=== PATIENT | female | born 1950 | race Caucasian/White ===

== ENCOUNTER 2020-03-20 12:03 | Outpatient (REF) | payer MEDICARE, SELFPAY | END 2020-03-20 12:04 | disposition home or self-care (01) | LOC: HO.10HDL 12:03 | PROVIDERS: Absent Provider Pediatrics; Visit Provider Internal Medicine | DX: E03.9 Hypothyroidism, unspecified (principal) | CPT/HCPCS: 36415; 84443 ==

== ENCOUNTER 2021-01-24 20:42 | Emergency (ER) | payer MEDICARE, SELFPAY ==
--- NOTE | ~2021-01-24 | CT_ITS ---
EXAMINATION: CT ABDOMEN AND PELVIS WITH AND WITHOUT CONTRAST: CT GI BLEEDING STUDY CLINICAL INFORMATION: Reason for Exam History of lymphocytic colitis, GI bleed, lower abd pain . COMPARISON: No pertinent prior studies are available for comparison. TECHNIQUE: Multidetector volumetric imaging was performed from the lung bases to the pubic symphysis before and after the administration of: Intravenous contrast: 80 mL Omnipaque 350 No contrast reaction reported MIP coronal, sagittal and coronal reformatted images were obtained on the technologist workstation. This CT examination was performed using dose optimization techniques as appropriate, variously including the following: *Automated exposure control *Adjustment of mA and/or kV according to patient size (this includes techniques or standardized protocols for targeted exams where dose is matched to indication/reason for exam; i.e. extremities or head) *Use of iterative reconstruction technique Total exam dose-length product 522 mGy-cm FINDINGS: STOMACH: No abnormal wall thickening or mass. No intraluminal contrast accumulation to suggest hemorrhage. Hyperdense tablets are identified dependently in the stomach fundus. SMALL BOWEL: There is pooling of contrast in the distal small bowel, concerning for active bleeding (image 138 of series 16). The small bowel is nondilated. COLON: No intraluminal contrast accumulation to suggest hemorrhage. There is submucosal fatty infiltration throughout the colon suggesting a chronic inflammatory or infectious process. No active inflammatory bowel changes. No bowel obstruction. Normal appendix. LUNG BASES: Dependent atelectasis. No focal consolidation. PLEURA: No pleural effusion. LIVER, GALLBLADDER, AND BILIARY TREE: The liver is normal in size, shape and attenuation. The common bile duct is dilated up to 1.4 cm. There is also mild intrahepatic biliary duct dilatation. No choledocholithiasis is identified. The patient is status post cholecystectomy. PANCREAS: The pancreatic duct at the level of the head is mildly dilated up to 6 mm. There are no discrete parenchymal lesions. SPLEEN: Normal size. No focal lesion. ADRENAL GLANDS: Normal; no mass. KIDNEYS AND URETERS: The kidneys are normal in size, shape, and attenuation. Right extrarenal pelvis. Tiny hypodensities bilaterally are too small to characterize although likely statistically represent simple cysts and do not require follow-up. No hydronephrosis, hydroureter, or calculi. ABDOMINAL WALL: No hernia seen. LYMPHOVASCULAR STRUCTURES: Mesenteric stranding and prominent mesenteric lymph nodes in the upper abdomen (image 38 of series 9) of uncertain etiology. No lymphadenopathy by size criteria. BLADDER: Linear accumulation of contrast in the dependent portion of the urinary bladder. No focal abnormalities. No perivesical fat stranding. PELVIC VISCERA: Hysterectomy. Trace amount of free fluid measuring simple fluid in attenuation. Ovaries are not identified, possibly bilateral oophorectomy. Correlate with surgical history. OSSEOUS STRUCTURES: Posterior fusion hardware in the lower lumbar spine/upper sacrum. Advanced thoracolumbar spondylosis. No acute or aggressive osseous abnormalities. CT/CT gi bleed abd pel wo/w con IMPRESSION: Hyperdensity within the lumen of the small bowel on postcontrast images that becomes more apparent in later phases of contrast, concerning for small bowel bleed. No definite colonic bleed. Dilatation of the common bile duct and proximal pancreatic duct worrisome for an occult lesion. Recommend further evaluation with an MR of the abdomen with MRCP and intravenous contrast. Mesenteric haziness and prominent mesenteric lymph nodes in the upper abdomen of uncertain etiology. This could be seen acutely in cases of mesenteric adenitis. This critical result was discussed with Dr. Gunter at 01/24/2021 11:08 PM and it was ascertained that the content and urgency of the report was understood at the time of direct communication.
[2021-01-24 20:46] VITALS: BP 105/48; PULSE 100; RESP 18; TEMP 36.7; O2SAT 98; BMI 26.2
--- NOTE | 2021-01-24 21:04 | PC.NURSE ---
while in the waiting room, this patient attempted to get up from her seat, per family with patient she felt dizzy sat back down and went unresponsive, this nurse was called to the patient and noted the patient to be having seizure like activity and was not responsive to verbal stimulus, this lasted approximately 1 minute, patients O2 sat was 95% HR 83 during this time. patient woke and was disoriented and noted to be incontinent of what looked to be blood. charge nurse was notified, stretcher was brought to the waiting room and patient was transferred to stretcher.
--- NOTE | 2021-01-24 21:05 | ECG_ITS ---
Test Reason : BLEED Blood Pressure : / mmHG Vent. Rate : 084 BPM Atrial Rate : 084 BPM P-R Int : 120 ms QRS Dur : 070 ms QT Int : 398 ms P-R-T Axes : 045 048 046 degrees QTc Int : 470 ms Normal sinus rhythm Normal ECG No previous ECGs available Referred By: Hieu Villeda Electronically Signed By:ATA MATOS MD
--- NOTE | 2021-01-24 21:11 | ED_ITS ---
HPI - GI Bleed General Chief complaint: GI Bleed Stated complaint: rectum bleeding Time Seen by Provider: 01/24/21 21:03 Source: patient Mode of arrival: ambulatory Limitations: no limitations History of Present Illness HPI Narrative: Patient with no history of any GI problems since 18:00 noticed maroon colored blood per rectum with clots small amount of stool associated with diffuse lower abdominal cramping and nausea. No fever no chills not on any anticoagulants patient never had similar complaint in the past had colonoscopy 3 years ago which was normal patient feels weak and dizzy Related Data Allergies Allergy/AdvReac Type Severity Reaction Status Date / Time vancomycin [VANCOMYCIN] Allergy Severe ANAPHYLAXIS Verified 01/24/21 20:45 amoxicillin [From AUGMENTIN] Allergy Intermediate DIARRHEA Verified 01/24/21 20:45 clavulanic acid Allergy Intermediate DIARRHEA Verified 01/24/21 20:45 [From AUGMENTIN] egg [EGG] Allergy Intermediate ABD PAIN Verified 01/24/21 20:45 morphine [MORPHINE] Allergy Intermediate VOMITING Verified 01/24/21 20:45 ofloxacin [From FLOXIN] Allergy Mild WORSENING Verified 01/24/21 20:45 EAR SX Sulfa (Sulfonamide Allergy Mild Unknown Verified 01/24/21 20:45 Antibiotics) sulfamethoxazole Allergy Mild JITTERY Verified 01/24/21 20:45 [From BACTRIM] trimethoprim [From BACTRIM] Allergy Mild JITTERY Verified 01/24/21 20:45 EGGS Allergy Unknown Unknown Uncoded 01/24/21 20:45 POLLEN MOLD Allergy Unknown Unknown Uncoded 01/24/21 20:45 Review of Systems Review of Systems: Yes all other systems are reviewed and are negative PMFSH Past Medical History Medical History FH: cholecystectomy Vipul's thyroiditis Lupus profundus Lymphocytic colitis Cook's neuroma Osteoarthritis Osteopenia Polychondritis Raynauds disease Surgical History H/O shoulder surgery H/O: hysterectomy History of back surgery Social History Social History Patient Tobacco Use Status: Never used Tobacco Advance Directives: No Advance Directives Information Provided: No Physical Exam Vital Signs: Vital Signs: Last Vital Signs Temp 97.5 F 01/24/21 23:26 Pulse 74 01/25/21 00:43 Resp 16 01/25/21 00:43 BP 115/52 L 01/25/21 00:43 Pulse Ox 100 01/25/21 00:43 Body Mass Index 26.2 Appearance: Alert. Oriented X3. Looks pale and weak Eyes: Pallor+ no icterus ENT: Pharynx normal. Oral Mucosa moist no gum bleeding Neck: Normal inspection. Neck supple. CVS: Normal heart rate and rhythm. Pulses normal. Respiratory: No respiratory distress. Equal air entry bilateral, no wheezing/r ales/rhonchi Abdomen: Soft , diffuse lower abdominal tenderness Bowel sounds are present, no mass palpable, no CVA tenderness Skin: Skin warm and dry. Normal skin color. Normal skin turgor. Extremities: No lower extremity edema. No calf tenderness Neuro: Oriented X 3. No motor deficit. Course Reevaluation(s) Reevaluation #1: Patient with lower GI bleed had heavy amount of bleeding on arrival then again had moderate amount of bleeding with blood clots at this time blood pressure is 124/62 pulse rate 80 hemoglobin 9.1 will be giving her 2 units of blood transfusion. Bleeding CT scan of abdomen showed small amount of active bleeding in distal ileum area. Will consult Dr. Rodriguez lead technologist in cytogenetics Time: 23:15 Reevaluation #2: Case discussed with Dr. Rodriguez GI specialist advised patient transferred to tertiary center for transcatheter embolization. Call [facility] not accepting patient transfer at this time, will try to call [facility] for transfer Time: 23:27 Reevaluation #3: Patient at this time not actively bleeding for last 2 hours vitals are stable case discussed with lead technologist in cytogenetics again advised transfer patient to tertiary center as patient may need embolization any time if bleeding recurs. Case discussed with at [facility], will take the patient to ER accepting doctor will be Dr. Joshua at [facility] Time: 00:51 MDM - GI Bleed MDM Narrative Medical decision making narrative: 21:00 Patient with major hematochezia with blood clots at this time blood pressure is stable 105/48 pulse rate 100 saturating 98% on room air will give her 1 unit of blood for now, tranexamic acid [address] scan of the abdomen Lab Data Result diagrams: 01/24/21 21:17 01/24/21 21:17 Labs: Lab Results 01/24/21 01/24/21 01/24/21 Range/Units 21:17 21:17 21:17 WBC 14.6 H (4.8-10.8) X10*3/uL RBC 3.18 L (4.20-5.50) X10*6/uL Hgb 9.1 L (12.0-16.0) g/dl Hct 27.6 L (37.0-47.0) % MCV 86.8 (80.0-98.0) fL MCH 28.6 (27.0-33.0) pg MCHC 33.0 (31.0-35.0) g/dl RDW 13.0 (11.0-16.0) % Plt Count 313 (160-400) X10*3/uL MPV 10.4 (9.4-12.3) fL Immature Gran % (Auto) 0.3 (0.0-0.4) % Neut % (Auto) 77.5 H (45-73) % Lymph % (Auto) 15.1 L (20-40) % Kent % (Auto) 5.8 (2-11) % Eos % (Auto) 0.3 (0-4) % Baso % (Auto) 1.0 (0-2) % Lymph # (Auto) 2.2 (1.2-4.9) X10*3/uL Kent # (Auto) 0.8 (0.1-1.2) X10*3/uL Eos # (Auto) 0.1 (0.0-0.4) X10*3/uL Baso # (Auto) 0.1 (0.0-0.2) X10*3/uL Abs Immat Gran (auto) 0.05 H (0.00-0.03) X10*3/uL Absolute Neuts (auto) 11.3 H (2.0-8.3) x10*3/uL Absolute Nucleated RBC 0.000 (0.0-0.012) X10*3/uL Nucleated RBC % (auto) 0.0 (0.0-0.2) /100WBC PT 13.1 H (9.9-13.0) SEC INR 1.2 H (0.9-1.1) APTT 28.9 (24.1-38.0) SEC Sodium 134 L (135-145) mmol/L Potassium 4.4 (3.3-5.1) mmol/L Chloride 110 H (96-108) mmol/L Carbon Dioxide 13 L (22-29) mmol/L Anion Gap 15 (12-20) BUN 17 H (9-16) mg/dL Creatinine 0.85 (0.5-1.4) mg/dL Estim Creat Clear Calc 57.5 Estimated GFR > 60 Random Glucose 173 H (60-115) mg/dL Lactic Acid (0.5-2.0) mmol/L Calcium 8.3 L (8.4-10.2) mg/dL Total Bilirubin 0.3 (0.0-1.0) mg/dL AST 30 (5-31) U/L ALT 16 (0-31) U/L Alkaline Phosphatase 116 (39-117) U/L Troponin I High Sens (<3.5-17.0) ng/L Total Protein 6.2 L (6.5-8.0) g/dL Albumin 3.5 (3.5-5.0) g/dL Lipase 18 (8-78) U/L COVID-19 (TEE) (Negative) COVID-19 Clin Com Blood Type Antibody Screen Crossmatch 01/24/21 01/24/21 01/24/21 Range/Units 21:17 21:17 21:20 WBC (4.8-10.8) X10*3/uL RBC (4.20-5.50) X10*6/uL Hgb (12.0-16.0) g/dl Hct (37.0-47.0) % MCV (80.0-98.0) fL MCH (27.0-33.0) pg MCHC (31.0-35.0) g/dl RDW (11.0-16.0) % Plt Count (160-400) X10*3/uL MPV (9.4-12.3) fL Immature Gran % (Auto) (0.0-0.4) % Neut % (Auto) (45-73) % Lymph % (Auto) (20-40) % Kent % (Auto) (2-11) % Eos % (Auto) (0-4) % Baso % (Auto) (0-2) % Lymph # (Auto) (1.2-4.9) X10*3/uL Kent # (Auto) (0.1-1.2) X10*3/uL Eos # (Auto) (0.0-0.4) X10*3/uL Baso # (Auto) (0.0-0.2) X10*3/uL Abs Immat Gran (auto) (0.00-0.03) X10*3/uL Absolute Neuts (auto) (2.0-8.3) x10*3/uL Absolute Nucleated RBC (0.0-0.012) X10*3/uL Nucleated RBC % (auto) (0.0-0.2) /100WBC PT (9.9-13.0) SEC INR (0.9-1.1) APTT (24.1-38.0) SEC Sodium (135-145) mmol/L Potassium (3.3-5.1) mmol/L Chloride (96-108) mmol/L Carbon Dioxide (22-29) mmol/L Anion Gap (12-20) BUN (9-16) mg/dL Creatinine (0.5-1.4) mg/dL Estim Creat Clear Calc Estimated GFR Random Glucose (60-115) mg/dL Lactic Acid 1.7 (0.5-2.0) mmol/L Calcium (8.4-10.2) mg/dL Total Bilirubin (0.0-1.0) mg/dL AST (5-31) U/L ALT (0-31) U/L Alkaline Phosphatase (39-117) U/L Troponin I High Sens < 3.5 (<3.5-17.0) ng/L Total Protein (6.5-8.0) g/dL Albumin (3.5-5.0) g/dL Lipase (8-78) U/L COVID-19 (TEE) (Negative) COVID-19 Clin Com Blood Type AB Positive Antibody Screen NEGATIVE Crossmatch See Detail 01/24/21 Range/Units 21:21 WBC (4.8-10.8) X10*3/uL RBC (4.20-5.50) X10*6/uL Hgb (12.0-16.0) g/dl Hct (37.0-47.0) % MCV (80.0-98.0) fL MCH (27.0-33.0) pg MCHC (31.0-35.0) g/dl RDW (11.0-16.0) % Plt Count (160-400) X10*3/uL MPV (9.4-12.3) fL Immature Gran % (Auto) (0.0-0.4) % Neut % (Auto) (45-73) % Lymph % (Auto) (20-40) % Kent % (Auto) (2-11) % Eos % (Auto) (0-4) % Baso % (Auto) (0-2) % Lymph # (Auto) (1.2-4.9) X10*3/uL Kent # (Auto) (0.1-1.2) X10*3/uL Eos # (Auto) (0.0-0.4) X10*3/uL Baso # (Auto) (0.0-0.2) X10*3/uL Abs Immat Gran (auto) (0.00-0.03) X10*3/uL Absolute Neuts (auto) (2.0-8.3) x10*3/uL Absolute Nucleated RBC (0.0-0.012) X10*3/uL Nucleated RBC % (auto) (0.0-0.2) /100WBC PT (9.9-13.0) SEC INR (0.9-1.1) APTT (24.1-38.0) SEC Sodium (135-145) mmol/L Potassium (3.3-5.1) mmol/L Chloride (96-108) mmol/L Carbon Dioxide (22-29) mmol/L Anion Gap (12-20) BUN (9-16) mg/dL Creatinine (0.5-1.4) mg/dL Estim Creat Clear Calc Estimated GFR Random Glucose (60-115) mg/dL Lactic Acid (0.5-2.0) mmol/L Calcium (8.4-10.2) mg/dL Total Bilirubin (0.0-1.0) mg/dL AST (5-31) U/L ALT (0-31) U/L Alkaline Phosphatase (39-117) U/L Troponin I High Sens (<3.5-17.0) ng/L Total Protein (6.5-8.0) g/dL Albumin (3.5-5.0) g/dL Lipase (8-78) U/L COVID-19 (TEE) Negative (Negative) COVID-19 Clin Com See Note Blood Type Antibody Screen Crossmatch Critical Care Time Critical Care Time Critical Care Time: Yes Total Critical Care Time: 50 Attestation: I spent 540 minutes of critical care, with interventions, assessments, speaking to patient, consultants, and family. Discharge Plan Discharge Clinical Impression: Lower gastrointestinal hemorrhage Patient Disposition: [facility] Acute [facility] Hospital Transfer Details: [facility] ER
[2021-01-24] MEDS: Tranexamic Acid 1,000 MG in 0.9 % Sodium Chloride 50 ML 360 MG IV (21:23)
[2021-01-24] MEDS: 0.9 % Sodium Chloride 1,000 ML 999 ML IV ×2 (21:23)
[2021-01-24] MEDS: Pantoprazole Sodium 40 MG/10 ML VIAL 80 MG IVPUSH (21:23)
[2021-01-24 21:26] LABS: MANUAL DIFF FLAG NO
[2021-01-24] MEDS: ondansetron HCL 4 MG/2 ML VIAL IVPUSH ×2 (21:27→21:59)
[2021-01-24 21:29] LABS: Basophils Absolute Auto 0.1 X10*3/uL (0.0-0.2); Eosinophils Absolute Auto 0.1 X10*3/uL (0.0-0.4); Eosinophils Percent Auto 0.3 % (0-4); Hematocrit 27.6 % (37.0-47.0); Hemoglobin 9.1 g/dl (12.0-16.0); Imm Gran Abs Auto 0.05 X10*3/uL (0.00-0.03); Imm Gran Pct Auto 0.3 % (0.0-0.4); Lymphocytes Absolute Auto 2.2 X10*3/uL (1.2-4.9); Lymphocytes Percent Auto 15.1 % (20-40); Mean Corpuscular Hemoglobin 28.6 pg (27.0-33.0); Mean Corpuscular Volume 86.8 fL (80.0-98.0); Mean Platelet Volume 10.4 fL (9.4-12.3); Monocytes Absolute Auto 0.8 X10*3/uL (0.1-1.2); Monocytes Percent Auto 5.8 % (2-11); Neutrophils Absolute Auto 11.3 x10*3/uL (2.0-8.3); Neutrophils Percent Auto 77.5 % (45-73); Platelet Count 313 X10*3/uL (160-400); Red Blood Count 3.18 X10*6/uL (4.20-5.50); White Blood Count 14.6 X10*3/uL (4.8-10.8)
[2021-01-24 21:34] LABS: INTERNATIONAL NORM RATIO 1.2 (0.9-1.1); Prothrombin Time 13.1 SEC (9.9-13.0)
[2021-01-24 21:36] LABS: Partial Thromboplastin Time 28.9 SEC (24.1-38.0)
[2021-01-24 21:39] VITALS: BP 138/67; PULSE 81; RESP 20; TEMP 36.5; O2SAT 100
[2021-01-24 21:40] LABS: Lactic Acid 1.7 mmol/L (0.5-2.0)
[2021-01-24 21:43] LABS: COVID-19 Test Negative (Negative)
[2021-01-24 21:46] LABS: Alanine Aminotransferase 16 U/L (0-31); Albumin Level 3.5 g/dL (3.5-5.0); Alkaline Phosphatase 116 U/L (39-117); Anion Gap 15 (12-20); Aspartate Amino Transferase 30 U/L (5-31); Bilirubin Total 0.3 mg/dL (0.0-1.0); Blood Urea Nitrogen 17 mg/dL (9-16); Calcium 8.3 mg/dL (8.4-10.2); Carbon Dioxide 13 mmol/L (22-29); Chloride 110 mmol/L (96-108); Creatinine Clr Calc Pharmacy 57.5; Estimated Glomerular Filt Rate > 60; Glucose Random 173 mg/dL (60-115); Lipase 18 U/L (8-78); Potassium 4.4 mmol/L (3.3-5.1); Sodium 134 mmol/L (135-145); Total Protein 6.2 g/dL (6.5-8.0)
--- NOTE | 2021-01-24 21:48 | PC.NURSE ---
pt a&o, no sob or chest pain. pt admitted with a large amount of rectal bleeding with clots. Two Iv lines placed, medicated per Mar. Ekg, labs, type and screen collected and sent. provider in to assess. Hospitalist into assess pt.
[2021-01-24 21:49] LABS: Troponin-I High Sensitivity < 3.5 ng/L (<3.5-17.0)
[2021-01-24] MEDS: iohexoL 350 MG/ML 100 ML INFUS..BTL IV (22:32)
[2021-01-24 22:41] VITALS: BP 144/40; PULSE 78; RESP 18; TEMP 36.4; O2SAT 100
[2021-01-24 23:10] VITALS: BP 124/62; PULSE 80; RESP 16; TEMP 36.6
[2021-01-24 23:26] VITALS: BP 114/70; PULSE 77; RESP 16; TEMP 36.4
--- NOTE | 2021-01-24 23:30 | PC.NURSE ---
first unit of blood transfusing. provider in to discuss transfer to another facility.
[2021-01-24] MEDS: Prochlorperazine Edisylate 10 MG/2 ML VIAL IVPUSH (23:35)
--- NOTE | 2021-01-25 00:40 | PC.NURSE ---
pt assisted to the bed levin. no bloody stool at this time.
[2021-01-25 00:43] VITALS: BP 115/52; PULSE 74; RESP 16; O2SAT 100
--- NOTE | 2021-01-25 00:45 | PC.NURSE ---
pt reports feeling better at this time.
[2021-01-25 01:02] VITALS: BP 124/48; PULSE 72; RESP 16; TEMP 36.7
[2021-01-25 01:26] VITALS: BP 124/48; PULSE 76; RESP 18; TEMP 36.7
[2021-01-25 01:43] VITALS: BP 149/58; PULSE 77; RESP 16; TEMP 36.7
--- NOTE | 2021-01-25 01:51 | PC.NURSE ---
Started second unit and second set of vitals taken. Ended second unit due to pt being transferred. Consulted with charge nurse in regards to process. Pt has not had no bloody stools for the last couple of hours. Report given to [employer]. Pt on route.
== END 2021-01-25 01:51 | disposition short-term general hospital (02) ==
PROVIDERS: Emergency Medicine Emergency Medical Services; Emergency Provider Internal Medicine; PCP Pediatrics
DX: K92.2 Gastrointestinal hemorrhage, unspecified (principal); Z20.822 Contact with and (suspected) exposure to COVID-19
CPT/HCPCS: 36415; 36430; 74178; 80053; 83605; 83690; 84484; 85025; 85610; 85730; 86850; 86900; 86901; 86923; 87635; 93005; 96361; 96374; 96375; 99285; 99291; J2405; P9016; Q9967

== ENCOUNTER 2022-01-08 14:54 | Outpatient (REF) | payer MEDICARE, SELFPAY ==
[2022-01-08 16:32] LABS: TSH reflex Free T4 5.12 uIU/mL (0.32-4.0)
== END 2022-01-08 14:55 | disposition home or self-care (01) ==
LOC: HO.LAB 14:54
PROVIDERS: PCP Internal Medicine; Visit Provider Internal Medicine
DX: E03.9 Hypothyroidism, unspecified (principal)
CPT/HCPCS: 36415; 84439; 84443

== ENCOUNTER 2022-04-10 14:30 | Outpatient (REF) | payer MEDICARE, SELFPAY ==
[2022-04-10 15:50] LABS: TSH reflex Free T4 2.32 uIU/mL (0.32-4.0)
== END 2022-04-10 14:31 | disposition home or self-care (01) ==
LOC: HO.LAB 14:30
PROVIDERS: PCP Internal Medicine; Visit Provider Internal Medicine
DX: E03.9 Hypothyroidism, unspecified (principal)
CPT/HCPCS: 36415; 84443

== ENCOUNTER 2023-10-08 12:58 | Outpatient (AMB) | payer MEDICARE, SELFPAY ==
--- NOTE | 2023-10-08 13:00 | A.OFFVIS_ITS ---
Vital Signs 10/08/23 13:01 Height 5 ft 3 in Weight 151 lb 14.376 oz BMI 26.9 BP 130/74 Blood Pressure Location Lt brachial Position Sitting Pulse 75 Pulse Source Pulse Oximeter Intake Visit Reasons: Hypothyroidism-confirmed Intake Note: New patient present today for Hypothyroidism. 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 Accompanied by: Self / Same As Patient Allergies vancomycin [VANCOMYCIN] Allergy (Severe, Verified 10/08/23 13:14) ANAPHYLAXIS amoxicillin [From AUGMENTIN] Allergy (Intermediate, Verified 10/08/23 13:14) DIARRHEA clavulanic acid [From AUGMENTIN] Allergy (Intermediate, Verified 10/08/23 13:14) DIARRHEA egg [EGG] Allergy (Intermediate, Verified 10/08/23 13:14) ABD PAIN morphine [MORPHINE] Allergy (Intermediate, Verified 10/08/23 13:14) VOMITING ofloxacin [From FLOXIN] Allergy (Mild, Verified 10/08/23 13:14) WORSENING EAR SX Sulfa (Sulfonamide Antibiotics) Allergy (Mild, Verified 10/08/23 13:14) Unknown sulfamethoxazole [From BACTRIM] Allergy (Mild, Verified 10/08/23 13:14) JITTERY trimethoprim [From BACTRIM] Allergy (Mild, Verified 10/08/23 13:14) JITTERY EGGS Allergy (Unknown, Uncoded 10/08/23 13:14) Unknown POLLEN MOLD Allergy (Unknown, Uncoded 10/08/23 13:14) Unknown Medication List - Last Reconciled 10/08/23 by Buddy Ortiz MD albuterol sulfate 90 mcg/actuation inhalation alendronate 70 mg PO QWEEK budesonide-formoterol 160-4.5 mcg/actuation (Symbicort) 1 inh inhalation BID diclofenac sodium 1% topical doxycycline monohydrate 100 mg PO BID estradiol 0.01%(0.1mg/gram) vaginal levothyroxine (Synthroid) 75 mcg PO DAILY lorazepam 0.5 mg PO DAILY meclizine 12.5 mg PO TID trazodone 150 mg PO BEDTIME HPI Comments Details: 73 YO F with who is seen in consultation at the request of his PCP for Hyothyroidism.Saw Alba Fiore First diagnosed with Hypothyroidism 30 yrs ago with labs revealing elevated TSH . Currently using levothyroxine 75 ug . Took 1 1/2 tabs up til 2 mos ago Denies + fatigue, muscle aches +weight gain, -cold intolerance, +dry skin, -hair loss, +constipation. There is no hx of hyperlipidemia . Denies obstructive sx of goiter . Denies consuming any kelp or seaweed. Denies taking amiodarone. Family history of hypothyroidism: sister, son Biotin: No Labs: [facility] Medical History (Updated 10/08/23 @ 13:06 by Buddy Ortiz MD) Hypothyroidism FH: cholecystectomy Cook's neuroma Osteoarthritis Raynauds disease Osteopenia Lymphocytic colitis Polychondritis Vipul's thyroiditis Lupus profundus Surgical History H/O shoulder surgery H/O: hysterectomy History of back surgery Family History (Updated 10/08/23 @ 13:13 by PADILLA John) Mother Lung cancer Father Heart problem Social History Alcohol intake: former Patient Tobacco Use Status: Never used Tobacco Physical Exam HEENT reveals absence of lid lag , stare or proptosis or eyebrow loss. Thyroid gland measure gms . No nodules or tenderness palpated. There is no cervical adenopathy palpated. Lungs CTA. Heart S1, S2 Reg R/R -M/R/G. Abdominal exam benign. Skin exam reveals absence of dryness or thyroid dermopathy or vitiligo. Nail exam reveals absence of thyroid acropachy or oncholysis. Neurologic exam reveals 2+ reflexes . Muscle Strength is 5/5 proximally. There are no tremors in upper extremities. Assessment & Plan Assessment & Plan (1) Hypothyroidism: Code(s): E03.9 - Hypothyroidism, unspecified Category: Medical Plan: This 73-year-old white female with a history of hypothyroidism due to Vipul's thyroiditis. She is currently being treated with 75 mcg levothyroxine branded Synthroid with recently elevated TSH level. She appears to be clinically euthyroid as several nonspecific symptoms Plan is to increase the Synthroid to 88 mcg. Recheck TSH and free T4 in 6 weeks time adjust Synthroid accordingly Orders: Orders Free T4 (Free Thyroxine) 6 Weeks E03.9 - Hypothyroidism, unspecified Thyroid Stimulating Hormone 6 Weeks E03.9 - Hypothyroidism, unspecified Medications: New Synthroid (levothyroxine) 88 mcg PO DAILY 30 tabs 4RF NS Coding Level of Care Code New Pt Level 4 (13197) Diagnoses Hypothyroidism E03.9
[2023-10-08 13:01] VITALS: BP 130/74; PULSE 75; BMI 26.9
== END 2023-10-08 13:42 | disposition home or self-care (01) ==
PROVIDERS: PCP Internal Medicine; Visit Provider Internal Medicine Endocrinology, Diabetes & Metabolism
DX: E03.9 Hypothyroidism, unspecified (principal)
CPT/HCPCS: 99204

== ENCOUNTER → 2023-10-08 12:58 | Outpatient (BNVA) | payer MEDICARE, SELFPAY | PROVIDERS: PCP Internal Medicine; Visit Provider Internal Medicine Endocrinology, Diabetes & Metabolism | DX: E03.9 Hypothyroidism, unspecified (principal) | CPT/HCPCS: 99202 ==

== ENCOUNTER 2023-11-19 12:43 | Outpatient (REF) | payer MEDICARE, SELFPAY ==
[2023-11-19 14:12] LABS: Free T4 (Free Thyroxine) 1.31 ng/dL (0.71-1.85); Thyroid Stimulating Hormone 0.78 uIU/mL (0.32-4.0)
== END 2023-11-19 12:44 | disposition home or self-care (01) ==
LOC: HO.10HDL 12:43
PROVIDERS: Visit Provider Internal Medicine Endocrinology, Diabetes & Metabolism
DX: E03.9 Hypothyroidism, unspecified (principal)
CPT/HCPCS: 36415; 84439; 84443

== ENCOUNTER 2024-01-06 12:11 | Outpatient (REF) | payer MEDICARE, SELFPAY ==
[2024-01-06 13:47] LABS: Free T4 (Free Thyroxine) 1.28 ng/dL (0.71-1.85); Thyroid Stimulating Hormone 0.99 uIU/mL (0.32-4.0)
== END 2024-01-06 12:12 | disposition home or self-care (01) ==
LOC: HO.LAB 12:11
PROVIDERS: PCP Internal Medicine; Visit Provider Internal Medicine Endocrinology, Diabetes & Metabolism
DX: E03.9 Hypothyroidism, unspecified (principal)
CPT/HCPCS: 36415; 84439; 84443

== ENCOUNTER 2024-02-04 13:39 | Outpatient (REF) | payer MEDICARE, SELFPAY ==
[2024-02-04 15:22] LABS: Thyroid Stimulating Hormone 1.15 uIU/mL (0.32-4.0)
== END 2024-02-04 13:40 | disposition home or self-care (01) ==
LOC: HO.LAB 13:39
PROVIDERS: PCP Internal Medicine; Visit Provider Internal Medicine Endocrinology, Diabetes & Metabolism
DX: E03.9 Hypothyroidism, unspecified (principal)
CPT/HCPCS: 36415; 84439; 84443

== ENCOUNTER 2024-02-15 12:53 | Outpatient (AMB) | payer MEDICARE, SELFPAY ==
--- NOTE | 2024-02-15 12:57 | MHC.OFFVIS ---
Vital Signs 02/15/24 13:00 Height 5 ft 3 in Weight 152 lb 8.958 oz BMI 27.0 BP 134/72 Blood Pressure Location Lt brachial Position Sitting Pulse 70 Pulse Source Pulse Oximeter Intake Visit Reasons: Hypothyroidism Intake Note: Patient present today for Hypothyroidism follow up. 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 Accompanied by: Self / Same As Patient Allergies vancomycin [VANCOMYCIN] Allergy (Severe, Verified 02/15/24 13:01) ANAPHYLAXIS amoxicillin [From AUGMENTIN] Allergy (Intermediate, Verified 02/15/24 13:01) DIARRHEA clavulanic acid [From AUGMENTIN] Allergy (Intermediate, Verified 02/15/24 13:01) DIARRHEA egg [EGG] Allergy (Intermediate, Verified 02/15/24 13:01) ABD PAIN morphine [MORPHINE] Allergy (Intermediate, Verified 02/15/24 13:01) VOMITING ofloxacin [From FLOXIN] Allergy (Mild, Verified 02/15/24 13:01) WORSENING EAR SX Sulfa (Sulfonamide Antibiotics) Allergy (Mild, Verified 02/15/24 13:01) Unknown sulfamethoxazole [From BACTRIM] Allergy (Mild, Verified 02/15/24 13:01) JITTERY trimethoprim [From BACTRIM] Allergy (Mild, Verified 02/15/24 13:01) JITTERY EGGS Allergy (Unknown, Uncoded 02/15/24 13:01) Unknown POLLEN MOLD Allergy (Unknown, Uncoded 02/15/24 13:01) Unknown Medication List - Last Reconciled 02/15/24 by Buddy Ortiz MD albuterol sulfate 90 mcg/actuation inhalation alendronate 70 mg PO QWEEK budesonide-formoterol 160-4.5 mcg/actuation (Symbicort) 1 inh inhalation BID diclofenac sodium 1% topical estradiol 0.01%(0.1mg/gram) vaginal lorazepam 0.5 mg PO DAILY meclizine 12.5 mg PO TID Synthroid (levothyroxine) 75 mcg PO DAILY NS trazodone 150 mg PO BEDTIME HPI Comments Details: 73 YO F with who is seen in consultation at the request of his PCP for Hyothyroidism.Saw Alba Cleaning Macarena First diagnosed with Hypothyroidism 30 yrs ago with labs revealing elevated TSH . Currently using levothyroxine 75 ug . Took 1 1/2 tabs up til 2 mos ago Denies + fatigue, muscle aches +weight gain, -cold intolerance, +dry skin, -hair loss, +constipation. There is no hx of hyperlipidemia . Denies obstructive sx of goiter . Denies consuming any kelp or seaweed. Denies taking amiodarone. Family history of hypothyroidism: sister, son Biotin: No Labs: [facility] Medical History (Updated 10/08/23 @ 13:06 by Buddy Ortiz MD) Hypothyroidism FH: cholecystectomy Cook's neuroma Osteoarthritis Raynauds disease Osteopenia Lymphocytic colitis Polychondritis Vipul's thyroiditis Lupus profundus Surgical History H/O shoulder surgery H/O: hysterectomy History of back surgery Family History (Updated 10/08/23 @ 13:13 by PADILLA John) Mother Lung cancer Father Heart problem Social History (Updated 10/08/23 @ 13:13 by PADILLA John) Alcohol intake: former Patient Tobacco Use Status: Never used Tobacco Physical Exam Const Other: Thyroid gland is normal size weighs about 15 g . 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 She is currently being treated with 75 mcg levothyroxine branded Synthroid . She appears to be clinically and biochemically euthyroid Plan is to continue the current therapy. At this point, patient can follow up with the primary care provider returned back to endocrinology as needed Coding Level of Care Code Est Pt Level 3 (35283) Diagnoses Hypothyroidism E03.9
[2024-02-15 13:00] VITALS: BP 134/72; PULSE 70; BMI 27.0
== END 2024-02-15 13:12 | disposition home or self-care (01) ==
PROVIDERS: PCP Internal Medicine; Visit Provider Internal Medicine Endocrinology, Diabetes & Metabolism
DX: E03.9 Hypothyroidism, unspecified (principal)
CPT/HCPCS: 99213

== ENCOUNTER → 2024-02-15 12:53 | Outpatient (BNVA) | payer MEDICARE, SELFPAY | PROVIDERS: PCP Internal Medicine; Visit Provider Internal Medicine Endocrinology, Diabetes & Metabolism | DX: E06.3 Autoimmune thyroiditis (principal); E03.9 Hypothyroidism, unspecified; Z79.899 Other long term (current) drug therapy | CPT/HCPCS: 99212 ==

== ENCOUNTER 2024-03-02 10:45 | Outpatient (AMB) | payer MEDICARE, SELFPAY ==
--- OUTSIDE RECORDS SUMMARY | 2024-03-02 10:48 | XMS_ITS ---
Author Organization [facility] Address [address] [place] [address] Care Team Providers Care Manager Trade Marketing Name Role Phone Bakari Medina Primary Care Provider UnavailLon Pool [facility] [phone] Encounters Encounter Location Date Provider Diagnosis [facility] [address] [place] [address] 10/19/2023 Lon Ware Plan Of Treatment No Information Progress Notes * ЕЛЕНА TatianaDOB:1950 (74 yo F)Acc No.[id number]:10/19/2023 Progress Note Patient:Tatiana NICOLAS Provider:?Lon Ware DPM :1950???Age:73 Y???Sex:Female D ate:10/19/2023 [facility] [place], [place] [id number] Pcp:Bakari Medina Subjective: * Chief Complaints: * ??? * Medical History:? Objective: * Vitals:? Assessment: Plan: * Treatment: * Images: * The named appointment provid er may or may not be the originator of this progress note, and it is not deemed complete until electronically signed by the appointment provider. Sign off status: Pending * Provider:Jef Ware DPM Date:? 024 Generated for Printi ng/Fakourtneyg/eTransmitting on:?03/02/2024 10:48 AM EST
--- OUTSIDE RECORDS SUMMARY | 2024-03-02 10:48 | XMS_ITS ---
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 Generated for Printi shelby/Ashkan/eTransmitting on:?03/02/2024 10:48 AM EST
--- NOTE | 2024-03-02 10:49 | A.OFFVIS_ITS ---
Vital Signs 03/02/24 10:51 Height 5 ft 3 in Weight 153 lb 0.013 oz BMI 27.1 BP 134/64 Blood Pressure Location Lt brachial Position Sitting Pulse 69 Pulse Source Pulse Oximeter Pulse Oximetry (%) 98 Oxygen Delivery Method Room Air Intake Visit Reasons: Arthritis Intake Note: Patient presents for follow up on arthritis and bursitis. She states she needs cortisone shot in right hip. Allergies vancomycin [VANCOMYCIN] Allergy (Severe, Verified 03/02/24 10:54) ANAPHYLAXIS amoxicillin [From AUGMENTIN] Allergy (Intermediate, Verified 03/02/24 10:54) DIARRHEA clavulanic acid [From AUGMENTIN] Allergy (Intermediate, Verified 03/02/24 10:54) DIARRHEA egg [EGG] Allergy (Intermediate, Verified 03/02/24 10:54) ABD PAIN morphine [MORPHINE] Allergy (Intermediate, Verified 03/02/24 10:54) VOMITING ofloxacin [From FLOXIN] Allergy (Mild, Verified 03/02/24 10:54) WORSENING EAR SX Sulfa (Sulfonamide Antibiotics) Allergy (Mild, Verified 03/02/24 10:54) Unknown sulfamethoxazole [From BACTRIM] Allergy (Mild, Verified 03/02/24 10:54) JITTERY trimethoprim [From BACTRIM] Allergy (Mild, Verified 03/02/24 10:54) JITTERY EGGS Allergy (Unknown, Uncoded 03/02/24 10:54) Unknown POLLEN MOLD Allergy (Unknown, Uncoded 03/02/24 10:54) Unknown HPI HPI Arthritis: Details: She is having difficulty with grabbing things with her hands in holding them. No items have dropped out of her hands. She is not having a lot of pain in her hands. She is taking turmeric to help reduce pain in her feet. She was told she had arthritis in her feet. In the last week she has been having pain right lateral hip. She received cortisone injection for trochanteric [facility]ursitis [facility]. She is having difficulty sleeping on her side. [facility] Medical History (Updated 03/02/24 @ 12:39 by Amilcar Kan MD) Hypothyroidism FH: cholecystectomy Cook's neuroma Osteoarthritis Raynauds disease Osteopenia Lymphocytic colitis Polychondritis Vipul's thyroiditis Lupus profundus Surgical History H/O shoulder surgery H/O: hysterectomy History of back surgery Family History Mother Lung cancer Father Heart problem Social History Alcohol intake: former Patient Tobacco Use Status: Never used Tobacco Review of Systems Const All systems reviewed & are unremarkable except as noted in HPI and below Physical Exam Vital Signs: Last Vital Signs Pulse 69 03/02/24 10:51 BP 134/64 03/02/24 10:51 Pulse Ox 98 03/02/24 10:51 Oxygen Delivery Method Room Air 03/02/24 10:51 BMI result Body Mass Index 27.1 Const Other: General: Comfortable CVS: RRR Respiratory: clear to auscultation bilaterally. Good respiratory effort Skin: No lesions seen MSK: No tenderness of any joints. Heberden's nodes present. Subluxation of DIPJ knees. 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 Right trochanteric bursa tenderness found. Good range of motion of hip. Office Procedures AMB Joint Injection/Aspiration Joint Injection/Aspiration Details: Right trochanteric bursa Prep: site was prepped using aseptic technique Injected: 40 mg of, Kenalog, with 1 mL of and 1% plain lidocaine Procedure: The patient tolerated the procedure well Coding 15177 - Large joint Procedure code (CPT) selection complete Office Meds Kenalog 40 mg/mL suspension for injection Performing Provider: Amilcar Kan MD Performing Location: [facility] Administered by: Amilcar Kan MD on 03/02/24 12:36 Dose Route Admin Location Dispensed Lot Number Expiration Date [facility] Demand Planning Manager 40 mg intrabursal 1 mL AP [id number] [employer] lidocaine (PF) 10 mg/mL (1 %) injection solution Performing Provider: Amilcar Kan MD Performing Location: [facility] Administered by: Amilcar Kan MD on 03/02/24 12:36 Dose Route Admin Location Dispensed Lot Number Expiration Date [facility] Demand Planning Manager 10 mg Infiltration 2 mL [id number] [facility] Assessment & Plan Assessment & Plan (1) Trochanteric bursitis: Comment: Right recurrent. Code(s): M70.60 - Trochanteric bursitis, unspecified hip Category: Medical Plan: Right trochanteric bursa cortisone injection given this visit [facility] hip strengthening exercise program printed for patient to do when cortisone injection wears off. She has a high co-pay for physical therapy. [facility] Return to clinic in 3 months. (2) Osteoarthritis, hand: Comment: Clinical diagnosis. We discussed conservative management to improve strength in her hands. Code(s): M19.049 - Primary osteoarthritis, unspecified hand Category: Medical Qualifiers: Osteoarthritis type: primary Laterality: bilateral Qualified Code(s): M19.041 - Primary osteoarthritis, right hand; M19.042 - Primary osteoarthritis, left hand Plan: She agreed to Occupational therapy We discussed the benefit with turmeric helping to reduce pain related to hand osteoarthritis but since she is not experiencing pain, I recommend discontinuing turmeric. Return to clinic in 3 months Orders: Orders AMB Joint Injection/Aspiration Today M70.60 - Trochanteric bursitis, unspecified hip OT Evaluation and Treatment Today M19.049 - Primary osteoarthritis, unspecified hand Coding Level of Care Code Est Pt Level 4 (59251) Complex EM visit Add On G2211 Diagnoses Trochanteric bursitis M70.60 Primary osteoarthritis of both hands M19.041; M19.042 Osteoarthritis type: primary Laterality: bilateral CPT Codes Coding - 17766 Large joint: 86254 - Large joint ([id number])
--- OUTSIDE RECORDS SUMMARY | 2024-03-02 10:49 | XMS_ITS ---
Author Organization [facility] Address [address] [place] [address] Care Team Providers Care Channel Process Supervisor Name Role Phone Bakari Medina Primary Care Provider UnavailLon Pool [phone] REASON FOR VISIT Refill Request Medications Medication SIG (Take, Route, Frequency, Duration) Notes Start Date End Date Status Voltaren 1 % as directed External ly apply bid to toe for 30 days Active Encounters Encounter Location Date Provider Diagnosis [facility] [address] [place] [address] 08/27/2023 Lon Ware Hallux rigidus, left foot M20.22 Assessments Encounter Date Diagnosis (ICD Code) Assessment Notes Treatment Notes Treatment Clinical Notes Section Notes 08/27/2023 Hallux rigidus, left foot (ICD-10 - M20.22) Plan Of Treatment Medication Medication Name Sig Start Date Stop Date Notes Voltaren 1 % as directed External ly apply bid to toe for 30 days Progress Notes * Tatiana BARILLASDOB:1950 (73 yo F)Acc No.[id number]:08/27/2023 Patient:?Eran Tatiana :1950???Age:73 Y???Sex:Female Address:[address] [place] [address], [address] * Refills? Refill Voltaren Gel, 1 %, Externally, 90, as directed, apply bid to toe, 30 days, Refills=6 * true * Date:? Generated for Noy ryan/Ashkan/Waltitting on:?03/02/2024 10:48 AM EST
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
[2024-03-02 10:51] VITALS: BP 134/64; PULSE 69; O2SAT 98; BMI 27.1
== END 2024-03-02 11:25 | disposition home or self-care (01) ==
PROVIDERS: PCP Internal Medicine; Visit Provider Internal Medicine Rheumatology
DX: M70.61 Trochanteric bursitis, right hip (principal); M19.041 Primary osteoarthritis, right hand; M19.042 Primary osteoarthritis, left hand
CPT/HCPCS: 20610; 99213

== ENCOUNTER → 2024-03-02 10:45 | Outpatient (BNVA) | payer MEDICARE, SELFPAY | PROVIDERS: PCP Internal Medicine; Visit Provider Internal Medicine Rheumatology | DX: M70.61 Trochanteric bursitis, right hip (principal); M19.041 Primary osteoarthritis, right hand; M19.042 Primary osteoarthritis, left hand | CPT/HCPCS: 20610; 99212; J2003; J3300 ==

== ENCOUNTER 2024-06-01 10:41 | Outpatient (AMB) | payer MEDICARE, SELFPAY ==
--- NOTE | 2024-06-01 10:42 | MHC.OFFVIS ---
Vital Signs 06/01/24 10:47 Height 5 ft 3 in Weight 147 lb 4 oz BMI 26.1 BP 160/70 H Blood Pressure Location Lt brachial Position Sitting Pulse 83 Pulse Oximetry (%) 95 Oxygen Delivery Method Room Air Intake Visit Reasons: 3 mo follow up Intake Note: Patient presents for follow up on arthritis and bursitis. She states she needs cortisone shot in right hip. Accompanied by: Self / Same As Patient Allergies vancomycin [VANCOMYCIN] Allergy (Severe, Verified 06/01/24 10:56) ANAPHYLAXIS amoxicillin [From AUGMENTIN] Allergy (Intermediate, Verified 06/01/24 10:56) DIARRHEA clavulanic acid [From AUGMENTIN] Allergy (Intermediate, Verified 06/01/24 10:56) DIARRHEA egg [EGG] Allergy (Intermediate, Verified 06/01/24 10:56) ABD PAIN morphine [MORPHINE] Allergy (Intermediate, Verified 06/01/24 10:56) VOMITING ofloxacin [From FLOXIN] Allergy (Mild, Verified 06/01/24 10:56) WORSENING EAR SX Sulfa (Sulfonamide Antibiotics) Allergy (Mild, Verified 06/01/24 10:56) Unknown sulfamethoxazole [From BACTRIM] Allergy (Mild, Verified 06/01/24 10:56) JITTERY trimethoprim [From BACTRIM] Allergy (Mild, Verified 06/01/24 10:56) JITTERY EGGS Allergy (Unknown, Uncoded 03/02/24 10:54) Unknown POLLEN MOLD Allergy (Unknown, Uncoded 03/02/24 10:54) Unknown HPI HPI 3 mo follow up: Details: Hip pain reoccured a few days ago. Hard to sleep. She is having intermittent foot pain of bilateral feet. PFSH Medical History Hypothyroidism FH: cholecystectomy Cook's neuroma Osteoarthritis Raynauds disease Osteopenia Lymphocytic colitis Polychondritis Vipul's thyroiditis Lupus profundus Surgical History H/O shoulder surgery H/O: hysterectomy History of back surgery Family History Mother Lung cancer Father Heart problem Social History Alcohol intake: former Patient Tobacco Use Status: Never used Tobacco Review of Systems Const All systems reviewed & are unremarkable except as noted in HPI and below Physical Exam Vital Signs: Last Vital Signs Pulse 83 06/01/24 10:47 BP 160/70 H 06/01/24 10:47 Pulse Ox 95 06/01/24 10:47 Oxygen Delivery Method Room Air 06/01/24 10:47 BMI result Body Mass Index 26.1 Const Other: General: Comfortable CVS: RRR Respiratory: clear to auscultation bilaterally. Good respiratory effort Skin: No lesions seen MSK: No tenderness of any joints. Heberden's nodes present. Subluxation of DIPJ. Right trochanteric bursa tenderness found. Good range of motion of hip. No tenderness of MTPs. No synovitis. Subluxation of right 3rd toe on 2nd toe. Office Procedures AMB Joint Injection/Aspiration Joint Injection/Aspiration Details: Right trochanteric bursa Prep: site was prepped using aseptic technique Injected: 40 mg of, Kenalog, with 1 mL of and 1% plain lidocaine Procedure: The patient tolerated the procedure well. Postprocedure protocol was discussed with patient. Coding 50365 - Large joint Procedure code (CPT) selection complete Office Meds lidocaine (PF) 10 mg/mL (1 %) injection solution Performing Provider: Amilcar Kan MD Performing Location: [facility] Administered by: Amilcar Kan MD on 06/01/24 12:41 Dose Route Admin Location Dispensed Lot Number Expiration Date [facility] Technology Consultant 10 mg Infiltration 2 mL [id number] [facility] Kenalog 40 mg/mL suspension for injection Performing Provider: Amilcar Kan MD Performing Location: [facility] Administered by: Amilcar Kan MD on 06/01/24 12:41 Dose Route Admin Location Dispensed Lot Number Expiration Date [facility] Technology Consultant 40 mg intra-articular 1 mL AP [id number] [employer] Assessment & Plan Assessment & Plan (1) Trochanteric bursitis: Comment: Right recurrent. Code(s): M70.60 - Trochanteric bursitis, unspecified hip Category: Medical Qualifiers: Laterality: right Qualified Code(s): M70.61 - Trochanteric bursitis, right hip Plan: Right trochanteric bursa cortisone injection given this visit [facility] hip strengthening exercise program printed for patient last visit. I recommend that she start exercise program a few weeks after this visit. She has a high co-pay for physical therapy. Return to clinic in 3 months. (2) Foot pain, bilateral: Comment: Intermittent. Unremarkable exam for localizing pain. Code(s): M79.671 - Pain in right foot; M79.672 - Pain in left foot Category: Medical Plan: We discussed importance of wearing supportive footwear at home and when she is out. If she has persistent foot pain, I will order x-rays at her follow-up appointment Return to clinic in 3 months (3) Osteoarthritis, hand: Comment: Clinical diagnosis. Asymptomatic. Code(s): M19.049 - Primary osteoarthritis, unspecified hand Category: Medical Qualifiers: Osteoarthritis type: primary Laterality: bilateral Qualified Code(s): M19.041 - Primary osteoarthritis, right hand; M19.042 - Primary osteoarthritis, left hand Plan: Monitor clinically Orders: Orders AMB Joint Injection/Aspiration Today M70.60 - Trochanteric bursitis, unspecified hip Coding Level of Care Code Est Pt Level 4 (03015) Complex EM visit Add On G2211 Diagnoses Trochanteric bursitis of right hip M70.61 Laterality: right Foot pain, bilateral M79.671; M79.672 Primary osteoarthritis of both hands M19.041; M19.042 Osteoarthritis type: primary Laterality: bilateral CPT Codes Coding - 90345 Large joint: 02049 - Large joint ([id number])
[2024-06-01 10:47] VITALS: BP 160/70; PULSE 83; O2SAT 95; BMI 26.1
== END 2024-06-01 11:23 | disposition home or self-care (01) ==
LOC: HO.RHES 10:41
PROVIDERS: PCP Internal Medicine; Visit Provider Internal Medicine Rheumatology
DX: M70.61 Trochanteric bursitis, right hip (principal); M79.671 Pain in right foot; M79.672 Pain in left foot; M19.041 Primary osteoarthritis, right hand; M19.042 Primary osteoarthritis, left hand
CPT/HCPCS: 20610; 99214

== ENCOUNTER → 2024-06-01 10:41 | Outpatient (BNVA) | payer MEDICARE, SELFPAY | PROVIDERS: PCP Internal Medicine; Visit Provider Internal Medicine Rheumatology | DX: M70.61 Trochanteric bursitis, right hip (principal); M19.041 Primary osteoarthritis, right hand; M19.042 Primary osteoarthritis, left hand; M79.671 Pain in right foot; M79.672 Pain in left foot | CPT/HCPCS: 20610; 99212; J2003; J3300 ==

== ENCOUNTER 2024-09-23 10:34 | Outpatient (AMB) | payer MEDICARE, SELFPAY ==
[2024-09-23 10:46] VITALS: BP 132/76; PULSE 65; O2SAT 98; BMI 26.9
--- NOTE | 2024-09-23 10:46 | MHC.OFFVIS ---
Vital Signs 09/23/24 10:46 Height 5 ft 3 in Weight 152 lb 1.903 oz BMI 26.9 BP 132/76 Blood Pressure Location Lt brachial Position Sitting Pulse 65 Pulse Source Pulse Oximeter Pulse Oximetry (%) 98 Oxygen Delivery Method Room Air Intake Visit Reasons: 3 Months Intake Note: Patient presents for follow up on arthritis and bursitis. Allergies vancomycin (VANCOMYCIN) Allergy (Severe, Verified 09/23/24 10:53) ANAPHYLAXIS amoxicillin (From AUGMENTIN) Allergy (Intermediate, Verified 09/23/24 10:53) DIARRHEA clavulanic acid (From AUGMENTIN) Allergy (Intermediate, Verified 09/23/24 10:53) DIARRHEA egg (EGG) Allergy (Intermediate, Verified 09/23/24 10:53) ABD PAIN morphine (MORPHINE) Allergy (Intermediate, Verified 09/23/24 10:53) VOMITING ofloxacin (From FLOXIN) Allergy (Mild, Verified 09/23/24 10:53) WORSENING EAR SX Sulfa (Sulfonamide Antibiotics) Allergy (Mild, Verified 09/23/24 10:53) Unknown sulfamethoxazole (From BACTRIM) Allergy (Mild, Verified 09/23/24 10:53) JITTERY trimethoprim (From BACTRIM) Allergy (Mild, Verified 09/23/24 10:53) JITTERY EGGS Allergy (Unknown, Uncoded 09/23/24 10:53) Unknown POLLEN MOLD Allergy (Unknown, Uncoded 09/23/24 10:53) Unknown HPI HPI 3 Months: Details: She had benefit with right trochanteric bursa injection. She continues to have pain at this time. She saw a pasteurizer helper who gave her an insert that change the positioning of her toes 2 weeks ago. She has found benefit with that. Last night she had right foot pain and had to use diclofenac gel with benefit. PFS Medical History Hypothyroidism FH: cholecystectomy Cook's neuroma Osteoarthritis Raynauds disease Osteopenia Lymphocytic colitis Polychondritis Vipul's thyroiditis Lupus profundus Surgical History H/O shoulder surgery H/O: hysterectomy History of back surgery Family History Mother Lung cancer Father Heart problem Social History Alcohol intake: former Patient Tobacco Use Status: Never used Tobacco Physical Exam Vital Signs: Last Vital Signs Pulse 65 09/23/24 10:46 BP 132/76 09/23/24 10:46 Pulse Ox 98 09/23/24 10:46 Oxygen Delivery Method Room Air 09/23/24 10:46 BMI result Body Mass Index 26.9 Const Other: General: Comfortable CVS: RRR Respiratory: clear to auscultation bilaterally. Good respiratory effort Skin: No lesions seen MSK: She has a nodule proximal to radial carpal joint along the 3rd extensor tendon. No pain on palpation of nodule. No tenderness of any joints. Heberden's nodes present. Subluxation of DIPJ. Bilateral trochanteric bursa tenderness found. Normal range of motion of hip. Office Procedures AMB Joint Injection/Aspiration Joint Injection/Aspiration Details: Right trochanteric bursa Prep: site was prepped using aseptic technique Injected: 40 mg of, Kenalog, with 1 mL of and 1% plain lidocaine Procedure: Informed verbal consent was obtained. The patient tolerated the procedure well. Postprocedure protocol was discussed with patient. Coding 45909 - Large joint Procedure code (CPT) selection complete Office Meds lidocaine (PF) 10 mg/mL (1 %) injection solution Performing Provider: Amilcar Kan MD Performing Location[place] [facility] Administered by: Amilcar Kan MD on 09/23/24 11:08 Dose Route Admin Location Dispensed Lot Number Expiration Date [facility] [employer] 10 mg Infiltration 2 mL [id number] 08/13/26 82547-584-13 [employer] Total Dispensed Waste 2 mL 50 % Kenalog 40 mg/mL suspension for injection Performing Provider: Amilcar Kan MD Performing Location: [facility] Administered by: Amilcar Kan MD on 09/23/24 11:08 Dose Route Admin Location Dispensed Lot Number Expiration Date [facility] [employer] 40 mg intrabursal 1 mL [id number] 10/13/25 [address]-5 [employer] Total Dispensed Waste 1 mL 0 % Assessment & Plan Assessment & Plan (1) Trochanteric bursitis: Comment: Right recurrent. Code(s): M70.60 - Trochanteric bursitis, unspecified hip Category: Medical Qualifiers: Laterality: right Qualified Code(s): M70.61 - Trochanteric bursitis, right hip Plan: Patient received right trochanteric bursa cortisone injection this visit Continue home exercise program. High co-pay for PT. Return to clinic in 3 months (2) Nodule of skin of right hand: Comment: Unclear etiology. Nonpainful. Code(s): R22.31 - Localized swelling, mass and lump, right upper limb Category: Medical Plan: X-ray right hand ordered Return to clinic in 3 months (3) Foot pain, bilateral: Comment: Intermittent. She recently received insert from pasteurizer helper to help support subluxation of her toes. Code(s): M79.671 - Pain in right foot; M79.672 - Pain in left foot Category: Medical Plan: Continue to wear supportive footwear and insert provided by pasteurizer helper Follow up with pasteurizer helper as needed Continue diclofenac gel 1% applied to affected area PRN pain Return to clinic in 3 months (4) Osteoarthritis, hand: Comment: Clinical diagnosis. Asymptomatic. Code(s): M19.049 - Primary osteoarthritis, unspecified hand Category: Medical Qualifiers: Osteoarthritis type: primary Laterality: bilateral Qualified Code(s): M19.041 - Primary osteoarthritis, right hand; M19.042 - Primary osteoarthritis, left hand Plan: Monitor clinically Orders: Orders AMB Joint Injection/Aspiration Today M70.61 - Trochanteric bursitis, right hip XR hand RT min 3V Today R22.31 - Localized swelling, mass and lump, right upper limb Medications: Changed From diclofenac sodium 1% topical To diclofenac sodium 1% 2 grams topical QID PRN 100 grams 5RF Joint pain Coding Level of Care Code Est Pt Level 4 (04627) Complex EM visit Add On G2211 Diagnoses Trochanteric bursitis of right hip M70.61 Laterality: right Nodule of skin of right hand R22.31 Foot pain, bilateral M79.671; M79.672 Primary osteoarthritis of both hands M19.041; M19.042 Osteoarthritis type: primary Laterality: bilateral CPT Codes Coding - Large joint: 20241 - Large joint ([id number])
--- OUTSIDE RECORDS SUMMARY | 2024-09-23 11:08 | XMS_ITS | Clinical Summary ---
Author Organization [facility] Address [address] [place] [address] Care Team Providers Care X Ray Nurse Name Role Phone Viki Hobbs MD Primary Care Provider Allergies Active Allergy Reactions Criticality Noted Date Comments Amoxicillin-Pot Clavulanate Diarrhea Low 01/25/2021 Egg-Derived Products GI Intolerance/Nausea/Vomitin g Low 01/25/2021 Morphine GI Intolerance/Nausea/Vomitin g Low 01/25/2021 Ofloxacin Unknown/Patient and Family Unable to Define Medium 01/25/2021 Sulfa Antibiotics Other (See Comments) 01/26/20 21 Jittery Vancomycin Anaphylaxis High 01/25/2021 Medications albuterol (PROVENTIL HFA; VENTOLIN HFA) 108 (90 Base) MCG/ACT inhaler Inhale 2 puffs every 4 (four) hours as needed for wheezing. Active alendronate (FOSAMAX) 70 MG tablet Take 70 mg by mouth every 7 days. On Thursday. Active diclofenac (VOLTAREN) 1 % gel Apply topically 2 (two) times a day. Use dosing card to measure dose. Apply to entire affect area. Active dicyclomine (BENTYL) 10 MG capsule Take 10 mg by mouth 3 (three) times a day as needed for cramping. Active estradiol (ESTRACE) 0.01 % vaginal cream Insert 2 g into the vagina 2 (two) times a week. Active levothyroxine (Synthroid) 150 MCG tablet Take 75 mcg by mouth daily on an empty stomach. Active mesalamine (ASACOL HD) [address] tablet Take 1,600 mg by mouth 2 (two) times a day. Active OMEprazole (PriLOSEC) 40 MG capsule Take 40 mg by mouth every morning before breakfast. Active traZODone (DESYREL) 100 MG tablet Take 100 mg by mouth nightly. With 25 mg to make 125 mg daily dosage. Active traZODone (DESYREL) 50 MG tablet Take 25 mg by mouth nightly. With 100 mg to make 125 mg daily dosage. Active LORazepam (ATIVAN) 0.5 MG tablet Take 0.5 mg by mouth 2 (two) times a day as needed for anxiety. Active meclizine (ANTIVERT) 12.5 MG tablet Take 12.5 mg by mouth as needed for dizziness. Active traMADol (ULTRAM) 50 MG tablet Take 50 mg by mouth 3 times daily (every 8 hours) as needed (for pain.). Active multivitamin (multivitamin) Tab tablet Take 1 tablet by mouth daily. Active Biotin w/ Vitamins C & E (HAIR/SKIN/NAIL S PO) Take 1 tablet by mouth daily. Active Polyvinyl Alcohol-Povidon e (REFRESH OP) Administer 1 drop to both eyes as needed (for dry eyes.). Active loratadine (CLARITIN) 10 MG tablet Take 10 mg by mouth daily as needed for allergies. Active Oxymetazoline HCl (VICKS SINEX NA) 1 spray into each nostril as needed (for allergy.). Active fluticasone (FloNASE) 50 mcg/spray nasal spray 1-2 sprays into each nostril daily as needed for rhinitis or allergies. Active calcium carbonate-vitam in D 600 mg-400 unit tablet Take 1 tablet by mouth daily. Active Active Problems Problem Noted Date Diagnosed Date GI bleed 01/25/2021 Acute blood loss anemia 01/25/2021 Syncope and collapse 01/25/2021 Acquired hypothyroidism 01/25/2021 Gastroesophageal reflux disease without esophagi tis 01/25/2021 Leukocytosis 01/25/2021 Hyponatremia 01/25/2021 Metabolic acidosis 01/25/2021 Common bile duct dilatation 01/25/2021 Family History Medical History Relation Name Comments Emphysema Father Heart disease Father Lung cancer Mother Relation Name Status Comments Father Mother Social History Tobacco Use Types Packs/Day Years Used Date Smoking Tobacco: Never Smokeless Tobacco: Never Alcohol Use Standard Drinks/Week Comments Never 0 (1 standard drink = 0.6 oz pur e alcohol) Comments No Sex and Gender Information Value Date Recorded Sex Assigned at Not on file Legal Sex Female 11:44 PM EST Gender Identity Female 01/29/2021 2:41 PM EST Sexual Orientation Heterosexual (straight) 01/29 2:41 PM EST Last Filed Vital Signs Vital Sign Reading Time Taken Comments Blood Pressure 96/63 01/28/2021 8:00 AM EST Pulse 82 01/28/2021 8:00 AM EST Temperature 36.9 C (98.4 F) 01/28/2021 8:00 AM EST Respiratory Rate 18 01/28/2021 8:00 AM EST Oxygen Saturation 95% 01/28/2021 12:12 PM EST Inhaled Oxygen Concentration - - Weight - - Height - - Body Mass Index - - Plan of Treatment Health Maintenance Due Date Last Done Comments Hepatitis C Virus Screening 1950 DTaP/Tdap/Td Vaccines (1 - Tdap) 1970 Mammogram 1991 Colonoscopy 02/12/1996 Pneumococcal Vaccines 50+ (1 of 1 - PCV) 2001 Zoster (Shingles) Vaccine (1 of 2) 2001 DXA Bone Density (Females,Ages 65 and older) 02/12/2016 COVID-19 Vaccine (4 - 2023-2 5 season) 2023 01/14/2021, 06/07/2020, 05/10/2020 Influenza Vaccine 10/14/2024 RSV Vaccine 60 years and older and Patients (1 - 1-dose 75+ series) 2026 Hepatitis B Vaccines Aged Out No long er eligible based on patient's age to complete this topic Insurance , [place] [id number] [place] [address] MEDICARE [place] MEDICARE Advance Directives * Full Code (Latest Code Status on File) Date Activated Date Inactivated Comments 01/25/2021 7:04 AM Care Teams X Ray Nurse Relationship Specialty Start Date End Date Viki Hobbs MD [address] [place] [id number] PCP - General 01/25/21
--- OUTSIDE RECORDS SUMMARY | 2024-09-23 11:08 | XMS_ITS | Clinical Summary ---
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 Floxin Otic : EARS SWELLED Penicillins 03/04/2023 Sulfa (Sulfonamide Antibiotics) Other 01/25/2021 Jittery Vancomycin Anaphylaxis,Itching High 06/19/2016 Medications acetaminophen (TYLENOL 8 HOUR) 650 mg 8 hr tablet Take 1 tablet (650 mg total) by mouth every 8 (eight) hours if needed. For pain 10/24/19 23 Active albuterol HFA (PROAIR HFA ; PROVENTIL HFA ; VENTOLIN HFA) 90 mcg/actuation inhaler Inhale 2 puffs by mouth. into the lungs every 4 hours as needed for Cough, Wheezing or Shortness of Breath 02/17/20 23 Active alendronate (FOSAMAX) 70 mg tablet Take 1 tablet (70 mg total) by mouth. ONCE A WEEK 04/21/19 24 Active budesonide-formote roL (SYMBICORT) 160-4.5 mcg/actuation inhaler Inhale 2 puffs by mouth. into the lungs 2 times daily. 02/17/20 23 Active calcium carbonate-vitamin D3 600 mg-5 mcg (200 unit) capsule Take by mouth. 1 tab po tid Active loratadine (CLARITIN) 10 mg tablet Take 1 tablet (10 mg total) by mouth 1 (one) time each day. Active meclizine (ANTIVERT) 12.5 mg tablet Take 1 tablet (12.5 mg total) by mouth. 3 TIMES DAILY NEEDED FOR VERTIGO 04/09/19 Active MULTIVITAMIN ORAL Take by mouth. ONE QD Active inhalat.spacing dev,large mask spacer Use with inhaler as needed 09/23/19 Active tiZANidine (ZANAFLEX) 4 mg capsule Take 1 Capsule by mouth at bedtime as needed for Muscle spasms. 09/15/19 24 Active magnesium oxide 500 mg magnesium tablet Take 1 tablet by mouth 1 (one) time each day. 02/05/20 24 Active estradioL (ESTRACE) 0.01 % (0.1 mg/gram) vaginal cream PLACE 1 GRAM VAGINALLY TWICE A WEEK 42.5 g 1 02/21/20 24 Active traZODone (DESYREL) 50 mg tablet TAKE 1/2 TABLET (25 MG) BY MOUTH AT BEDTIME (WITH 100MG TOTAL 125MG) 45 tablet 1 05/02/19 25 Active omeprazole (PriLOSEC) [address] capsule TAKE 1 CAPSULE BY MOUTH TWICE A DAY 180 capsule 1 05/04/19 25 Active fluticasone propionate (FLONASE) 50 mcg/actuation nasal spray SPRAY 2 SPRAYS BY NASAL ROUTE DAILY 16 mL 1 06/01/19 25 Active traMADoL (ULTRAM) 50 mg tablet Take 1 tablet (50 mg total) by mouth 1 (one) time each day if needed for severe pain. Max Daily Amount: 50 mg 21 tablet 06/18/19 25 Active traZODone (DESYREL) 100 mg tablet TAKE 1 TABLET BY MOUTH AT BEDTIME. (TAKE WITH 25MG FOR TOTAL NIGHTLY DOSE OF 125MG.) 90 tablet 1 08/02/19 25 Active LORazepam (ATIVAN) 0.5 mg tablet Take 1 tablet (0.5 mg total) by mouth 1 (one) time each day if needed for anxiety. Max Daily Amount: 0.5 mg 28 tablet 09/14/19 25 Active levothyroxine (SYNTHROID, LEVOTHROID) 75 mcg tabletIndications: Acquired hypothyroidism Take 1 tablet Thursday through Thursday and 2 tablets on Sundays. 90 tablet 09/14/19 25 Active levothyroxine (SYNTHROID, LEVOTHROID) 75 mcg tablet Take 1 tablet (75 mcg total) by mouth 1 (one) time each day before breakfast. 90 tablet 06/29/19 25 025 Discontin ued(Reord er) LORazepam (ATIVAN) 0.5 mg tablet Take 1 tablet (0.5 mg total) by mouth 1 (one) time each day if needed for anxiety. Max Daily Amount: 0.5 mg 28 tablet 08/17/19 25 025 Discontin ued(Reord er) Active Problems Problem Noted Date Diagnosed Date SLE (systemic lupus erythema tosus) ([facility] V24, [facility] V28) 05/07/2023 Overview (05/07/2023): Dr. Beltrán, Subacromial bursitis 05/07/2023 Overview (05/07/2023): R, injected by Dr Beltrán, 02/22 Lung nodule 06/20/2022 Mild persistent asthma without complication 04/0 09/2022 Chronic midline low back pain without sciatica 0 09/02/2021 Right hip pain 09/02/2021 Moderate persistent asthma without complication 09/02/2021 Raynaud's disease 02/21/2021 GI bleed 02/21/2021 Overview (05/07/2023): 01/25/2021 Transferred from [facility] to [facility]. Received multiple blood transfusions. Leukocytosis 02/21/2021 Overview (05/07/2023): During GI Bleed hospitalization 01/25/2021. 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 Allergic rhinitis 02/21/2021 Syncope and collapse 01/25/2021 Osteoporosis 12/15/2017 Lymphocytic colitis 06/07/2008 Assessment & Plan (03/30/2024 9:49 AM EST): Assessment & Plan (02/18/2024 4:00 PM EST): Add a second imodium daily Cataract 06/07/2008 Overview (05/07/2023): Bilat eyes Insomnia, unspecified 08/28/2006 IBS (irritable bowel syndrome) 01/26/2006 GERD (gastroesophageal reflux disease) 6 Anxiety state 09/09/2005 Overview (12/15/2023): ANXIETY Hypothyroidism 09/08/2005 Lupus panniculitis 09/08/2005 Tubular adenoma 03/16/2004 Shingles 09/14/2003 Overview (12/15/2023): History of shingles Encounters Date Type Department Care Team Description 09/07/2024 Telephone Adult Medicine [address] [phone] Bakari Medina MD Request For Order(s) 09/06/2024 Telephone Adult Medicine [address] [phone] Chichi Mccollum MA Referral 08/29/2024 Telephone Adult Medicine [address] [phone] Bakari Medina MD Referral from Last 3 Months Immunizations Name Administration Dates Next Due Moderna SARS-CoV-2 COVID-19, mRNA, LNP-S, preservative free 01/14/2021 Td Tetanus diptheria (Tdvax) 7yo and older 04/22 Tdap Tetanus diptheria acell ular pertussis (Boostrix; Adacel) 7yo and older 09/02/2021,06/25/2011 Surgical History Surgery Date Site/Laterality Comments BACK SURGERY PROCEDURE: HISTORICAL BACK SURGERY; COMMENT: x's 3 L3-L4 OTHER SURGICAL HISTORY 04/28/02 PROCEDURE: HISTORICAL TOTAL HYSTERECTOMY W/O BSO CHOLECYSTECTOMY 05/18 PROCEDURE: NC CHOLECYSTECTOMY UPPER GASTROINTESTINAL ENDOSCOPY 10/20/02 PROCEDURE: NC UPPER GI ENDOSCOPY PERFORMED TUBAL LIGATION PROCEDURE: HISTORICAL TUBAL LIGATION OTHER SURGICAL HISTORY 10/12/14 PROCEDURE: MYELOGRAM OF LOWER SPINE; COMMENT: L1-L5 [facility] COLONOSCOPY 12/14/2017 - 01/13/2018 Dr. Vo, unremarkable (5yr -hx polyp) COLONOSCOPY 03/16/2013 - 03/15/2014 Dr. Vo COLONOSCOPY 04/16/2008 - 05/13/2008 Dr. Vo, nl with bx consistent with lymphocytic colitis ESOPHAGOGASTRODUODENOSCOPY 12/14/2017 - 01/13/2018 Dr. Vo - unremarkable ESOPHAGOGASTRODUODENOSCOPY 01/14/2021 - 02/12/2021 [place] as inpt for bleed - unremarkble per notes Medical History Medical History Date Comments Systemic lupus erythematosus ([facility] V24, [facility] V28) 09/08/2005 DX:Systemic lupus erythemato martin ([facility]) Systemic lupus erythematosus ([facility] V24, [facility] V28) 09/08/2005 DX:Systemic lupus erythemato martin (HCC) Unspecified hypothyroidism 09/08/2005 DX:Un specified hypothyroidism Anxiety state, unspecified 09/09/2005 DX:An xiety state, unspecified Heartburn 09/09/2005 DX:Heartburn Lumbago 09/09/2005 DX:Lumbago Irritable bowel syndrome 01/26/2006 DX:Irri table bowel syndrome Lymphocytic colitis 05/17/2008 DX:Lymphocyt ic colitis Cataract DX:Cataract; COM MENT: bilat eyes Allergic rhinitis DX:Allergic rh initis Tubular adenoma 2004 DX:Tubular adeno ma Shingles 09/2003 DX:Shingles SLE (systemic lupus erythema tosus) ([facility] V24, [facility] V28) DX:SLE (systemic lupus eryt hematosus) ([facility]); COMMENT: Dr. Beltrán, Subacromial bursitis DX:Subacrom ial bursitis; COMMENT: R, injected by Dr Beltrán, 02/22 Lupus panniculitis 09/08/2005 DX:Lupus pann iculitis GI bleed 02/21/2021 DX:GI bleed; COM MENT: 01/25/2021 Transferred from [facility] to [facility]. Received multiple blood transfusions. 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 Highly suspected myoclonic jerking 2nd to orthostatic syncope event in setting of GI bleed. GERD (gastroesophageal reflu x disease) 02/21/2021 DX:GERD (gastroesophageal re flux disease) Leukocytosis 02/21/2021 DX:Leukocytosis; COMMENT: During GI Bleed hospitalization 01/25/2021. Osteoporosis 12/15/2017 DX:Osteoporosis Insomnia 08/28/2006 DX:Insomnia IBS (irritable bowel syndrome) 01/26/2006 D X:IBS (irritable bowel syndrome) Family History Medical History Relation Name Comments No Known Problems Brother 1 Hypertension Brother 2 Hyperlipidemia Brother 3 high No Known Problems Daughter Other: Emphysema Father 50 Other: heart Father No Known Problems Maternal Grandfather No Known Problems Maternal Grandmother Other cancer Mother Throat; 50 's Lung cancer No Known Problems Other No Known Problems Paternal Grandfather No Known Problems Paternal Grandmother No Known Problems Sister 1 No Known Problems Sister 2 No Known Problems Sister 3 Thyroid disease Sister 4 corinne Other: anemia Sister 5 love No Known Problems Son 1 No Known Problems Son 2 Breast cancer Neg Hx Relation Name Status Comments Brother 1 Alive Brother 2 Brother 3 Daughter Alive Father Maternal Grandfather Maternal Grandmother Mother Other Paternal Grandfather Paternal Grandmother Sister 1 Alive Sister 2 Alive Sister 3 Alive Sister 4 Sister 5 Son 1 Alive Son 2 Alive Social History Tobacco Use Types Packs/Day Years Used Date Smoking Tobacco: Former Smokeless Tobacco: Never Tobacco Cessation:Counseling Given: Not Answered Alcohol Use Standard Drinks/Week Comments Yes 0 (1 standard drink = 0.6 oz pur e alcohol) Comments No Sex and Gender Information Value Date Recorded Sex Assigned at Female 02/03/2024 5:24 PM EST Legal Sex Female 7:04 AM EST Gender Identity Female 02/03/2024 5:24 PM EST Sexual Orientation Straight 02/03/2024 5: 24 PM EST Obstetrics History Last Filed Vital Signs Vital Sign Reading Time Taken Comments Blood Pressure 105/56 05/25/2024 1:27 PM EDT Pulse 69 05/25/2024 1:27 PM EDT Temperature 36.1 C (97 F) 05/25/2024 1:27 PM EDT Respiratory Rate 16 05/25/2024 1:27 PM EDT Oxygen Saturation 97% 05/25/2024 1:27 PM EDT Inhaled Oxygen Concentration - - Weight 68 kg (150 lb) 05/25/2024 1:27 PM EDT Height 160 cm (5' 3 ) 05/25/2024 1:27 PM EDT Body Mass Index 26.57 05/25/2024 1:27 PM EDT Plan of Treatment Upcoming Encounters Date Type Department Care Team (Late st Contact Info) Description 09/30/2024 2:00 PM EDT Office Visit Adult [facility] - [address] [phone] Bakari Medina MD [address] [place] [id number] 10/18/2024 4:00 PM EDT Appointment Radiology Department - [address] [phone] Health Maintenance Due Date Last Done Comments Pneumococcal Vaccine: 50+ Years (1 of 2 - PCV) 1970 Zoster Vaccines (1 of 2) 2001 RSV Immunization Adult Patients (1 - Risk 60-74 years 1-dose series) 2011 Medicare Annual Wellness Visit 02/22/2022 Social Influencers of Health Screening 02/22/2022 Falls Risk Assessment 09/16/2023 09/15/2022 COVID-19 Vaccine ( - season) 2023 01/14/2021, 06/07/2020, 05/10/2020 Depression Screening 09/14/2024 09/15/2023, 09/16/19 23 Influenza Vaccine (#1) 2024 Breast Cancer Screening 09/29/2025 09/30/19 24, 09/30/2023, 09/17/2022, Additional history exists Osteoporosis Screening (Bone Density Screening) 12/10/2027 12/09/2017 Cholesterol Screening (Lipid Panel) 02/17/2028 02/16/2023 Colorectal Cancer Screening: Colonoscopy 04/12/2029 04/12/2024, 03/31/2024, 01/05/2018 DTaP,Tdap,and Td Vaccines (4 - Td or Tdap) 09/03/2031 09/02/2021, 06/25/2011, 04/22/2001 Hepatitis C Screening Completed 07/18/2013 HIB Vaccines Aged Out No longer eligi ble based on patient's age to complete this topic HPV Vaccines Aged Out No longer eligi ble based on patient's age to complete this topic Hepatitis A Vaccines Aged Out No long er eligible based on patient's age to complete this topic Hepatitis B Vaccines Aged Out No long er eligible based on patient's age to complete this topic IPV Vaccines Aged Out No longer eligi ble based on patient's age to complete this topic MMR Vaccines Aged Out No longer eligi ble based on patient's age to complete this topic Meningococcal ACWY Vaccine Aged Out N o longer eligible based on patient's age to complete this topic Meningococcal B Vaccine Aged Out No l onger eligible based on patient's age to complete this topic RSV Immunization Patients Under 20 months Aged Out No longer eligible based on patient's age to complete this topic Varicella Vaccines Aged Out No longer eligible based on patient's age to complete this topic Procedures Procedure Name Priority Date/Time Associated Diagnosis Comments TRIIODOTHYRONINE FREE Routine 09/08/2024 11:39 AM EDT Hypothyroidism, unspecified type FREE THYROXINE WITH REFLEX TO FREE TRIIODOTHYRONINE Routine 09/08/2024 11:39 AM EDT Hypothyroidism, unspecified type CBC WITH AUTO DIFFERENTIAL Routine 09/08/2024 11:39 AM EDT Screening for deficiency anemia BASIC METABOLIC PANEL Routine 09/08/2024 11:39 AM EDT Acquired hypothyroidism Moderate persistent asthma without complication Lung nodule Gastroesophageal reflux disease without esophagitis Chronic midline low back pain without sciatica Lymphocytic colitis Insomnia, unspecified type Encounter for osteoporosis screening in asymptomatic postmenopausal patient Anemia, unspecified type MAGNESIUM Routine 09/08/2024 11:39 AM EDT Acquired hypothyroidism Moderate persistent asthma without complication Lung nodule Gastroesophageal reflux disease without esophagitis Chronic midline low back pain without sciatica Lymphocytic colitis Insomnia, unspecified type Encounter for osteoporosis screening in asymptomatic postmenopausal patient Anemia, unspecified type CBC AND DIFFERENTIAL Routine 09/08/2024 11:39 AM EDT Screening for deficiency anemia THYROID STIMULATING HORMONE WITH REFLEX TO FREE T4 AND FREE T3 Routine 09/08/2024 11:39 AM EDT Hypothyroidism, unspecified type EXTERNAL COLONOSCOPY REPORT Routine 04/12/2024 5:08 PM EST SCREENING MAMMOGRAPHY BI 2-VIEW BREAST INC CAD Routine 09/30/2023 10:13 AM EDT Encounter for screening mammogram for malignant neoplasm of breast DEPRESSION SCREENING Routine 09/15/2023 LIPID PANEL Routine 02/16/2023 DXA BONE DENSITY STUDY 1+ SITS AXIAL SKEL Routine 12/09/2017 12:14 PM EDT Encounter for screening for osteoporosis HEPATITIS C SCREENING Routine 07/18/2013 from Last 3 Months or Most Recently Relevant to Health Maintenance Results * (ABNORMAL) Thyroid stimulating hormone with reflex to free t4 and free t3 (09/08/2024 11:39 AM EDT) TSH 5.88(H) 0.40 - 4.00 mcIU/mL LAB CHEMISTRY METHOD 09/08/2024 4:59 PM EDT [facility] ([facility]) [facility] Blood Venous blood specimen / Unknown Venipuncture / Unknown 09/08/2024 11:39 AM EDT 09/08/2024 11:39 AM EDT us Bakari Medina MD LAB BLOOD ORDERABLES Final Result Performing Organization Address City/[facility]/ZIP Co de Phone Number [facility] [address] [place] [address], [place] [phone] * Free thyroxine with reflex to free triiodothyronine (09/08/2024 11:39 AM EDT) [facility] Free T4 1.10 0.70 - 1.80 ng/dL LAB CHEMISTRY METHOD 09/08/2024 6:23 PM EDT [facility] Blood Venous blood specimen / Unknown Venipuncture / Unknown 09/08/2024 11:39 AM EDT 09/08/2024 11:39 AM EDT Bakari Medina MD LAB BLOOD ORDERABLES Final Result Performing Organization Address [facility]/ZIP Co de Phone Number [facility] [address] [place] [address], [place] [phone] * (ABNORMAL) CBC auto differential (09/08/2024 11:39 AM EDT) [facility] WBC 4.9 4.8 - 10.8 K/mcL LAB HEMETOLOGY METHOD 09/08/2024 2:17 PM EDT [facility] RBC 4.30 3.80 - 4.80 [facility] LAB HEMETOLOGY METHOD 09/08/2024 2:17 PM EDT [facility] Hemoglobin 12.4 11.5 - 16.0 g/dL LAB HEMETOLOGY METHOD 09/08/2024 2:17 PM EDT [facility] Hematocrit 39.6 35.0 - 47.0 % LAB HEMETOLOGY METHOD 09/08/2024 2:17 PM EDT [facility] MCV 93.0 79.0 - 98.0 FL LAB HEMETOLOGY METHOD 09/08/2024 2:17 PM EDT [facility] MCH 29.1 27.0 - 32.0 pcg LAB HEMETOLOGY METHOD 09/08/2024 2:17 PM EDT [facility] MCHC 31.3(L) 32.0 - 37.0 g/dL LAB HEMETOLOGY METHOD 09/08/2024 2:17 PM [facility] RDW 12.7 11.0 - 15.0 % LAB HEMETOLOGY METHOD 09/08/2024 2:17 PM T [facility] Platelets 205 130 - 400 K/mcL LAB HEMETOLOGY METHOD 09/08/2024 2:17 PM [facility] MPV 10.9 7.0 - 11.0 FL LAB HEMETOLOGY METHOD 09/08/2024 2:17 PM [facility] NRBC 0.0 <1.0 % LAB HEMETOLOGY METHOD 09/08/2024 2:17 PM [facility] NRBC Absolute 0.00 <0.10 K/mcL LAB HEMETOLOGY METHOD 09/08/2024 2:17 PM [facility] Neutrophils Relative 62.0 % LAB HEMETOLOGY METHOD 09/08/2024 2:17 PM [facility] Lymphocytes Relative 28.8 % LAB HEMETOLOGY METHOD 09/08/2024 2:17 PM [facility] Monocytes Relative 5.1 % LAB HEMETOLOGY METHOD 09/08/2024 2:17 PM [facility] Eosinophils Relative 3.1 % LAB HEMETOLOGY METHOD 09/08/2024 2:17 PM [facility] Basophils Relative 0.8 % LAB HEMETOLOGY METHOD 09/08/2024 2:17 PM [facility] Immature Granulocytes Relative 0.2 % LAB HEMETOLOGY METHOD 09/08/2024 2:17 PM [facility] Neutrophils Absolute 3.04 1.50 - 7.00 K/mcL LAB HEMETOLOGY METHOD 09/08/2024 2:17 PM EDT [facility] Lymphocytes Absolute 1.41 1.00 - 5.00 K/mcL LAB HEMETOLOGY METHOD 09/08/2024 2:17 PM EDT [facility] Monocytes Absolute 0.25 0.20 - 1.00 K/mcL LAB HEMETOLOGY METHOD 09/08/2024 2:17 PM EDT [facility] Eosinophils Absolute 0.15 0.00 - 0.50 K/mcL LAB HEMETOLOGY METHOD 09/08/2024 2:17 PM EDT [facility] Basophils Absolute 0.04 0.00 - 0.20 K/mcL LAB HEMETOLOGY METHOD 09/08/2024 2:17 PM EDT [facility] Immature Granulocytes Absolute 0.01 0.00 - 0.03 K/mcL LAB HEMETOLOGY METHOD 09/08/2024 2:17 PM EDT [facility] Blood Venous blood specimen / Unknown Venipuncture / Unknown 09/08/2024 11:39 AM EDT 09/08/2024 11:39 AM EDT Bakari Medina MD LAB BLOOD ORDERABLES Final Result [facility] [address] [place] [address], * Triiodothyronine free (09/08/2024 11:39 AM EDT) T3, Free 262 230 - 420 pcg/dL LAB CHEMISTRY METHOD 09/08/2024 6:54 PM EDT [facility] Blood Venous blood specimen / Unknown Venipuncture / Unknown 09/08/2024 11:39 AM EDT 09/08/2024 11:39 AM EDT Bakari Medina MD LAB BLOOD ORDERABLES Final Result [facility] [address] [place] [address], [place] [phone] * Magnesium (09/08/2024 11:39 AM EDT) [facility] Magnesium 2.0 1.9 - 2.6 mg/dL LAB CHEMISTRY METHOD 09/08/2024 4:14 PM EDT [facility] Blood Venous blood specimen / Unknown Venipuncture / Unknown 09/08/2024 11:39 AM EDT 09/08/2024 11:39 AM EDT Bakari Medina MD LAB BLOOD ORDERABLES Final Result Performing Organization Address [facility]/ZIP Co de Phone Number [facility] [address] [place] [address], [place] [phone] * (ABNORMAL) Basic metabolic panel (09/08/2024 11:39 AM EDT) [facility] Sodium 141 133 - 145 mmol/L LAB CHEMISTRY METHOD 09/08/2024 4:14 PM EDT [facility] Potassium 3.7 3.5 - 5.5 mmol/L LAB CHEMISTRY METHOD 09/08/2024 4:14 PM EDT [facility] Chloride 107 96 - 110 mmol/L LAB CHEMISTRY METHOD 09/08/2024 4:14 PM EDT [facility] CO2 25 21 - 32 mmol/L LAB CHEMISTRY METHOD 09/08/2024 4:14 PM EDT [facility] Anion Gap 9 3 - 11 LAB CHEMISTRY METHOD 09/08/2024 4:14 PM [facility] Glucose 156(H) 70 - 100 mg/dL LAB CHEMISTRY METHOD 09/08/2024 4:14 PM EDT [facility] BUN 15 5 - 25 mg/dL LAB CHEMISTRY METHOD 09/08/2024 4:14 PM EDT [facility] Creatinine 1.12(H) 0.50 - 1.10 mg/dL LAB CHEMISTRY METHOD 09/08/2024 4:14 PM EDT [facility] eGFR 52(L) >=60 mL/min/1. 73m2 LAB CHEMISTRY METHOD 09/08/2024 4:14 PM EDT [facility] Comment:Calculation based on the Chronic Kidney Disease Epidemiology Collaboration (CKD-EPI) equation refit without adjustment for race. BUN/Creatinine Ratio 13.4 LAB CHEMISTRY METHOD 09/08/2024 4:14 PM EDT [facility] Calcium 8.8 8.5 - 10.5 mg/dL LAB CHEMISTRY METHOD 09/08/2024 4:14 PM EDT [facility] Blood Venous blood specimen / Unknown Venipuncture / Unknown 09/08/2024 11:39 AM EDT 09/08/2024 11:39 AM EDT Bakari Medina MD LAB BLOOD ORDERABLES Final Result [facility] [address] [place] [address], * External Colonoscopy Report (04/12/2024 5:08 PM EST) Anatomical Region Laterality Modality Endoscopy Historical Provider GI~PROCEDURE ORDERABLES F inal Result * SCREENING MAMMOGRAPHY BI 2-VIEW BREAST INC CAD (09/30/2023 10:13 AM EDT) Anatomical Region Laterality Modality Radiographic Nancy ging 09/17/2022 10:2 1 AM EDT Narrative 09/30/2023 1:50 PM EDT This is a summary report. The complete report is available in the patient's medical record. If you cannot access the medical record, please contact the sending organization for a detailed fax or copy. Full field digital screening tomosynthesis mammography, reviewed with CAD and compared to previous. The breasts are composed of fatty and fibroglandular tissue. No suspicious mass, architectural distortion or suspicious calcifications are identified. IMPRESSION: : No mammographic evidence of malignancy. BIRADS 1-Negative; N. 5 year breast cancer risk assessment 1.6 % Lifetime breast cancer risk assessment 4.1 % Breast cancer risk category Low (<15%) Procedure Note Matias Martinez MD - 12/30/2023 This is a summary report. The complete report is available in thepatient's medical record. If you cannot access the medical record, pleasecontact the sending organization for a detailed fax or copy. Full field digital screening tomosynthesis mammography, reviewed with CADand compared to previous. The breasts are composed of fatty andfibroglandular tissue. No suspicious mass, architectural distortion orsuspicious calcifications are identified. IMPRESSION: : No mammographic evidence of malignancy. BIRADS 1-Negative; N. 5 year breast cancer risk assessment 1.6 % Lifetime breast cancer risk assessment 4.1 % Breast cancer risk category Low (<15%) Bakari Medina MD IMG XR PROCEDURES Final Res ult * Depression Screening (09/15/2023) Pathologist [facility] Depression Screening Abstracted Historical Provider HEALTH MAINTENANCE Final Result * (ABNORMAL) Lipid panel (02/16/2023) LDL/HDL Ratio 3 0 - 4 Triglycerides 126 0 - 150 mg/dL Cholesterol 210(A) 0 - 200 mg/dL HDL 64 >=40 mg/dL LDL Cholesterol 121(A) 0 - 100 mg/dL Blood Venous blood specimen / Unknown Historical Provider LAB BLOOD ORDERABLES Edit ed Result - Final * DXA BONE DENSITY STUDY 1+ SITS AXIAL SKEL (12/09/2017 12:14 PM EDT) Anatomical Region Laterality Modality Bone Densitometr y 10/05/2017 11:4 3 AM EDT Narrative 12/09/2017 5:02 PM EDT BONE DENSITY Lumbar Spine T-score is +1.0 (SD relative to 20-29 y/o adult) Z-score is +2.9 (SD relative to age matched peers) This is normal by criteria defined by the WHO. Left Hip T-score is -2.5 Z-score is -0.9 This is consistent with osteoporosis by criteria defined by the WHO. Comparison exam(s): significant decrease in bone density of hip when compared to most recent bone density examination Confidence level is +/-95%. Impression: Based on the World Health Organization criteria, Tatiana Barillas should be classified as having osteoporosis. [facility] Department of Internal Medicine recommends using National Osteoporosis Foundation (NOF) guidelines in treatment decisions related to osteoporosis. NOF guidelines suggest considering treatment for postmenopausal women and men aged 50 or older presenting with the following: History of hip or vertebral fracture. T-score less than or equal to -2.5 (DXA) at the femoral neck, total hip, or spine, after appropriate evaluation to exclude secondary causes. Low bone mass (T-score between -1.0 and -2.5 at the femoral neck or spine) AND a 10-year probability of a hip fracture greater than or equal to 3% OR a 10-year probability of a major osteoporosis-related fracture greater than or equal to 20% based on the [place]-adapted WHO algorithm Please note that all treatment decisions require clinical judgment and consideration of individual patient factors, including patient preferences, co-morbidities, previous drug use, risk factors not captured in the FRAX model (e.g., frailty, falls, vitamin D deficiency, increased bone turnover, interval significant decline in bone density) and possible under- or over-estimation of fracture risk by FRAX. Procedure Note Crystal Husain MD - 03/04/2022 BONE DENSITY Lumbar Spine T-score is +1.0 (SD relative to 20-29 y/o adult) Z-score is +2.9 (SD relative to age matched peers) This is normal by criteria defined by the WHO. Left Hip T-score is -2.5 Z-score is -0.9 This is consistent with osteoporosis by criteria defined by the WHO. Comparison exam(s): significant decrease in bone density of hip whencompared to most recent bone density examination Confidence level is +/-95%. Impression: Based on the World Health Organization criteria, Tatiana Barillas should beclassified as having osteoporosis. [facility] Department of Internal Medicine recommendsusing National Osteoporosis Foundation (NOF) guidelines in treatmentdecisions related to osteoporosis. NOF guidelines suggest consideringtreatment for postmenopausal women and men aged 50 or older presentingwith the following: History of hip or vertebral fracture. T-score less than or equal to -2.5 (DXA) at the femoral neck, total hip,or spine, after appropriate evaluation to exclude secondary causes. Low bone mass (T-score between -1.0 and -2.5 at the femoral neck or spine)AND a 10-year probability of a hip fracture greater than or equal to 3% ORa 10-year probability of a major osteoporosis-related fracture greaterthan or equal to 20% based on the [place]-adapted WHO algorithm Please note that all treatment decisions require clinical judgment andconsideration of individual patient factors, including patientpreferences, co-morbidities, previous drug use, risk factors not capturedin the FRAX model (e.g., frailty, falls, vitamin D deficiency, increasedbone turnover, interval significant decline in bone density) and possibleunder- or over-estimation of fracture risk by FRAX. 

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
== END 2024-09-23 11:18 | disposition home or self-care (01) ==
LOC: HO.RHES 10:35
PROVIDERS: PCP Internal Medicine; Visit Provider Internal Medicine Rheumatology
DX: M70.61 Trochanteric bursitis, right hip (principal); R22.31 Localized swelling, mass and lump, right upper limb; M79.671 Pain in right foot; M79.672 Pain in left foot; M19.041 Primary osteoarthritis, right hand; M19.042 Primary osteoarthritis, left hand
CPT/HCPCS: 20610; 99214

== ENCOUNTER → 2024-09-23 10:34 | Outpatient (BNVA) | payer MEDICARE, SELFPAY | PROVIDERS: PCP Internal Medicine; Visit Provider Internal Medicine Rheumatology | DX: M70.61 Trochanteric bursitis, right hip (principal); R22.31 Localized swelling, mass and lump, right upper limb; M79.671 Pain in right foot; M79.672 Pain in left foot; M19.041 Primary osteoarthritis, right hand; M19.042 Primary osteoarthritis, left hand | CPT/HCPCS: 20610; 99212; J2003; J3300 ==

== ENCOUNTER 2024-09-26 13:05 | Outpatient (REF) | payer MEDICARE, SELFPAY ==
--- NOTE | ~2024-09-26 | XR_ITS ---
EXAMINATION: XR HAND, RIGHT CLINICAL INFORMATION: R22.31 - Localized swelling, mass and lump, right upper limb COMPARISON: None available. TECHNIQUE: PA, lateral, and oblique views of the right hand. FINDINGS: There is moderate to severe asymmetric joint space narrowing involving the DIP joint of the second, third, and fifth digits. There is moderate deviation of the second joint. PIP joints demonstrate moderate asymmetric narrowing of the second, third, and fifth digits with ulnar deviation at the second, third, and fifth joints. Otherwise, joint spaces are preserved. There are no erosions. There are nonspecific soft tissue calcifications There is soft tissue swelling involving the second and third digits. XR/XR hand RT min 3V IMPRESSION: Moderate osteoarthritis involving the fingers. Electronically signed by: Teddy Ibarra MD 09/26/2024 01:33 PM EDT
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
--- OUTSIDE RECORDS SUMMARY | 2024-09-26 14:07 | XMS_ITS | Clinical Summary ---
Author Organization [facility] Address [address] [place] [address] Phone Care Team Providers Care Coil Winder Name Role Phone Bakari Medina MD Primary [...] Diagnosed Date SLE (systemic lupus erythema tosus) ([facility]24, [facility] V28) 05/07/2023 Overview (05/07/2023): Dr. Beltrán, Subacromial bursitis 05/07/2023 Overview (05/07/2023): R, injected by Dr Beltrán, 02/22 Lung nodule 06/20/2022 Mild persistent asthma without complication 04/0 09/2022 Chronic midline low back pain without sciatica 0 09/02/2021 Right hip pain 09/02/2021 Moderate persistent asthma without complication 09/02/2021 Raynaud's disease 02/21/2021 GI bleed 02/21/2021 Overview (05/07/2023): 01/25/2021 Transferred from [facility] to [facility]. Received multiple blood transfusions. Leukocytosis 02/21/2021 Overview [...] Care Team Description 09/07/2024 Telephone Adult Medicine [address] [phone] Bakari Medina MD Request For Order(s) 09/06/2024 Telephone Adult Medicine [address] [phone] Chichi Mccollum [place] Referral 08/29/2024 Telephone Adult Medicine [address] [phone] Bakari Medina MD Referral from Last 3 [...] TOTAL HYSTERECTOMY W/O BSO CHOLECYSTECTOMY 05/18 PROCEDURE: [facility] CHOLECYSTECTOMY UPPER GASTROINTESTINAL ENDOSCOPY 10/20/02 PROCEDURE: [facility] UPPER GI ENDOSCOPY PERFORMED TUBAL LIGATION PROCEDURE: HISTORICAL TUBAL LIGATION OTHER SURGICAL HISTORY 10/12/14 PROCEDURE: MYELOGRAM OF LOWER SPINE; COMMENT: L1-L5 [facility] COLONOSCOPY 12/14/2017 - 01/13/2018 Dr. Vo, unremarkable (5yr -hx polyp) COLONOSCOPY 03/16/2013 - 03/15/2014 Dr. Vo COLONOSCOPY 04/16/2008 - 05/13/2008 Dr. Vo, nl with bx consistent with lymphocytic colitis ESOPHAGOGASTRODUODENOSCOPY 12/14/2017 - 01/13/2018 Dr. Vo - unremarkable ESOPHAGOGASTRODUODENOSCOPY 01/14/2021 - 02/12/2021 [place] as inpt for bleed - unremarkble per notes Medical History Medical History Date Comments Systemic lupus erythematosus ([facility] V24, [facility] V28) 09/08/2005 DX:Systemic lupus erythemato martin ([facility]) Systemic lupus erythematosus ([facility] V24, [facility] V28) 09/08/2005 DX:Systemic lupus erythemato martin (H[facility]) [...] 09/2003 DX:Shingles SLE (systemic lupus erythema tosus) ([facility] V24, [facility] V28) DX:SLE (systemic lupus eryt hematosus) ([facility]); COMMENT: Dr. Beltrán, Subacromial bursitis DX:Subacrom ial bursitis; COMMENT: R, injected by Dr Beltrán, 02/22 Lupus panniculitis 09/08/2005 DX:Lupus pann iculitis GI bleed 02/21/2021 DX:GI bleed; COM MENT: 01/25/2021 Transferred from [facility] to [facility]. Received multiple blood transfusions. 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 DX:Polychondriti [...] EDT Office Visit [facility] - [address] [phone] Bakari Medina MD [address] [place] [address] 10/18/2024 4:00 PM EDT Appointment Radiology Department - [address] [phone] Health Maintenance Due Date Last Done Comments [...] LAB CHEMISTRY METHOD 09/08/2024 4:59 PM EDT [facility] ([facility] Blood Venous blood specimen / Unknown Venipuncture / Unknown 09/08/2024 11:39 AM EDT 09/08/2024 11:39 AM EDT us Bakari Medina MD LAB BLOOD ORDERABLES Final Result Performing Organization Address City/[facility]/ZIP Co de Phone Number [facility] [address] [place] [address], [place] [phone] * Free thyroxine with reflex to free triiodothyronine (09/08/2024 11:39 AM EDT) [facility] Free T4 1.10 0.70 - 1.80 ng/dL LAB CHEMISTRY METHOD 09/08/2024 6:23 PM EDT [facility] Blood Venous blood specimen / Unknown Venipuncture / Unknown 09/08/2024 11:39 AM EDT 09/08/2024 11:39 AM EDT Bakari Medina MD LAB BLOOD ORDERABLES Final Result Performing Organization Address [facility]/ZIP Co de Phone Number [facility] [address] [place] [address], [place] [phone] * (ABNORMAL) CBC auto differential (09/08/2024 11:39 AM EDT) [facility] WBC 4.9 4.8 - 10.8 K/mcL LAB HEMETOLOGY METHOD 09/08/2024 2:17 PM EDT [facility] RBC 4.30 3.80 - 4.80 M/[facility] LAB HEMETOLOGY METHOD 09/08/2024 2:17 PM EDT [facility] Hemoglobin 12.4 11.5 - 16.0 g/dL LAB HEMETOLOGY METHOD 09/08/2024 2:17 PM EDT [facility] Hematocrit 39.6 35.0 - 47.0 % LAB HEMETOLOGY METHOD 09/08/2024 2:17 PM EDT [facility] MCV 93.0 79.0 - 98.0 FL LAB HEMETOLOGY METHOD 09/08/2024 2:17 PM EDT [facility] MCH 29.1 27.0 - 32.0 pcg LAB HEMETOLOGY METHOD 09/08/2024 2:17 PM EDT [facility] MCHC 31.3(L) 32.0 - 37.0 g/dL LAB HEMETOLOGY METHOD 09/08/2024 2:17 PM [facility] RDW 12.7 11.0 - 15.0 % LAB HEMETOLOGY METHOD 09/08/2024 2:17 PM T [facility] Platelets 205 130 - 400 K/mcL LAB HEMETOLOGY METHOD 09/08/2024 2:17 PM [facility] MPV 10.9 7.0 - 11.0 FL LAB HEMETOLOGY METHOD 09/08/2024 2:17 PM [facility] NRBC 0.0 <1.0 % LAB HEMETOLOGY METHOD 09/08/2024 2:17 PM [facility] NRBC Absolute 0.00 <0.10 K/mcL LAB HEMETOLOGY METHOD 09/08/2024 2:17 PM [facility] Neutrophils Relative 62.0 % LAB HEMETOLOGY METHOD 09/08/2024 2:17 PM [facility] Lymphocytes Relative 28.8 % LAB HEMETOLOGY METHOD 09/08/2024 2:17 PM [facility] Monocytes Relative 5.1 % LAB HEMETOLOGY METHOD 09/08/2024 2:17 PM [facility] Eosinophils Relative 3.1 % LAB HEMETOLOGY METHOD 09/08/2024 2:17 PM [facility] Basophils Relative 0.8 % LAB HEMETOLOGY METHOD 09/08/2024 2:17 PM [facility] Immature Granulocytes Relative 0.2 % LAB HEMETOLOGY METHOD 09/08/2024 2:17 PM [facility] Neutrophils Absolute 3.04 1.50 - 7.00 K/mcL LAB HEMETOLOGY METHOD 09/08/2024 2:17 PM EDT [facility] Lymphocytes Absolute 1.41 1.00 - 5.00 K/mcL LAB HEMETOLOGY METHOD 09/08/2024 2:17 PM EDT [facility] Monocytes Absolute 0.25 0.20 - 1.00 K/mcL LAB HEMETOLOGY METHOD 09/08/2024 2:17 PM EDT [facility] Eosinophils Absolute 0.15 0.00 - 0.50 K/mcL LAB HEMETOLOGY METHOD 09/08/2024 2:17 PM EDT [facility] Basophils Absolute 0.04 0.00 - 0.20 K/mcL LAB HEMETOLOGY METHOD 09/08/2024 2:17 PM EDT [facility] Immature Granulocytes Absolute 0.01 0.00 - 0.03 K/mcL LAB HEMETOLOGY METHOD 09/08/2024 2:17 PM EDT [facility] Blood Venous blood specimen / Unknown Venipuncture / Unknown 09/08/2024 11:39 AM EDT 09/08/2024 11:39 AM EDT Bakari Medina MD LAB BLOOD ORDERABLES Final Result [facility] [address] [place] [address], * Triiodothyronine free (09/08/2024 11:39 AM EDT) T3, Free 262 230 - 420 pcg/dL LAB CHEMISTRY METHOD 09/08/2024 6:54 PM EDT [facility] Blood Venous blood specimen / Unknown Venipuncture / Unknown 09/08/2024 11:39 AM EDT 09/08/2024 11:39 AM EDT Bakari Medina MD LAB BLOOD ORDERABLES Final Result [facility] [address] [place] [address], [place] [phone] * Magnesium (09/08/2024 11:39 AM EDT) [facility] Magnesium 2.0 1.9 - 2.6 mg/dL LAB CHEMISTRY METHOD 09/08/2024 4:14 PM EDT [facility] Blood Venous blood specimen / Unknown Venipuncture / Unknown 09/08/2024 11:39 AM EDT 09/08/2024 11:39 AM EDT Bakari Medina MD LAB BLOOD ORDERABLES Final Result Performing Organization Address [facility]/ZIP Co de Phone Number [facility] [address] [place] [address], [place] [phone] * (ABNORMAL) Basic metabolic panel (09/08/2024 11:39 AM EDT) [facility] Sodium 141 133 - 145 mmol/L LAB CHEMISTRY METHOD 09/08/2024 4:14 PM EDT [facility] Potassium 3.7 3.5 - 5.5 mmol/L LAB CHEMISTRY METHOD 09/08/2024 4:14 PM EDT [facility] Chloride 107 96 - 110 mmol/L LAB CHEMISTRY METHOD 09/08/2024 4:14 PM EDT [facility] CO2 25 21 - 32 mmol/L LAB CHEMISTRY METHOD 09/08/2024 4:14 PM EDT [facility] Anion Gap 9 3 - 11 LAB CHEMISTRY METHOD 09/08/2024 4:14 PM [facility] Glucose 156(H) 70 - 100 mg/dL LAB CHEMISTRY METHOD 09/08/2024 4:14 PM EDT [facility] BUN 15 5 - 25 mg/dL LAB CHEMISTRY METHOD 09/08/2024 4:14 PM EDT [facility] Creatinine 1.12(H) 0.50 - 1.10 mg/dL LAB CHEMISTRY METHOD 09/08/2024 4:14 PM EDT [facility] eGFR 52(L) >=60 mL/min/1. 73m2 LAB CHEMISTRY METHOD 09/08/2024 4:14 PM EDT [facility] Comment:Calculation based on the Chronic Kidney Disease Epidemiology Collaboration (CKD-EPI) equation refit without adjustment for race. BUN/Creatinine Ratio 13.4 LAB CHEMISTRY METHOD 09/08/2024 4:14 PM EDT [facility] Calcium 8.8 8.5 - 10.5 mg/dL LAB CHEMISTRY METHOD 09/08/2024 4:14 PM EDT [facility] Blood Venous blood specimen / Unknown Venipuncture / Unknown 09/08/2024 11:39 AM EDT 09/08/2024 11:39 AM EDT Bakari Medina MD LAB BLOOD ORDERABLES Final Result [facility] [address] [place] [address], * External Colonoscopy Report (04/12/2024 5:08 PM [...] Res ult * Depression Screening (09/15/2023) Pathologist [facility] Depression Screening Abstracted Historical Provider HEALTH MAINTENANCE [...] should be classified as having osteoporosis. [facility] Department of Internal Medicine recommends using National [...] Barillas should beclassified as having osteoporosis. [facility] Department of Internal Medicine recommendsusing National Osteoporosis [...] l Result * Hepatitis C Screening (07/18/2013) [facility] Hepatitis C Screening Negative Historical Provider HEALTH MAINTENANCE Final Result from Last 3 Months or Most Recently Relevant to Health Maintenance Insurance [employer] Care Teams Coil Winder Relationship Specialty Start Date End Date Bakari Medina MD [address] [place] [address] PCP - General Internal Medicine 06/26/21
--- OUTSIDE RECORDS SUMMARY | 2024-09-26 14:07 | XMS_ITS ---
Author Name [facility] Organization Unknown Encounters Encounter Type Encounter Reason Primary Diagnosis Location Date Inpatient Gastrointestinal hemorrhage, unspecified [facility] 01/25/2021 Care Team Organization Name Specialty Phone Email Start Date End Da te [facility] 01/25/2021 11/02/2023 [facility] Viki Hobbs Primary Care 01/25/2021 01/25/2021
--- OUTSIDE RECORDS SUMMARY | 2024-09-26 14:07 | XMS_ITS | Clinical Summary ---
Author Organization [facility] Address [address] [place] [address] Care Team Providers Care Belt Changer Name Role Phone Viki Hobbs MD Primary [...] age to complete this topic Insurance , [place] [id number] [place] [address] MEDICARE [facility] MEDICARE Advance Directives * Full Code (Latest Code Status on File) Date Activated Date Inactivated Comments 01/25/2021 7:04 AM Care Teams Belt Changer Relationship Specialty Start Date End Date Viki Hobbs MD [address] [place] [address] PCP - General 01/25/21
== END 2024-09-26 13:06 | disposition home or self-care (01) ==
LOC: HO.XRAY 13:05
PROVIDERS: Visit Provider Internal Medicine Rheumatology
DX: R22.31 Localized swelling, mass and lump, right upper limb (principal)
CPT/HCPCS: 73130

== ENCOUNTER → 2024-09-26 13:09 | Outpatient (BNV) | payer MEDICARE, SELFPAY | PROVIDERS: Visit Provider Radiology Diagnostic Radiology | DX: M19.041 Primary osteoarthritis, right hand (principal) | CPT/HCPCS: 73130 ==

== ENCOUNTER 2024-11-15 15:36 | Outpatient (REF) | payer MEDICARE, SELFPAY ==
[2024-11-15 18:06] LABS: Free T4 (Free Thyroxine) 1.27 ng/dL (0.71-1.85); Thyroid Stimulating Hormone 1.21 uIU/mL (0.32-4.0)
== END 2024-11-15 15:37 | disposition home or self-care (01) ==
LOC: HO.LAB 15:36
PROVIDERS: Visit Provider Internal Medicine Endocrinology, Diabetes & Metabolism
DX: E03.9 Hypothyroidism, unspecified (principal); Z79.890 Hormone replacement therapy
CPT/HCPCS: 36415; 84439; 84443; 99212

== ENCOUNTER 2024-11-15 15:36 | Outpatient (AMB) | payer MEDICARE, SELFPAY ==
[2024-11-15 15:40] VITALS: BP 132/68; PULSE 77; O2SAT 97; BMI 26.7
--- NOTE | 2024-11-15 15:40 | MHC.OFFVIS ---
Vital Signs 11/15/24 15:40 Height 5 ft 3 in Weight 150 lb 12.739 oz BMI 26.7 BP 132/68 Blood Pressure Location Lt brachial Position Sitting Pulse 77 Pulse Source Pulse Oximeter Pulse Oximetry (%) 97 Oxygen Delivery Method Room Air Intake Visit Reasons: Hypothyroidism (Adult) Intake Note: Patient presents today for Hypothyroidism follow up. Patient states she was originally on Synthroid 75 mcg daily and PCP switched it to Levothyroxine 75 mcg QD and 2X 75 ug on Thursday . Patient states with this she has been having a lot of trouble with every day tasks. On 09/08 dose increased Employment Clerk Required: No Accompanied by: Self / Same As Patient Allergies vancomycin (VANCOMYCIN) Allergy (Severe, Verified 11/15/24 15:42) ANAPHYLAXIS amoxicillin (From AUGMENTIN) Allergy (Intermediate, Verified 11/15/24 15:42) DIARRHEA clavulanic acid (From AUGMENTIN) Allergy (Intermediate, Verified 11/15/24 15:42) DIARRHEA egg (EGG) Allergy (Intermediate, Verified 11/15/24 15:42) ABD PAIN morphine (MORPHINE) Allergy (Intermediate, Verified 11/15/24 15:42) VOMITING ofloxacin (From FLOXIN) Allergy (Mild, Verified 11/15/24 15:42) WORSENING EAR SX Sulfa (Sulfonamide Antibiotics) Allergy (Mild, Verified 11/15/24 15:42) Unknown sulfamethoxazole (From BACTRIM) Allergy (Mild, Verified 11/15/24 15:42) JITTERY trimethoprim (From BACTRIM) Allergy (Mild, Verified 11/15/24 15:42) JITTERY EGGS Allergy (Unknown, Uncoded 11/15/24 15:42) Unknown POLLEN MOLD Allergy (Unknown, Uncoded 11/15/24 15:42) Unknown Medication List - Last Reconciled 11/15/24 by Buddy Ortiz MD albuterol sulfate 90 mcg/actuation inhalation alendronate 70 mg PO QWEEK budesonide-formoterol 160-4.5 mcg/actuation (Symbicort) 1 inh inhalation BID diclofenac sodium 1% 2 grams topical QID PRN estradiol 0.01%(0.1mg/gram) vaginal lorazepam 0.5 mg PO DAILY meclizine 12.5 mg PO TID omeprazole 20 mg PO BID Synthroid (levothyroxine) 75 mcg PO DAILY NS tramadol 50 mg PO DAILY PRN trazodone 150 mg PO BEDTIME HPI Comments Details: 73 YO F with who is seen in consultation at the request of his PCP for Hyothyroidism.Saw Alba Fiore First diagnosed with Hypothyroidism 30 yrs ago with labs revealing elevated TSH . Currently using levothyroxine 75 ug . Family history of hypothyroidism: sister, son Biotin: No Labs: [facility], [facility] Medical History Hypothyroidism FH: cholecystectomy Cook's neuroma Osteoarthritis Raynauds disease Osteopenia Lymphocytic colitis Polychondritis Vipul's thyroiditis Lupus profundus Surgical History H/O shoulder surgery H/O: hysterectomy History of back surgery Family History Mother Lung cancer Father Heart problem Social History Alcohol intake: former Patient Tobacco Use Status: Never used Tobacco Physical Exam Vital Signs: Last Vital Signs Pulse 77 11/15/24 15:40 BP 132/68 11/15/24 15:40 Pulse Ox 97 11/15/24 15:40 Oxygen Delivery Method Room Air 11/15/24 15:40 BMI result Body Mass Index 26.7 Const Other: Thyroid gland is normal size weighs about 15 g . 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 She is currently being treated with 75 mcg levothyroxine branded Synthroid . She appears to be clinically euthyroid Plan is to check TSH and free T4 and adjust levothyroxine accordingly.. If TSH is elevated, would change dose to 88 mcg q.d. if TSH is suppressed, would have patient alternate 75 mcg with 88 mcg Orders: Orders Thyroid Stimulating Hormone Today E03.9 - Hypothyroidism, unspecified Free T4 (Free Thyroxine) Today E03.9 - Hypothyroidism, unspecified Coding Level of Care Code Est Pt Level 3 (18993) Diagnoses Hypothyroidism E03.9
--- OUTSIDE RECORDS SUMMARY | 2024-11-15 16:35 | XMS_ITS | Encounter Summary ---
Author Organization [facility] Address [address] [place] [address] Care Team Providers Care Beamer Hand Name Role Phone Viki Hobbs MD Primary Care Provider Un available Bakari Medina Primary Care Provider [phone] Encounter Details Date Type Department Care Team Description 10/16/2017 [facility] Medical Records [address] [place] [address] Isac Vo MD Social History Tobacco Use Types Packs/Day Years Used Date Smoking Tobacco: Former Smokeless Tobacco: Never Alcohol Use Standard Drinks/Week Comments Yes 0 (1 standard drink = 0.6 oz pur e alcohol) rare Sex Assigned at Date Recorded Not on file Job Start Date Occupation Industry Not on file Not on file Not on file documented as of this encounter Plan of Treatment Not on file documented as of this encounter Visit Diagnoses Not on filedocumented in this encounter Care Teams Beamer Hand Relationship Specialty Start Date End Date Viki Hobbs MD PCP - General 10/09/08 06/25/21 Bakari Medina [address] [place] [address] [id number] PCP - General Internal Medicine 06/26/21 documented as of this encounter
--- OUTSIDE RECORDS SUMMARY | 2024-11-15 16:35 | XMS_ITS | Encounter Summary ---
Author Organization [facility] Address [address] [place] [address] Care Team Providers Care Ranch Manager Name Role Phone Viki Hobbs MD Primary Care Provider Un available Bakari Medina Primary Care Provider [phone] Encounter Details Date Type Department Care Team Description 04/16/2017 Production Control Pegboard Clerk Report Medical Records [address] [place] [address] Lydia Georges MD Social History Tobacco Use Types Packs/Day [...] on filedocumented in this encounter Care Teams Ranch Manager Relationship Specialty Start Date End Date Viki Hobbs MD PCP - General 10/09/08 06/25/21 Bakari Medina [address] [place], [place] [phone] PCP - General Internal Medicine 06/26/21 documented as of this encounter
--- OUTSIDE RECORDS SUMMARY | 2024-11-15 16:35 | XMS_ITS | Encounter Summary ---
Author Organization [facility] Address [address] [place] [address] Care Team Providers Care Edge Beader Name Role Phone Bakari Medina Primary Care Provider [phone] Encounter Details Date Type Department Care Team Description 02/21/2023 Pt. Non Urgent Medical Question Adult Medicine [address] [address] Corazon Ventura PA-C [address] [place] [address] Social History Tobacco Use Types Packs/Day Years Used Date Smoking Tobacco: Former Smokeless Tobacco: Never Alcohol Use Standard Drinks/Week Comments Yes 0 (1 standard drink = 0.6 oz pur e alcohol) rare Sex Assigned at Date Recorded Not on file Job Start Date Occupation Industry Not on file Not on file Not on file documented as of this encounter Miscellaneous Notes * Telephone Encounter - Tatum Belcher - 02/23/2023 8:47 AM ESTFrom: Tatiana Barillas To: Ade Ventura Sent: 02/21/2023 5:43 PM EST Subject: Thryoid I take one 75 mg Synthroid everyday you said to increase it. What should I take? Thank you, Tatiana Barillas documented in this encounter Plan of Treatment Not on file documented as of this encounter Visit Diagnoses Not on filedocumented in this encounter Care Teams Edge Beader Relationship Specialty Start Date End Date Bakari Medina [address] [place] [address] PCP - General Internal Medicine 06/26/21 documented as of this encounter
--- OUTSIDE RECORDS SUMMARY | 2024-11-15 16:35 | XMS_ITS | Encounter Summary ---
Author Organization [facility] Address [address] [place] [address] Care Team Providers Care Restaurant Attendant Name Role Phone Bakari Medina Primary Care Provider [phone] Encounter Details Date Type Department Care Team Description 05/01/2023 Metal Turner Report Medical Records [address] [place] [address] Amilcar Kan MD Social History Tobacco Use Types Packs/Day [...] on filedocumented in this encounter Care Teams Restaurant Attendant Relationship Specialty Start Date End Date Bakari Medina [address] [place] [address] PCP - General Internal Medicine 06/26/21 documented as of this encounter
--- OUTSIDE RECORDS SUMMARY | 2024-11-15 16:35 | XMS_ITS | Encounter Summary ---
Author Organization [facility] Address [address] [place] [address] Care Team Providers Care Shift Engineer Name Role Phone Viki Hobbs MD Primary Care Provider Un available Bakari Medina Primary Care Provider [phone] Encounter Details Date Type Department Care Team Description 11/27/2016 [facility] Medical Records [address] [place] [address] Daquan Avalos Social History Tobacco Use Types Packs/Day Years [...] on filedocumented in this encounter Care Teams Shift Engineer Relationship Specialty Start Date End Date Viki Hobbs MD PCP - General 10/09/08 06/25/21 Bakari Medina [address] [place] [id number] PCP - General Internal Medicine 06/26/21 documented as of this encounter
--- OUTSIDE RECORDS SUMMARY | 2024-11-15 16:35 | XMS_ITS | Encounter Summary ---
Author Organization [facility] Address [address] [place] [address] Care Team Providers Care Business Process Architect Name Role Phone Viki Hobbs MD Primary Care Provider Un available Bakari Medina Primary Care Provider [phone] Reason for Referral * Radiology Services (Routine) - Authorized/Booked Specialty Diagnoses / Procedures Referred By Contac t Referred To Contact Radiology Diagnoses Mass of upper extremity, right Procedures MRI OF ARM/HAND W/WO CONTRAST MRI UP EXTREM OTH THAN JT WITH CONTRAST MAT Viki Hobbs MD [address] [place] [address] Mri/[address] [address] Referral ID Status Reason Start Date Expiration Date V isits Requested Visits Authorized [id number] Authorized/B ooked 11/26/2016 01/25/2017 1 1 Reason for Visit * Reason Onset Date Comments TEST RESULTS 11/26/2016 Encounter Details Date Type Department Care Team Description 11/26/2016 Telephone Medicine/Pediatrics - [address] [id number] Viki Hobbs MD TEST RESULTS Social History Tobacco Use Types Packs/Day Years [...] encounter Miscellaneous Notes * Telephone Encounter - Elsy Aparicio M.A. - 11/26/2016 3:[address] Hobbs - please sign new order. Spoke with pt and reviewed message from provider. Pt aware that we will ask for MRI request to be resubmitted for approval and will be contacted when able to schedule. She understands. Call to Melvi Carrion regarding Auth. She states that a new order must be placed and she will watch for order and submit with additional information. New order pended with additional info that plain film done * Telephone Encounter - Viki Hobbs MD - 11/26/2016 3:01 PM EDT Xray shows arthritis in wrist joint, some bone weakening (osteoporosis) of arm bones, but nothing to explain the soft tissue mass. We'll try again for the MRI. (Message nurse, please ask radiology to resubmit MRI request now that xray has been done) * Telephone Encounter - Elsy Aparicio M.A. - 11/26/2016 2:37 PM EDT Pt calling for result of film. Please advise. IMPRESSION: 1. Osseous demineralization with no acute, displaced fracture or dislocation. Degenerative changes at the wrist and first digit, as above. 2. No radiopaque foreign body or abnormal soft tissue calcification in the region of palpable concern * Telephone Encounter - Akilah Forrester - 11/26/2016 2:22 PM EDT Inform patient: ANY URGENT OR ABNORMAL RESULTS WIILL RESULT IN A CALL BACK TO THE PATIENT JAIDA. Type of test: :Xray Date test was performed: 11/25 Where was the test performed: [facility] Who ordered this test?: Dr Hobbs Is the doctor here today?: YES Can the message wait until the doctor returns?: NO IF PATIENT'S PCP IS NOT IN INSTRUCT PATIENT THAT THEY WILL RECEIVE A CALL BACK WHEN THE PCP IS IN THE OFFICE NEXT. documented in this encounter Plan of Treatment Not on file documented as of this encounter Visit Diagnoses Diagnosis Mass of upper extremity, right- Primary documented in this encounter Care Teams Business Process Architect Relationship Specialty Start Date End Date Viki Hobbs MD PCP - General 10/09/08 06/25/21 Bakari Medina [address] [place] [id number] PCP - General Internal Medicine 06/26/21 documented as of this encounter
--- OUTSIDE RECORDS SUMMARY | 2024-11-15 16:35 | XMS_ITS | Encounter Summary ---
Author Organization [facility] Address [address] [place] [address] Care Team Providers Care Territory Service Representative Name Role Phone Viki Hobbs MD Primary Care Provider Un available Bakari Medina Primary Care Provider [phone] Encounter Details Date Type Department Care Team Description 10/16/2017 Software Sales Representative Report Medical Records [address] [place] [address] Isac Vo MD Social History Tobacco Use [...] on filedocumented in this encounter Care Teams Territory Service Representative Relationship Specialty Start Date End Date Viki Hobbs MD PCP - General 10/09/08 06/25/21 Bakari Medina [address] [place] [address] [phone] PCP - General Internal Medicine 06/26/21 documented as of this encounter
--- OUTSIDE RECORDS SUMMARY | 2024-11-15 16:35 | XMS_ITS | Encounter Summary ---
Author Organization [facility] Address [address] [place] [address] Care Team Providers Care Indexer Name Role Phone Viki Hobbs MD Primary Care Provider Un available Bakari Medina Primary Care Provider [phone] Reason for Visit * Reason Onset Date Comments Infection 08/11/2012 Encounter Details Date Type Department Care Team Description 08/11/2012 Refill Medicine/Pediatrics - [address] [phone] Viki Hobbs MD Infection Social History Tobacco Use Types Packs/Day Years [...] encounter Miscellaneous Notes * Telephone Encounter - Christin Otero L.P.N. - 08/11/2012 4:08 PM EDT I need a pharm # in [place] * Telephone Encounter - Isma Vaughan - 08/11/2012 4:03 PM EDT Symptoms patient is presenting: pt called stating she thinks she has yeast infection, pt is in [place]. How long has patient had these symptoms?: 1 week PCP: Viki Hobbs MD [place] Plan[place] Product Type: MEDICARE [id number] documented in this encounter Plan of Treatment Not on file documented as of this encounter Visit Diagnoses Not on filedocumented in this encounter Care Teams Indexer Relationship Specialty Start Date End Date Viki Hobbs MD PCP - General 10/09/08 06/25/21 Bakari Medina [address] [place] [id number] PCP - General Internal Medicine 06/26/21 documented as of this encounter
--- OUTSIDE RECORDS SUMMARY | 2024-11-15 16:35 | XMS_ITS | Encounter Summary ---
Author Organization [facility] Address [address] [place] [address] Care Team Providers Care Permit Technician Name Role Phone Viki Hobbs MD Primary Care Provider Un available Bakari Medina Primary Care Provider [phone] Encounter Details Date Type Department Care Team Description 07/30/2017 Respiratory Care Technician Report Medical Records [address] [place] [address] Lydia Georges MD Social History Tobacco Use [...] on filedocumented in this encounter Care Teams Permit Technician Relationship Specialty Start Date End Date Viki Hobbs MD PCP - General 10/09/08 06/25/21 Bakari Medina [address] [place], [place] [phone] PCP - General Internal Medicine 06/26/21 documented as of this encounter
--- OUTSIDE RECORDS SUMMARY | 2024-11-15 16:35 | XMS_ITS | Encounter Summary ---
Author Organization [facility] Address [address] [place] [address] Care Team Providers Care Industrial Technology Teacher Name Role Phone Bakari Medina Primary Care Provider [phone] Reason for Visit * Reason Onset Date Comments Painful Urination 07/09/2022 Encounter Details Date Type Department Care Team Description 07/09/2022 Pt. Non Urgent Medical Question Adult Medicine [address] [address] Bakari Medina [address] [place] [phone] Acute cystitis without hematuria (Primary Dx) Social History Tobacco Use Types Packs/Day Years Used Date Smoking Tobacco: Former Smokeless Tobacco: Never Alcohol Use Standard Drinks/Week Comments Yes 0 (1 standard drink = 0.6 oz pur e alcohol) rare Sex Assigned at Date Recorded Not on file Job Start Date Occupation Industry Not on file Not on file Not on file COVID-19 Exposure Response Date Recorded In the last 10 days, have yo u been in contact with someone who was confirmed or suspected to have Coronavirus/COVID-19? No / Unsure 07/08/2022 11:02 AM EDT documented as of this encounter Miscellaneous Notes * Telephone Encounter - Elena Smalls M.A. - 07/10/2022 7:17 AM EDTFrom: Tatiana Barillas To: Ade Medina Sent: 07/09/2022 9:46 PM EDT Subject: Infection I have a urinary track infection it hurts to pee and I have to go all the time. I need something for it. Or can you order a test? Thank you, Tatiana Barillas documented in this encounter Plan of Treatment Not on file documented as of this encounter Results * URINE, CULTURE (07/10/2022 11:19 AM EDT) URINE CULTURE ESCHERICHIA COLI 07/14 7:58 AM EDT [facility] Comment: COLONY COUNT 50,000-99,000 URINE CULTURE STAPHYLOCOCCUS WARNERI 07/14/2022 7:58 AM EDT [facility] Comment: COLONY COUNT 10,000-49,000 Urine (Urine) 07/10/2022 11: 19 AM EDT 07/10/2022 11:20 AM EDT Narrative [facility] - 07/14/2022 7:58 AM EDT Release to patient->Immediate NORMAL SKIN/UROGENITAL RADHA PRESENT. Organism Antibiotic Method Susceptibility Escherichia coli TRIMETHOPRIM/SULFAMETHOXAZOLE <=20: Susceptible Escherichia coli Amoxicillin/Clavulanic Acid <=2: Susceptible Escherichia coli Ampicillin 4: Susceptible Escherichia coli Ampicillin/Sulbactam <=2: Susceptible Escherichia coli Cefazolin <=4: Susceptible Escherichia coli Ceftazidime <=1: Susceptible Escherichia coli Ceftriaxone <=1: Susceptible Escherichia coli CEFEPIME <=1: Susceptible Escherichia coli Ciprofloxacin <=0.25: Susceptible Escherichia coli ERTAPENEM <=0.5: Susceptible Escherichia coli Gentamicin <=1: Susceptible Escherichia coli LEVOFLOXACIN <=0.12: Susceptible Escherichia coli Imipenem <=0.25: Susceptible Escherichia coli Nitrofurantoin <=16: Susceptible Escherichia coli Tobramycin <=1: Susceptible Escherichia coli Piperacillin/Tazobactam <=4: Susceptible Staphylococcus warneri Oxacillin 0.5: Resistant Staphylococcus warneri Ciprofloxacin <=0.5: Susceptible Staphylococcus warneri Gentamicin <=0.5: Susceptible Staphylococcus warneri LEVOFLOXACIN 0.25: Susceptible Staphylococcus warneri Nitrofurantoin <=16: Susceptible Staphylococcus warneri PENICILLIN 0.06: Resistant Staphylococcus warneri Tetracycline <=1: Susceptible Staphylococcus warneri Vancomycin <=0.5: Susceptible Staphylococcus warneri Rifampin <=0.5: Susceptible Bakari Medina LAB [facility] * (ABNORMAL) CHG URNLS DIP STICK/TABLET REAGENT AUTO MICROSCOPY (07/10/2022 11:19 AM EDT) GLUCOSE, URINE (UA) NEGATIVE NEGATIVE mg/dL 07/10/2022 3:35 PM EDT [facility] BILIRUBIN URINE NEGATIVE NEGATIVE 07/10/2022 3:35 PM EDT [facility] KETONE, URINE NEGATIVE NEGATIVE mg/dL 07/10/2022 3:35 PM EDT [facility] [employer] SPECIFIC GRAVITY, URINE 1.013 1.003 - 1.030 07/10/2022 3:35 PM EDT [facility] BLOOD, URINE SMALL(A) NEGATIVE 07/10/2022 3:35 PM EDT [facility] PH, URINE 6.0 5.0 - 8.0 07/10/2022 3:35 PM EDT [facility] PROTEIN, URINE 30(A) <= TRACE mg/dl 07/10/2022 3:35 PM EDT [facility] UROBILINOGEN, URINE 0.2 0.2 - 1.0 E.U./dL 07/10/2022 3:35 PM EDT [facility] [employer] NITRITE,URINE NEGATIVE NEGATIVE 07/10/2022 3:35 PM EDT [facility] [employer] LEUKOCYTE ESTERASE, URINE LARGE(A) NEGATIVE 07/10/2022 3:35 PM EDT [facility] [employer] RBC-Urine 19(H) 0 - 4 /HPF 07/10/2022 3:40 PM EDT [facility] [employer] WBC-Urine 456(H) 0 - 4 /HPF 07/10/2022 3:40 PM EDT [facility] [employer] EPITH CELLS, URINE 4 0 - 60 /LPF 07/10/2022 3:40 PM EDT [facility] [employer] BACTERIA, URINE NEGATIVE NEGATIVE 07/10/2022 3:40 PM EDT [facility] [employer] 07/10/2022 11:1 9 AM EDT 07/10/2022 11:20 AM EDT Narrative [facility] - 07/10/2022 3:40 PM EDT Release to patient->Immediate Bakari Medina LAB [facility] documented in this encounter Visit Diagnoses Diagnosis Acute cystitis without hematuria- Primary Acute cystitis documented in this encounter Care Teams Industrial Technology Teacher Relationship Specialty Start Date End Date Bakari Medina [address] [place] [address] PCP - General Internal Medicine 06/26/21 documented as of this encounter
--- OUTSIDE RECORDS SUMMARY | 2024-11-15 16:35 | XMS_ITS | Encounter Summary ---
Author Organization [facility] Address [address] [place] [address] Care Team Providers Care Heating Operators Engineer Name Role Phone Bakari Medina Primary Care Provider [phone] Reason for Referral * EXTERNAL (Routine) - Authorized/Booked Specialty Diagnoses / Procedures Referred By Margaret crocker Referred To Contact Endocrinology Procedures REFERRAL TO ENDOCRINOLOGY Bakari Medina [address] [place] [address] Summer Robledo Referral ID Status Reason Start Date Expiration Date V isits Requested Visits Authorized [id number] Authorized/B ooked 08/13/2023 08/12/2024 1 1 Reason for Visit * Reason Onset Date Comments Provider Call Back 08/13/2023 Encounter Details Date Type Department Care Team Description 08/13/2023 Telephone Adult Medicine [address] [address] Bakari Medina [address] [place] [phone] Provider Call Back Social History Tobacco Use Types Packs/Day Years [...] encounter Miscellaneous Notes * Telephone Encounter - Laquita Vogel R.N. - 08/13/2023 12:01 PM EDT Pt has TSH of 1.24 and states she does not feel like herself unless her TSH is 2.5 She had an endocrine specialist in the past and they suggested she keep her TSH at 2.5 She has not been able to see endocrine since the office closed and she would like a referral to endocrine so she can discuss her symptoms and determine how she can keep her TSH at 2.5 * Telephone Encounter - Serge Burt - 08/13/2023 11:39 AM EDT The patient is calling in regards to Synthroid 75 MCG tablet which relate to the 08/11/2023 lab work(thyroid profile w/ TSH). She is concerned about the results of 1.24, states that even though 1.24 is ref range, she still does not feel better. She was wondering if there is anything she can do to increase her ref range to at least 2.5 with Synthroid 75 MCG tablet because she is in a better state than currently with ref range of 1.24. She states she would like to talk to nurse or provider about this matter. Please Advise. documented in this encounter Plan of Treatment Not on file documented as of this encounter Visit Diagnoses Not on filedocumented in this encounter Care Teams Heating Operators Engineer Relationship Specialty Start Date End Date Bakari Medina [address] [place] [address] PCP - General Internal Medicine 06/26/21 documented as of this encounter
--- OUTSIDE RECORDS SUMMARY | 2024-11-15 16:35 | XMS_ITS | Encounter Summary ---
Author Organization [facility] Address [address] [place] [address] Care Team Providers Care Well Tester Name Role Phone Viki Hobbs MD Primary Care Provider Un available Bakari Medina Primary Care Provider [phone] Encounter Details Date Type Department Care Team Description 2012 Environmental Field Team Member Report Medical Records [address] [place] [address] Mansi Beltrán MD Social History Tobacco Use Types Packs/Day [...] on filedocumented in this encounter Care Teams Well Tester Relationship Specialty Start Date End Date Viki Hobbs MD PCP - General 10/09/08 06/25/21 Bakari Medina [address] [place], [place] [phone] PCP - General Internal Medicine 06/26/21 documented as of this encounter
--- OUTSIDE RECORDS SUMMARY | 2024-11-15 16:35 | XMS_ITS | Encounter Summary ---
Author Organization [facility] Address [address] [place] [address] Care Team Providers Care Machinist Name Role Phone Bakari Medina Primary Care Provider [phone] Encounter Details Date Type Department Care Team Description 09/17/2023 Telephone Adult Medicine [address] [address] Bakari Medina [address] [place] [id number] Social History Tobacco Use Types Packs/Day Years [...] on filedocumented in this encounter Care Teams Machinist Relationship Specialty Start Date End Date Bakari Medina [address] [place] [id number] PCP - General Internal Medicine 06/26/21 documented as of this encounter
--- OUTSIDE RECORDS SUMMARY | 2024-11-15 16:35 | XMS_ITS | Encounter Summary ---
Author Organization [facility] [employer] [facility] Address [address] [place] [address] Care Team Providers Care Special Education Tutor Name Role Phone Viki Hobbs MD Primary Care Provider Un available Bakari Medina Primary Care Provider [phone] Encounter Details Date Type Department Care Team Description 05/14/2012 Business Doc Medical Records [address] [place] [address] Abstract, Provider Social History Tobacco Use Types Packs/Day Years [...] on filedocumented in this encounter Care Teams Special Education Tutor Relationship Specialty Start Date End Date Viki Hobbs MD PCP - General 10/09/08 06/25/21 Bakari Medina [address] [place], [place] [phone] PCP - General Internal Medicine 06/26/21 documented as of this encounter
--- OUTSIDE RECORDS SUMMARY | 2024-11-15 16:35 | XMS_ITS | Encounter Summary ---
Author Organization [facility] [email or web address] [facility] Address [address] [place] [address] Care Team Providers Care Mechanical Spreader Operator Name Role Phone Viki Hobbs MD Primary Care Provider Un available Bakari Medina Primary Care Provider [phone] Encounter Details Date Type Department Care Team Description 07/05/2012 Body Liner Report Medical Records [address] [place] [address] Alba Encarnacion MD Social History Tobacco Use Types Packs/Day [...] on filedocumented in this encounter Care Teams Mechanical Spreader Operator Relationship Specialty Start Date End Date Viki Hobbs MD PCP - General 10/09/08 06/25/21 Bakari Medina [address] [place] [address] [id number] PCP - General Internal Medicine 06/26/21 documented as of this encounter
--- OUTSIDE RECORDS SUMMARY | 2024-11-15 16:35 | XMS_ITS | Encounter Summary ---
Author Organization [facility] [employer] [facility] Address [address] [place] [address] Care Team Providers Care Travel Trailer Components Assembler Name Role Phone Viki Hobbs MD Primary Care Provider Un available Bakari Medina Primary Care Provider [phone] Encounter Details Date Type Department Care Team Description 11/27/2016 [facility] Medical Records [address] [place] [address] Yury Del Rosario MD Social History Tobacco Use Types Packs/Day [...] on filedocumented in this encounter Care Teams Travel Trailer Components Assembler Relationship Specialty Start Date End Date Viki Hobbs MD PCP - General 10/09/08 06/25/21 Bakari Medina [address] [place] [address] [id number] PCP - General Internal Medicine 06/26/21 documented as of this encounter
--- OUTSIDE RECORDS SUMMARY | 2024-11-15 16:35 | XMS_ITS | Encounter Summary ---
Author Organization [facility] [employer] [facility] Address [address] [place] [address] Care Team Providers Care Line Patroller Name Role Phone Viki Hobbs MD Primary Care Provider Un available Bakari Medina Primary Care Provider [phone] Encounter Details Date Type Department Care Team Description 07/24/2017 Tag Clerk Report Medical Records [address] [place] [address] Madisyn Garcia MD Social History Tobacco Use Types Packs/Day [...] on filedocumented in this encounter Care Teams Line Patroller Relationship Specialty Start Date End Date Viki Hobbs MD PCP - General 10/09/08 06/25/21 Bakari Medina [address] [place] [address] [phone] PCP - General Internal Medicine 06/26/21 documented as of this encounter
--- OUTSIDE RECORDS SUMMARY | 2024-11-15 16:35 | XMS_ITS | Encounter Summary ---
Author Organization [facility] [employer] [facility] Address [address] [place] [address] Care Team Providers Care Commercial Loan Analyst Name Role Phone Viki Hobbs MD Primary Care Provider Un available Bakari Medina Primary Care Provider [phone] Encounter Details Date Type Department Care Team Description 02/16/2013 [facility] Medical Records [address] [place] [address] Yury Del Rosario MD Social History Tobacco [...] on filedocumented in this encounter Care Teams Commercial Loan Analyst Relationship Specialty Start Date End Date Viki Hobsb MD PCP - General 10/09/08 06/25/21 Bakari Medina [address] [place] [address] [id number] PCP - General Internal Medicine 06/26/21 documented as of this encounter
--- OUTSIDE RECORDS SUMMARY | 2024-11-15 16:35 | XMS_ITS | Encounter Summary ---
Author Organization [facility] [employer] [facility] Address [address] [place] [address] Care Team Providers Care Content Developer Name Role Phone Viki Hobbs MD Primary Care Provider Un available Bakari Medina Primary Care Provider [phone] Encounter Details Date Type Department Care Team Description 12/31/2011 [employer] Portal Developer Report Medical Records [address] [place] [address] Tara Gottlieb [address] [place] [address] [id number] Social History Tobacco Use Types Packs/Day Years [...] on filedocumented in this encounter Care Teams Content Developer Relationship Specialty Start Date End Date Viki Hobbs MD PCP - General 10/09/08 06/25/21 Bakari Medina [address] [place], [place] [phone] PCP - General Internal Medicine 06/26/21 documented as of this encounter
--- OUTSIDE RECORDS SUMMARY | 2024-11-15 16:35 | XMS_ITS | Encounter Summary ---
Author Organization [employer] [facility] Address [address] [place] [address] Care Team Providers Care Field Manager Name Role Phone Viki Hobbs MD Primary Care Provider Un available Ismeal Graves MD Primary Care Provider Unavail able Bakari Medina Primary Care Provider [phone] Encounter Details Date Type Department Care Team Description 11/01/2004 Orders Only Gastroenterology - [address] [address] Ismael Cherry MD IRRITABLE BOWEL SYNDROME (Primary Dx) Social History Tobacco Use Types Packs/Day Years Used Date Smoking Tobacco: Never Assessed Sex Assigned at Date Recorded Not on file Job Start Date Occupation Industry Not on file Not on file Not on file documented as of this encounter Plan of Treatment Scheduled Orders Name Type Priority Associated Diagnoses Orde r Schedule VENIPUNCTURE Lab Routine Irritable Bowel Syndrome Ordered: 11/01/2004 documented as of this encounter Procedures Procedure Name Priority Date/Time Associated Diagnosis Comments TRANSGLUTAMINASE AB IGA Routine 11/02/19 05 8:44 AM EDT Irritable Bowel Syndrome documented in this encounter Results * TRANSGLUTAMINASE AB IGA (11/01/2004 8:44 AM EDT) tTG AB IGA <3 NOTE U/mL [facility] Comment: Reference ranges (tTG Antibody,IgA) in U/mL: Negative Less than 5 Equivocal 5 to 8 Positive Greater than 8 THIS TEST WAS PERFORMED AT: [facility] [address] [place], [place] 11/01/2004 8:44 AM EDT 11/01/2004 8:45 AM EDT Ismael Cherry MD LAB [facility] [employer] documented in this encounter Visit Diagnoses Diagnosis Irritable bowel syndrome- Primary documented in this encounter Care Teams Field Manager Relationship Specialty Start Date End Date Viki Hobbs MD PCP - General 10/09/08 06/25/21 Ismael Graves MD PCP - General 03/18/04 10/08/08 Bakari Medina [address] [place] [id number] PCP - General Internal Medicine 06/26/21 documented as of this encounter
--- OUTSIDE RECORDS SUMMARY | 2024-11-15 16:35 | XMS_ITS | Encounter Summary ---
Author Organization [employer] [employer] [facility] Address [address] [place] [address] Care Team Providers Care Patient Safety Sitter Name Role Phone Viki Hobbs MD Primary Care Provider Un available Bakari Medina Primary Care Provider [phone] Encounter Details Date Type Department Care Team Description 02/15/2018 Construction Project Administrator Report Medical Records [address] [place] [address] Lon Ware Social History Tobacco Use Types Packs/Day Years [...] on filedocumented in this encounter Care Teams Patient Safety Sitter Relationship Specialty Start Date End Date Viki Hobbs MD PCP - General 10/09/08 06/25/21 Bakari Medina [address] [place], [place] [phone] PCP - General Internal Medicine 06/26/21 documented as of this encounter
--- OUTSIDE RECORDS SUMMARY | 2024-11-15 16:35 | XMS_ITS | Clinical Summary ---
Author Organization [facility] Address [address] [place] [address] Phone Care Team Providers Care Sql Ssis Developer Name Role Phone Bakari Medina MD Primary [...] 01/25/2021 [place]ittery Vancomycin Anaphylaxis,Itching High 06/19/2016 Medications albuterol HFA (PROAIR HFA ; PROVENTIL HFA ; VENTOLIN HFA) 90 mcg/actuation inhaler Inhale 2 puffs by mouth. into the lungs every 4 hours as needed for Cough, Wheezing or Shortness of Breath 02/17/20 23 Active alendronate (FOSAMAX) 70 mg tablet Take 1 tablet (70 mg total) by mouth. ONCE A WEEK 04/21/19 24 Active budesonide-formot Kristopher (SYMBICORT) 160-4.5 mcg/actuation inhaler Inhale 2 puffs [...] 3 TIMES DAILY NEEDED FOR VERTIGO 04/09/19 19 Active MULTIVITAMIN ORAL Take by mouth. ONE QD Active inhalat.spacing dev,large mask spacer Use with inhaler as needed 09/23/19 20 Active magnesium oxide 500 mg magnesium tablet Take 1 tablet by mouth 1 (one) time each day. 02/05/20 24 Active estradioL (ESTRACE) 0.01 % (0.1 mg/gram) vaginal cream PLACE 1 GRAM VAGINALLY TWICE A WEEK 42.5 g 1 02/21/20 24 Active fluticasone propionate (FLONASE) 50 mcg/actuation nasal spray SPRAY 2 SPRAYS BY NASAL ROUTE DAILY 16 mL 1 06/01/19 25 Active traZODone (DESYREL) 100 mg tablet TAKE 1 TABLET BY MOUTH AT BEDTIME. (TAKE WITH 25MG FOR TOTAL NIGHTLY DOSE OF 125MG.) 90 tablet 1 08/02/19 25 Active levothyroxine (SYNTHROID, LEVOTHROID) 75 mcg tabletIndications :Acquired hypothyroidism Take 1 tablet Thursday through Thursday and 2 tablets on Sundays. 90 tablet 09/14/19 25 Active diclofenac (VOLTAREN) 1 % topical gel Apply 2 g topically 2 (two) times a day if needed (pain). 100 g 3 10/01/19 25 Active tiZANidine (ZANAFLEX) 4 mg capsule TAKE 1 CAPSULE BY MOUTH AT BEDTIME NEEDED FOR MUSCLE SPASMS. 30 capsule 3 10/11/19 25 Active traMADoL (ULTRAM) 50 mg tablet Take 1 tablet (50 mg total) by mouth 1 (one) time each day if needed for severe pain. Max Daily Amount: 50 mg 21 tablet 10/15/19 25 Active dicyclomine (BENTYL) 20 mg tablet Take 1 tablet (20 mg total) by mouth 4 (four) times a day (before meals and nightly). 360 tablet 1 10/19/19 25 Active traZODone (DESYREL) 50 mg tablet TAKE 1/2 TABLET (25 MG) BY MOUTH AT BEDTIME (WITH 100MG TOTAL 125MG) 45 tablet 1 11/03/19 25 Active omeprazole (PriLOSEC) [address] capsule TAKE 1 CAPSULE BY MOUTH TWICE A DAY 180 capsule 1 11/10/19 25 Active LORazepam (ATIVAN) 0.5 mg tablet Take 1 tablet (0.5 mg total) by mouth 1 (one) time each day if needed for anxiety. Max Daily Amount: 0.5 mg 28 tablet 11/16/19 25 Active acetaminophen (TYLENOL 8 HOUR) 650 mg 8 hr tablet TAKE 1 TABLET BY MOUTH EVERY 8 HOURS NEEDED FOR PAIN 90 tablet 1 11/16/19 25 Active acetaminophen (TYLENOL 8 HOUR) 650 mg 8 hr tablet Take 1 tablet (650 mg total) by mouth every 8 (eight) hours if needed. For pain 10/24/19 23 2024 Discontinued traZODone (DESYREL) 50 mg tablet TAKE 1/2 TABLET (25 MG) BY MOUTH AT BEDTIME (WITH 100MG TOTAL 125MG) 45 tablet 1 05/02/19 25 2024 Discontinued omeprazole (PriLOSEC) [address] capsule TAKE 1 CAPSULE BY MOUTH TWICE A DAY 180 capsule 1 05/04/19 25 2024 Discontinued LORazepam (ATIVAN) 0.5 mg tablet Take 1 tablet (0.5 mg total) by mouth 1 (one) time each day if needed for anxiety. Max Daily Amount: 0.5 mg 28 tablet 10/14/19 25 2024 Discontinued(R eorder) dicyclomine (BENTYL) 20 mg tablet Take 1 tablet (20 mg total) by mouth 4 (four) times a day (before meals and nightly). 2024 Discontinued(R eorder) Active Problems Problem Noted Date Diagnosed Date Stage 3a chronic kidney disease ([facility] V24, [facility] V28) 09/29/2024 SLE (systemic lupus erythema tosus) ([facility] V24, [facility] V28) 05/07/2023 Overview (05/07/2023): Dr. Beltrán, Subacromial bursitis 05/07/2023 Overview (05/07/2023): R, injected by Dr Beltrán, 02/22 Lung nodule 06/20/2022 Mild persistent asthma without complication 0 09/2022 Chronic midline low back pain without sciatica 0 09/02/2021 Right hip pain 09/02/2021 Moderate persistent asthma without complication 09/02/2021 Raynaud's disease 02/21/2021 GI bleed 02/21/2021 Overview (05/07/2023): 01/25/2021 Transferred from [facility] to [facility]. Received multiple blood transfusions. Leukocytosis 02/21/2021 [...] Encounters Date Type Department Care Team Description 11/15/2024 Telephone Adult [address] [phone] Bakari Medina MD 10/18/2024 3:29 PM EDT - 10/18/2024 11:59 PM EDT Hospital Encounter Radiology Department - [address] [phone] Encounter for screening mammogram for breast cancer Discharge Disposition: Home or Self Care 09/30/2024 2:00 PM EDT Office Visit Adult [address] [phone] Bakari Medina MD Chronic maxillary sinusitis (Primary Dx); Acquired hypothyroidism; Moderate persistent asthma without complication; Lung nodule; Stage 3a chronic kidney disease (CMS/HCC V24, CMS/HCC V28); Gastroesophageal reflux disease without esophagitis; Lymphocytic colitis; Chronic midline low back pain without sciatica; Insomnia, unspecified type; Anxiety disorder, unspecified type 09/07/2024 Telephone Adult Medicine [address] [phone] Bakari Medina MD 09/06/2024 Telephone Adult [address] [phone] Chichi Mccollum ID 08/29/2024 Telephone Adult [address] [phone] Bakari Medina MD from Last 3 Months Immunizations Name Administration [...] TOTAL HYSTERECTOMY W/O BSO CHOLECYSTECTOMY 05/18 PROCEDURE: NV CHOLECYSTECTOMY UPPER GASTROINTESTINAL ENDOSCOPY 10/20/02 PROCEDURE: NV UPPER GI ENDOSCOPY PERFORMED TUBAL LIGATION PROCEDURE: HISTORICAL TUBAL LIGATION OTHER SURGICAL HISTORY 10/12/14 PROCEDURE: MYELOGRAM OF LOWER SPINE; COMMENT: L1-L5 [facility] COLONOSCOPY 12/14/2017 - 01/13/2018 Dr. Vo, unremarkable (5yr -hx polyp) COLONOSCOPY 03/16/2013 - 03/15/2014 Dr. Vo COLONOSCOPY 04/16/2008 - 05/13/2008 Dr. Vo, nl with bx consistent with lymphocytic colitis ESOPHAGOGASTRODUODENOSCOPY 12/14/2017 - 01/13/2018 Dr. Vo - unremarkable ESOPHAGOGASTRODUODENOSCOPY 01/14/2021 - 02/12/2021 [place] as inpt for bleed - unremarkble per notes Medical History Medical History Date Comments Systemic lupus erythematosus ([facility]24, [facility] V28) 09/08/2005 DX:Systemic lupus erythemato martin ([facility]) Systemic lupus erythematosus ([facility], [facility] V28) 09/08/2005 DX:Systemic lupus erythemato martin ([facility]) Unspecified hypothyroidism 09/08/2005 DX:Un specified hypothyroidism Anxiety state, unspecified 09/09/2005 DX:An xiety state, unspecified Heartburn 09/09/2005 DX:Heartburn Lumbago 09/09/2005 DX:Lumbago Irritable bowel syndrome 01/26/2006 DX:Irri table bowel syndrome Lymphocytic colitis 05/17/2008 DX:Lymphocyt ic colitis Cataract DX:Cataract; COM MENT: bilat eyes Allergic rhinitis DX:Allergic rh initis Tubular adenoma 2004 DX:Tubular adeno ma Shingles 09/2003 DX:Shingles SLE (systemic lupus erythema tosus) ([facility]24, [facility] V28) DX:SLE (systemic lupus eryt hematosus) ([facility]); COMMENT: Dr. Beltrán, Subacromial bursitis DX:Subacrom ial bursitis; COMMENT: R, injected by Dr Beltrán, 02/22 Lupus panniculitis 09/08/2005 DX:Lupus pann iculitis GI bleed 02/21/2021 DX:GI bleed; COM MENT: 01/25/2021 Transferred from [facility] to [facility]. Received multiple blood transfusions. 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 [...] 02/03/2024 5: 24 PM EST Obstetrics History Para Term AB IAB SAB Ectopic Multiple Livin g Live Births 3 3 3 3 Date Outcome GA Total Labor Labor/2nd/3rd Weight Sex Type Anes PTL Carolina A1 A5 Name Clin Term Term Term Last Filed Vital Signs Vital Sign Reading Time Taken Comments Blood Pressure 118/72 09/30/2024 1:55 PM EDT Pulse 74 09/30/2024 1:55 PM EDT Temperature 35.9 C (96.7 F) 09/30/2024 1:55 PM EDT Respiratory Rate 16 09/30/2024 1:55 PM EDT Oxygen Saturation 97% 05/25/2024 1:27 PM EDT Inhaled Oxygen Concentration - - Weight 67.6 kg (149 lb) 09/30/2024 1:55 PM EDT Height 160 cm (5' 3 ) 09/30/2024 1:55 PM EDT Body Mass Index 26.39 09/30/2024 1:55 PM EDT Plan of Treatment Upcoming Encounters Date Type Department Care Team (Late st Contact Info) Description 02/14/2025 3:00 PM EST Office Visit Adult Medicine [address] [phone] Bakari Medina MD [address] [place] [address] Health Maintenance Due Date Last Done Comments Pneumococcal Vaccine: 50+ Years (1 of 2 - PCV) 1970 Zoster Vaccines (1 of 2) 2001 RSV Immunization Adult Patients (1 - Risk 60-74 years 1-dose series) 2011 Medicare Annual Wellness Visit 02/22/2022 Social Influencers of Health Screening 02/22/2022 Falls Risk Assessment 09/16/2023 09/15/2022 Depression Screening 03/16/2024 09/15/2023 COVID-19 Vaccine ( season) 2024 01/14/2021, 06/07/2020, 05/10/2020 Influenza Vaccine (#1) 2024 Breast Cancer Screening 10/18/2026 10/19/19, 09/30/2023, 09/30/2023, Additional history exists Osteoporosis Screening (Bone Density [...] Procedure Name Priority Date/Time Associated Diagnosis Comments MG MAMMO DIGITAL SCREENING W WILI BILAT Routine 10/18/2024 3:46 PM EDT Encounter for screening mammogram for breast cancer DRUG ABUSE SCREEN EXPANDED WITH REFLEX CONFIRMATION, URINE Routine 09/30/2024 2:42 PM EDT Chronic midline low back pain without sciatica Anxiety disorder, unspecified type TRIIODOTHYRONINE FREE Routine 09/08/2024 11:39 AM EDT [...] COLONOSCOPY REPORT Routine 04/12/2024 5:08 PM EST DEPRESSION SCREENING Routine 09/15/2023 LIPID PANEL Routine 02/16/2023 DXA BONE DENSITY STUDY 1+ SITS AXIAL SKEL Routine 12/09/2017 12:14 PM EDT Encounter for screening for osteoporosis HEPATITIS C SCREENING Routine 07/18/2013 from Last 3 Months or Most Recently Relevant to Health Maintenance Results * MG Mammo Digital Screening w Wili bilat (10/18/2024 3:46 PM EDT) Anatomical Region Laterality Modality Breast Bilateral Mammography 10/19/2024 2:32 PM EDT Impressions 10/19/2024 2:36 PM EDT Benign. BI-RADS CATEGORY: 2 - BENIGN RECOMMENDATION: Screening bilateral mammogram is recommended in 1 year. Mammo Location: [facility], [address] [place] [address], [id number], . -------- FINAL REPORT -------- Dictated By: Adore Mendez Dictated Date: 10/19/2024 14:32 ET Assigned Physician: Adore Mendez Reviewed and Electronically Signed By: Adore Mendez Signed Date: 10/19/2024 14:36 ET Workstation ID: [id number] Transcribed By: Self Edit Transcribed Date: 10/19/2024 14:32 ET Narrative 10/19/2024 2:36 PM EDT CLINICAL: 74 years old, Female, routine annual exam. COMPARISON: Mammograms dating back to 08/06/2020 with most recent of 09/30/2023. TECHNIQUE: Bilateral MLO and CC views were obtained digitally with 3-D mammogram (digital breast tomosynthesis). Computer-aided detection was utilized in evaluation of this exam (CAD). FINDINGS: There is no evidence of suspicious mass or architectural distortion. No worrisome calcifications are evident. There are benign focal asymmetries in each breast. There has been no significant change from prior exam(s). BREAST DENSITY: B - There are scattered areas of fibroglandular density. Procedure Note Adore Mendez MD - 10/19/2024 CLINICAL: 74 years old, Female, routine annual exam. COMPARISON: Mammograms dating back to 08/06/2020 with most recent of09/30/2023. TECHNIQUE: Bilateral MLO and CC views were obtained digitally with 3-Dmammogram (digital breast tomosynthesis). Computer-aided detection wasutilized in evaluation of this exam (CAD). FINDINGS: There is no evidence of suspicious mass or architectural distortion. Noworrisome calcifications are evident. There are benign focal asymmetriesin each breast. There has been no significant change from prior exam(s). BREAST DENSITY: B - There are scattered areas of fibroglandular density. IMPRESSION: Benign. BI-RADS CATEGORY: 2 - BENIGN RECOMMENDATION: Screening bilateral mammogram is recommended in 1 year. Mammo Location: [facility], [address] [place] [address], [phone], . -------- FINAL REPORT -------- Dictated By: Adore Mendez Dictated Date: 10/19/2024 14:32 ET Assigned Physician: Adore Mendez Reviewed and Electronically Signed By: Adore Mendez Signed Date: 10/19/2024 14:36 ET Workstation ID: [id number] Transcribed By: Self Edit Transcribed Date: 10/19/2024 14:32 ET us Bakari Medina MD IMG BI PROCEDURES Final Res ult * Drug abuse screen expanded with reflex confirmation, urine (09/30/2024 2:42 PM EDT) Amphetamine Screen, Ur Negative Negative LAB CHEMISTRY METHOD 09/30/2024 6:19 PM EDT [facility] Comment:Certain OTC medicati ons containing ephedrine, phenylephrine, pseudoephedrine and phenylpropanolamine can cause false positive results. Barbiturate Screen, Ur Negative Negative LAB CHEMISTRY METHOD 09/30/2024 6:19 PM EDT [facility] Benzodiazepine Screen, Ur Negative Negative LAB [facility]STRY [facility] Cocaine Screen, Ur Negative Negative LAB CHEMISTRY METHOD 09/30/2024 6:19 PM T [facility] Opiate Screen, Ur Negative Negative LAB CHEMISTRY METHOD 09/30/2024 6:19 PM [facility] Cannabinoid (THC) Screen, Ur Negative Negative LAB CHEMISTRY METHOD 09/30/2024 6:19 PM T [facility] Comment:Specimens from patie nts taking pantoprazole sodium (Protonix) have been shown to produce false positive results. Fentanyl, Ur Negative Negative LAB CHEMISTRY METHOD 09/30/2024 6:19 PM EDT [facility] Oxycodone Screen, Ur Negative Negative LAB CHEMISTRY METHOD 09/30/2024 6:19 PM [facility] Urine Urine specimen obtained by clean catch procedure / Unknown Non-blood Collection / Unknown 09/30/2024 2:42 PM EDT 09/30/2024 2:42 PM EDT Narrative [facility] - 09/30/2024 6:19 PM EDT Assay cutoffs: Amphetamines 1000 ng/mL Barbiturates 200 ng/mL Benzodiazepines 200 ng/mL Cocaine 300 ng/mL Fentanyl 1 ng/mL Opiates 300 ng/mL Oxycodone 100 ng/mL THC 50 ng/mL Semi-quantitative assay for screening purposes only. Unconfirmed screening result should not be used for non-medical purposes. *POSITIVE RESULTS ARE AUTOMATICALLY SENT FOR ALTERNATE METHOD CONFIRMATION* Bakari Medina MD LAB URINE ORDERABLES Final Result Performing Organization Address City/[facility]/ZIP Co de Phone Number [facility] [address] [place] [address], [place] [phone] * (ABNORMAL) Thyroid stimulating hormone with reflex to free t4 and free t3 (09/08/2024 11:39 AM EDT) TSH 5.88(H) 0.40 - 4.00 mcIU/mL LAB CHEMISTRY METHOD 09/08/2024 4:59 PM EDT [facility] Blood Venous blood specimen / Unknown Venipuncture / Unknown 09/08/2024 11:39 AM EDT 09/08/2024 11:39 AM EDT Bakari Medina MD LAB BLOOD ORDERABLES Final Result [facility] [address] [place] [address], [place] [phone] * Free thyroxine with reflex to free triiodothyronine (09/08/2024 11:39 AM EDT) Free T4 1.10 0.70 - 1.80 ng/dL LAB CHEMISTRY METHOD 09/08/2024 6:23 PM EDT [facility] Blood Venous blood specimen / Unknown Venipuncture / Unknown 09/08/2024 11:39 AM EDT 09/08/2024 11:39 AM EDT us Bakari Medina MD LAB BLOOD ORDERABLES Final Result [facility] [address] [place] [address], [place] [phone] * (ABNORMAL) CBC auto differential (09/08/2024 11:39 AM EDT) WBC 4.9 4.8 - 10.8 K/mcL LAB HEMETOLOGY METHOD 09/08/2024 2:17 PM EDT [facility] RBC 4.30 3.80 - 4.80 M/mcL LAB HEMETOLOGY METHOD 09/08/2024 2:17 PM EDT [facility] Hemoglobin 12.4 11.5 - 16.0 g/dL LAB HEMETOLOGY METHOD 09/08/2024 2:17 PM EDT [facility] Hematocrit 39.6 35.0 - 47.0 % LAB HEMETOLOGY METHOD 09/08/2024 2:17 PM EDT [facility] MCV 93.0 79.0 - 98.0 FL LAB HEMETOLOGY METHOD 09/08/2024 2:17 PM EDT [facility] MCH 29.1 27.0 - 32.0 pcg LAB HEMETOLOGY METHOD 09/08/2024 2:17 PM EDT [facility] MCHC 31.3(L) 32.0 - 37.0 g/dL LAB HEMETOLOGY METHOD 09/08/2024 2:17 PM EDT [facility] RDW 12.7 11.0 - 15.0 % LAB HEMETOLOGY METHOD 09/08/2024 2:17 PM EDT [facility] Platelets 205 130 - 400 K/mcL LAB HEMETOLOGY METHOD 09/08/2024 2:17 PM EDT [facility] MPV 10.9 7.0 - 11.0 FL LAB HEMETOLOGY METHOD 09/08[facility]24 [facility] NRBC 0.0 <1.0 % LAB HEMETOLOGY METHOD 09/08/2024 2:17 PM [facility] NRBC Absolute 0.00 <0.10 K/mcL LAB HEMETOLOGY METHOD 09/08/2024 2:17 PM [facility] Neutrophils Relative 62.0 % LAB HEMETOLOGY METHOD 09/08/2024 2:17 PM [facility] Lymphocytes Relative 28.8 % LAB HEMETOLOGY METHOD 09/08/2024 2:17 PM [facility] Monocytes Relative 5.1 % LAB HEMETOLOGY METHOD 09/08/2024 2:17 PM [facility] Eosinophils Relative 3.1 % LAB HEMETOLOGY METHOD 09/08/2024 2:17 PM [facility] Basophils Relative 0.8 % LAB HEMETOLOGY METHOD 09/08/2024 2:17 PM [facility] Immature Granulocytes Relative 0.2 % LAB HEMETOLOGY METHOD 09/08/2024 2:17 PM [facility] Neutrophils Absolute 3.04 1.50 - 7.00 K/mcL LAB HEMETOLOGY METHOD 09/08/2024 2:17 PM [facility] Lymphocytes Absolute 1.41 1.00 - 5.00 K/mcL LAB HEMETOLOGY METHOD 09/08/2024 2:17 PM [facility] Monocytes Absolute 0.25 0.20 - 1.00 K/mcL LAB HEMETOLOGY METHOD 09/08/2024 2:17 PM [facility] Eosinophils Absolute 0.15 0.00 - 0.50 K/mcL LAB HEMETOLOGY METHOD 09/08/2024 2:17 PM [facility] Basophils Absolute 0.04 0.00 - 0.20 K/[facility] HEMETOLOGY METHOD 09/08/2024 2:17 PM EDT [facility] Immature Granulocytes Absolute 0.01 0.00 - 0.03 K/[facility] HEMETOLOGY METHOD 09/08/2024 2:17 PM EDT [facility] Blood Venous blood specimen / Unknown Venipuncture / Unknown 09/08/2024 11:39 AM EDT 09/08/2024 11:39 AM EDT Bakari Medina MD LAB BLOOD ORDERABLES Final Result [facility] [address] [place] [address], [place] [phone] * Triiodothyronine free (09/08/2024 11:39 AM EDT) T3, Free 262 230 - 420 pcg/dL LAB CHEMISTRY METHOD 09/08/2024 6:54 PM EDT [facility] Blood Venous blood specimen / Unknown Venipuncture / Unknown 09/08/2024 11:39 AM EDT 09/08/2024 11:39 AM EDT Bakari Medina MD LAB BLOOD ORDERABLES Final Result [facility] [address] [place] [address], [place] [phone] * Magnesium (09/08/2024 11:39 AM EDT) Magnesium 2.0 1.9 - 2.6 mg/dL LAB CHEMISTRY METHOD 09/08/2024 4:14 PM EDT [facility] Blood Venous blood specimen / Unknown Venipuncture / Unknown 09/08/2024 11:39 AM EDT 09/08/2024 11:39 AM EDT us Bakari Medina MD LAB BLOOD ORDERABLES Final Result [facility] [address] [place] [address], [place] [phone] * (ABNORMAL) Basic metabolic panel (09/08/2024 11:39 AM EDT) Sodium 141 133 - 145 mmol/L LAB CHEMISTRY METHOD 09/08/2024 4:14 PM [facility] Potassium 3.7 3.5 - 5.5 mmol/L LAB CHEMISTRY METHOD 09/08/2024 4:14 PM [facility] Chloride 107 96 - 110 mmol/L LAB CHEMISTRY METHOD 09/08/2024 4:14 PM [facility] CO2 25 21 - 32 mmol/L LAB CHEMISTRY METHOD 09/08/2024 4:14 PM [facility] Anion Gap 9 3 - 11 LAB CHEMISTRY METHOD 09/08/2024 4:14 PM [facility] Glucose 156(H) 70 - 100 mg/dL LAB CHEMISTRY METHOD 09/08/2024 4:14 PM [facility] BUN 15 5 - 25 mg/dL LAB CHEMISTRY METHOD 09/08/2024 4:14 PM [facility] Creatinine 1.12(H) 0.50 - 1.10 mg/dL LAB CHEMISTRY METHOD 09/08/2024 4:14 PM [facility] eGFR 52(L) >=60 mL/min/1. 73m2 LAB CHEMISTRY METHOD 09/08/2024 4:14 PM [facility] Comment:Calculation based on the Chronic Kidney Disease Epidemiology Collaboration (CKD-EPI) equation refit without adjustment for race. BUN/Creatinine Ratio 13.4 LAB CHEMISTRY METHOD 09/08/2024 4:14 PM [facility] Calcium 8.8 8.5 - 10.5 mg/dL LAB CHEMISTRY METHOD 09/08/2024 4:14 PM EDT [facility] Blood Venous blood specimen / Unknown Venipuncture / Unknown 09/08/2024 11:39 AM EDT 09/08/2024 11:39 AM EDT Bakari Medina MD LAB BLOOD ORDERABLES Final Result [facility] [address] [place] [address], [place] [phone] * External Colonoscopy Report (04/12/2024 5:08 PM EST) Anatomical Region Laterality Modality Endoscopy Historical Provider GI~PROCEDURE ORDERABLES F inal Result * Depression Screening (09/15/2023) Pathologist [facility] Depression Screening Abstracted Historical [facility] Final Result * (ABNORMAL) Lipid panel (02/16/2023) Pathologist [facility] LDL/HDL Ratio 3 0 - 4 Triglycerides 126 0 - 150 mg/dL Cholesterol 210(A) 0 - 200 mg/dL HDL 64 >=40 mg/dL LDL Cholesterol 121(A) 0 - 100 mg/dL Blood Venous blood specimen / Unknown Result [facility] Historical Provider LAB BLOOD ORDERABLES Edit ed [...] should be classified as having osteoporosis. [facility] Department of Internal Medicine recommends [...] Barillas should beclassified as having osteoporosis. [facility] Department of Internal Medicine recommendsusing [...] l Result * Hepatitis C Screening (07/18/2013) Hepatitis C Screening Negative Historical Provider HEALTH MAINTENANCE Final Result from Last 3 Months or Most Recently Relevant to Health Maintenance Insurance [employer] Care Teams Sql Ssis Developer Relationship Specialty Start Date End Date Bakari Medina MD [address] [place] [address] PCP - General Internal Medicine 06/26/21
--- OUTSIDE RECORDS SUMMARY | 2024-11-15 16:35 | XMS_ITS | Encounter Summary ---
Author Organization [employer] [facility] Address [address] [place] [address] Care Team Providers Care Log Carrier Operator Name Role Phone Viki Hobbs MD Primary Care Provider Un available Bakari Medina Primary Care Provider [phone] Encounter Details Date Type Department Care Team Description 05/17/2013 Business Doc Medical Records [address] [place] [address] Abstract, Provider Social History Tobacco Use Types [...] on filedocumented in this encounter Care Teams Log Carrier Operator Relationship Specialty Start Date End Date Viki Hobbs MD PCP - General 10/09/08 06/25/21 Bkaari Medina [address] [place], [place] [id number] PCP - General Internal Medicine 06/26/21 documented as of this encounter
--- OUTSIDE RECORDS SUMMARY | 2024-11-15 16:35 | XMS_ITS | Encounter Summary ---
Author Organization [facility] Address [address] [place] [address] Care Team Providers Care Overhead Distribution Engineer Name Role Phone Viki Hobbs MD Primary Care Provider Un available Bakari Medina Primary Care Provider [phone] Encounter Details Date Type Department Care Team Description 06/24/2012 Refill Medicine/Pediatrics - [address] [address] Viki Hobbs MD Social History Tobacco Use Types Packs/Day [...] encounter Miscellaneous Notes * Telephone Encounter - Josiane Crocker Rn - 06/24/2012 2:35 PM EDT FYI Spoke to pt She was seen by Dr Del Rosario today, and received 6 shots, hoping to get the inflammation down. Script faxed to pharmacy. [facility] in [place], request * Telephone Encounter - Viki Hobbs MD - 06/24/2012 11:15 AM EDT Has she been going to PT? Does she need chiropractor or ortho referral? We can give a refill but itis not a good long term med so need to be sure she's doing something to address underlying cause of pain. Thanks. * Telephone Encounter - Melinda Jaimes M.A. - 06/24/2012 10:31 AM EDT Last OV 05/28/12 Pt has a CSC but this medication is not on her CSC and last time prescribed was 05/28/12 * Telephone Encounter - Isma Vaughan - 06/24/2012 10:17 AM EDT WHEN WAS THE PATIENT'S LAST APPOINTMENT IN ADULT MEDICINE? [id number] WHEN WAS THE LAST TIME THE PATIENT SAW THEIR PCP? [id number] Does patient have an upcoming appointment? no (THE MEDICATION REQUESTED IS ON THE MED LIST ABOVE) All of the medications requested were on the CURRENT MEDS list Did you check the Pharmacy information above?: NO Patient wants: 30 -day supply Patient would like script to be: PLACED IN PATIENT CERTIFIED ADDICTION COUNSELOR Is this a mail order prescription request ? NO Indicate how soon the patient needs the script: BY THE END OF THE DAY Patients current insurance carrier is: [place] Plan: MEDICARE-[employer] Product Type: MEDICARE [id number] documented in this encounter Plan of Treatment Not on file documented as of this encounter Visit Diagnoses Not on filedocumented in this encounter Care Teams Overhead Distribution Engineer Relationship Specialty Start Date End Date Viki Hobbs MD PCP - General 10/09/08 06/25/21 Bakari Medina [address] [place] [address] PCP - General Internal Medicine 06/26/21 documented as of this encounter
--- OUTSIDE RECORDS SUMMARY | 2024-11-15 16:35 | XMS_ITS | Encounter Summary ---
Author Organization [facility] Address [address] [place] [address] Care Team Providers Care Supervisor Bakery Sanitation Name Role Phone Viki Hobbs MD Primary Care Provider Un available Bakari Medina Primary Care Provider [phone] Encounter Details Date Type Department Care Team Description 05/14/2017 Truck Washer Report Medical Records [address] [place] [address] Lydia Georges MD Social History Tobacco Use [...] on filedocumented in this encounter Care Teams Supervisor Bakery Sanitation Relationship Specialty Start Date End Date Viki Hobbs MD PCP - General 10/09/08 06/25/21 Bakari Medina [address] [place], [place] [id number] PCP - General Internal Medicine 06/26/21 documented as of this encounter
--- OUTSIDE RECORDS SUMMARY | 2024-11-15 16:35 | XMS_ITS | Encounter Summary ---
Author Organization [facility] Address [address] [place] [address] Care Team Providers Care Educational Adviser Name Role Phone Viki Hobbs MD Primary Care Provider Un available Bakari Medina Primary Care Provider [phone] Encounter Details Date Type Department Care Team Description 02/12/2018 Soldering Technician Report Medical Records [address] [place] [address] Abstract, Provider Social History Tobacco Use Types [...] on filedocumented in this encounter Care Teams Educational Adviser Relationship Specialty Start Date End Date Viki Hobbs MD PCP - General 10/09/08 06/25/21 Bakari Medina [address] [place], [place] [id number] PCP - General Internal Medicine 06/26/21 documented as of this encounter
--- OUTSIDE RECORDS SUMMARY | 2024-11-15 16:35 | XMS_ITS | Encounter Summary ---
Author Organization [facility] Address [address] [place] [address] Care Team Providers Care Bander Name Role Phone Bakari Medina Primary Care Provider [phone] Encounter Details Date Type Department Care Team Description 05/12/2022 Toll Repairer Central Office Report Medical Records [address] [place] [address] Amilcar Kan MD Social History Tobacco Use [...] on filedocumented in this encounter Care Teams Bander Relationship Specialty Start Date End Date Bakari Medina [address] [place] [address] PCP - General Internal Medicine 06/26/21 documented as of this encounter
--- OUTSIDE RECORDS SUMMARY | 2024-11-15 16:36 | XMS_ITS | Encounter Summary ---
Author Organization [facility] Address [address] [place] [address] Care Team Providers Care Limo Driver Name Role Phone Bakari Medina Primary Care Provider [phone] Encounter Details Date Type Department Care Team Description 11/17/2023 Orders Only Orthopedics-[address] [address] Satish Calderon PA-C History of lumbar spinal fusion; Degenerative disc disease, lumbar; Lumbar radiculopathy; S/P lumbar fusion Social History Tobacco Use Types Packs/Day Years [...] on file documented as of this encounter Procedures Procedure Name Priority Date/Time Associated Diagnosis Comments MRI OF LUMBAR SPINE W/WO CONTRAST Routine 11/06/2023 History of lumbar spinal fusion Degenerative disc disease, lumbar Lumbar radiculopathy S/P lumbar fusion documented in this encounter Results * MRI OF LUMBAR SPINE W/WO CONTRAST (11/06/2023) Satish Calderon PA-C MRI [facility] [address] documented in this encounter Visit Diagnoses Diagnosis History of lumbar spinal fusion Degenerative disc disease, lumbar Degeneration of lumbar or lumbosacral intervertebral disc Lumbar radiculopathy Thoracic or lumbosacral neuritis or radiculitis, unspecified S/P lumbar fusion Arthrodesis status documented in this encounter Care Teams Limo Driver Relationship Specialty Start Date End Date Bakari Medina [address] [place] [address] PCP - General Internal Medicine 06/26/21 documented as of this encounter
--- OUTSIDE RECORDS SUMMARY | 2024-11-15 16:36 | XMS_ITS | Encounter Summary ---
Author Organization [facility] Address [address] [place] [address] Care Team Providers Care Sales Exhibitor Name Role Phone Viki Hobbs MD Primary Care Provider Un available Bakari Medina Primary Care Provider [phone] Encounter Details Date Type Department Care Team Description 04/06/2014 IT DATA ARCHITECT/[place] Report Medical Records [address] [place] [address] Abstract, Provider Social History Tobacco Use Types [...] on filedocumented in this encounter Care Teams Sales Exhibitor Relationship Specialty Start Date End Date Viki Hobbs MD PCP - General 10/09/08 06/25/21 Bakari Medina [address] [place], [place] [phone] PCP - General Internal Medicine 06/26/21 documented as of this encounter
--- OUTSIDE RECORDS SUMMARY | 2024-11-15 16:36 | XMS_ITS | Encounter Summary ---
Author Organization [facility] Address [address] [place] [address] Care Team Providers Care Title Assistant Name Role Phone Viki Hobbs MD Primary Care Provider Un available Bakari Medina Primary Care Provider [phone] Encounter Details Date Type Department Care Team Description 06/13/2010 Controlled Substance Plan Medical Records [address] [place] [address] Abstract, Provider Social History Tobacco Use Types Packs/Day Years Used Date Smoking Tobacco: Former Alcohol Use Standard Drinks/Week Comments Yes 0 [...] on filedocumented in this encounter Care Teams Title Assistant Relationship Specialty Start Date End Date Viki Hobbs MD PCP - General 10/09/08 06/25/21 Bakari Medina [address] [place], [place] [id number] PCP - General Internal Medicine 06/26/21 documented as of this encounter
--- OUTSIDE RECORDS SUMMARY | 2024-11-15 16:36 | XMS_ITS | Encounter Summary ---
Author Organization [facility] Address [address] [place] [address] Care Team Providers Care Substation Operator Chief Name Role Phone Viki Hobbs MD Primary Care Provider Un available Bakari Medina Primary Care Provider [phone] Encounter Details Date Type Department Care Team Description 04/21/2018 Pt. Non Urgent Medic al Question Medicine/Pediatrics - [address] [address] Jovanny Chandler MD Social History Tobacco Use Types Packs/Day Years Used Date Smoking Tobacco: Former Smokeless Tobacco: Never Alcohol Use Standard Drinks/Week Comments Yes 0 (1 standard drink = 0.6 oz pur e alcohol) rare Sex Assigned at Date Recorded Not on file Job Start Date Occupation Industry Not on file Not on file Not on file documented as of this encounter Progress Notes * Elsy Aparicio M.A. - 04/21/2018 12:48 PM ESTFrom: Tatiana Barillas To: Jovanny Chandler MD Sent: 04/21/2018 12:04 PM EST Subject: Rehabilitation I need a Prior Approval to go to [facility]. I have an appointment tomorrow afternoon. Can you please try and get the authorization. Thank you Tatiana Barillas documented in this encounter Plan of Treatment Not on file documented as of this encounter Visit Diagnoses Not on filedocumented in this encounter Care Teams Substation Operator Chief Relationship Specialty Start Date End Date Viki Hobbs MD PCP - General 10/09/08 06/25/21 Bakari Medina [address] [place] [address] PCP - General Internal Medicine 06/26/21 documented as of this encounter
--- OUTSIDE RECORDS SUMMARY | 2024-11-15 16:36 | XMS_ITS | Encounter Summary ---
Author Organization [facility] Address [address] [place] [address] Care Team Providers Care Curriculum Development Manager Name Role Phone Viki Hobbs MD Primary Care Provider Un available Bakari Medina Primary Care Provider [phone] Reason for Visit * Reason Onset Date Comments refill request 10/15/2010 Encounter Details Date Type Department Care Team Description 10/15/2010 Refill Medicine/Pediatrics - [address] [id number] Viki Hobbs MD refill request Social History Tobacco Use Types Packs/Day Years Used Date Smoking Tobacco: Former Alcohol Use Standard Drinks/Week Comments Yes 0 (1 standard drink = 0.6 oz pur e alcohol) rare Sex Assigned at Date Recorded Not on file Job Start Date Occupation Industry Not on file Not on file Not on file documented as of this encounter Miscellaneous Notes * Telephone Encounter - Nora Malagon PA-C - 10/15/2010 5:30 PM EDT #30 only sent, message is forwarded to Dr Hobbs for FYI, please see messages below * Telephone Encounter - Elsy Aparicio M.A. - 10/15/2010 1:17 PM EDT Spoke with pt. She was having a bit more stress recently. Is in midst of wedding planning and increased stress, so last RX did not last as long. She is out of med. Pt aware that request will be sent to covering provider to send to pharmacy * Telephone Encounter - Nora Malagon PA-C - 10/15/2010 1:07 PM EDT It appears her Ativan use has increased. This should wait until Dr Hines return. If she cannotwait I will give her enough to get thru till Dr hobbs returns from vacation for her review due to escalation in use in past month and also because she has not seen Dr Hobbs in 4 months thanks * Telephone Encounter - Marry Amin R.N. - 10/15/2010 12:18 PM EDT Last refill [id number] Component Value Date URBENZO NEGATIVE 06/11/10 URAMPHETAMIN NEGATIVE 06/11/10 URMARIJUANA NEGATIVE 06/11/10 UROPIATES NEGATIVE 06/11/10 URBARBITUATE NEGATIVE 06/11/10 URCOCAINE NEGATIVE 06/11/[address] * Telephone Encounter - Octavio Boles - 10/15/2010 12:04 PM EDT WHEN WAS THE PATIENT'S LAST APPOINTMENT IN ADULT MEDICINE? 06/11/10 WHEN WAS THE LAST TIME THE PATIENT SAW THEIR PCP? Same as above Does patient have an upcoming appointment? Yes 11/11/10 (THE MEDICATION REQUESTED IS ON THE MED LIST ABOVE) All of the medications requested were on the CURRENT MEDS list Did you check the Pharmacy information above?: YES Is this a mail order prescription request? NO Indicate how soon the patient needs the script: BY THE END OF THE DAY Patient would like script to be: FAXED TO PHARMACY Is the doctor here today?: NO Can the message wait until the doctor returns?: NO Patients current insurance carrier is: Payor: [facility]/[employer] FFS Plan: [employer] $25 BUCHANAN [id number] Product Type: PoyntO [id number] documented in this encounter Plan of Treatment Not on file documented as of this encounter Visit Diagnoses Not on filedocumented in this encounter Care Teams Curriculum Development Manager Relationship Specialty Start Date End Date Viki Hobbs MD PCP - General 10/09/08 06/25/21 Bakari Medina [address] [place] [address] PCP - General Internal Medicine 06/26/21 documented as of this encounter
--- OUTSIDE RECORDS SUMMARY | 2024-11-15 16:36 | XMS_ITS | Encounter Summary ---
Author Organization [facility] Address [address] [place] [address] Care Team Providers Care Switchboard Inspector Name Role Phone Viki Hobbs MD Primary Care Provider Un available Bakari Medina Primary Care Provider [phone] Encounter Details Date Type Department Care Team Description 05/14/2018 [facility] Medical Records [address] [place] [address] Abstract, Provider Social History Tobacco Use Types [...] on filedocumented in this encounter Care Teams Switchboard Inspector Relationship Specialty Start Date End Date Viki Hobbs MD PCP - General 10/09/08 06/25/21 Bakari Medina [address] [place] [id number] PCP - General Internal Medicine 06/26/21 documented as of this encounter
--- OUTSIDE RECORDS SUMMARY | 2024-11-15 16:36 | XMS_ITS | Encounter Summary ---
Author Organization [facility] Address [address] [place] [address] Care Team Providers Care Instructor Modeling Name Role Phone Viki Hobbs MD Primary Care Provider Un available Bakari Medina Primary Care Provider [phone] Encounter Details Date Type Department Care Team Description 06/07/2020 Orders Only Radiology - [address] [address] Radiology, Authorizing Social History Tobacco Use Types Packs/Day Years Used Date Smoking Tobacco: Former Smokeless Tobacco: Never Alcohol Use Standard Drinks/Week Comments Yes 0 (1 standard drink = 0.6 oz pur e alcohol) rare Sex Assigned at Date Recorded Not on file Job Start Date Occupation Industry Not on file Not on file Not on file COVID-19 Exposure Response Date Recorded In the last month, have you been in contact with someone who was confirmed or suspected to have Coronavirus / COVID-19? Unable to assess 05/22/2020 3:41 PM EST documented as of this encounter Plan of Treatment Not on file documented as of this encounter Visit Diagnoses Not on filedocumented in this encounter Care Teams Instructor Modeling Relationship Specialty Start Date End Date Viki Hobbs MD PCP - General 10/09/08 06/25/21 Bakari Medina [address] [place] [address] PCP - General Internal Medicine 06/26/21 documented as of this encounter
--- OUTSIDE RECORDS SUMMARY | 2024-11-15 16:36 | XMS_ITS | Encounter Summary ---
Author Organization [facility] Address [address] [place] [address] Care Team Providers Care Distribution Spec Name Role Phone Viki Hobbs MD Primary Care Provider Un available Bakari Medina Primary Care Provider [phone] Encounter Details Date Type Department Care Team Description 05/20/2010 Acute Care Registered Nurse Report Medical Records [address] [place] [address] Isac Vo MD Social History Tobacco Use [...] on filedocumented in this encounter Care Teams Distribution Spec Relationship Specialty Start Date End Date Viki Hobbs MD PCP - General 10/09/08 06/25/21 Bakari Medina [address] [place] [id number] PCP - General Internal Medicine 06/26/21 documented as of this encounter
--- OUTSIDE RECORDS SUMMARY | 2024-11-15 16:36 | XMS_ITS | Encounter Summary ---
Author Organization [facility] Address [address] [place] [address] Care Team Providers Care Hard Hat Diver Name Role Phone Viki Hobbs MD Primary Care Provider Un available Bakari Medina Primary Care Provider Reason for Referral * EXTERNAL (Urgent) - Authorized/Booked Specialty Diagnoses / Procedures Referred By Contac t Referred To Contact ORTHOPEDICS / Orthopedic Procedures REFERRAL TO ORTHOPEDICS Viki Hobbs MD [address] [place] [address] Yury Del Rosario MD [address] [place] [address] [address] [place] [address] Referral ID Status Reason Start Date Expiration Date V isits Requested Visits Authorized SEE NOTE Authorized/B ooked 10/14/2016 10/14/2017 1 1 Reason for Visit * Reason Onset Date Comments Check Out Cashier Feedback 10/14/2016 [place] Encounter Details Date Type Department Care Team Description 10/14/2016 Telephone Medicine/Pediatrics - [address] [phone] Viki Hobbs MD Check Out Cashier Feedback (Batsheva) Social History Tobacco Use Types Packs/Day Years [...] encounter Miscellaneous Notes * Telephone Encounter - Sandy Zapata - 10/14/2016 3:29 PM EDT Please review this patients new referral request. The referral has been pended. Please complete thefollowing: If approved> sign order If denied>please give instructions and route to your practice nursing pool. Practice nurse should inform referrals and the patient if denied. * Telephone Encounter - Sandy Zapata - 10/14/2016 1:12 PM EDT Per our records the patient has Medicare, if patient has [employer] please verify and update the insurance in order for referrals to process this request. Please forward back to referrals when complete * Telephone Encounter - Toña Perkins - 10/14/2016 11:22 AM EDT What insurance does the patient have today? [place] Effective 12/14/08: BCBS will not retro referral requests over 90 days. If request is for this please instruct patient to call the 800# on their insurance card to appeal. Do not submit a request. Referrals cannot be processed if the insurance is not accurate. If the insurance listed above in red is NO BILLING INFORMATION FOUND FOR THIS ENCOUTNER The patients correct insurance must be obtained and registered in [facility] or their referral can not be processed. Is this a retro request? NO. If yes for what date of service do you need the retro referral? N/A Who is calling to request this referral? Teresa If the caller is not the patient, what is their name? Dr. Ismael Del Rosario Ask the patient WHO referred them to this specialty: Patient self referred FIRST and LAST NAME of SPECIALIST PATIENT is seeing: Dr. Ismael Del Rosario What specialty is this? Orthopedic surgeon DIAGNOSIS Patient is being seen for (Not a body part or a procedure): degenerative disc disease Have you seen this SPECIALIST for this PROBLEM/DX before?YES If YES, when: since 2007 Have you checked REVIEW or the APPT DESK to see if this referral has already been done or has visits left? YES Is this visit:Follow Up Address of Specialist: [address] [place] [address] [address] [place], [place] Phone # of Specialist:[phone] Fax #: (if applicable):[phone] Does patient have an appointment scheduled?: YES Date of appointment- (including a retro-request): 10/16/16 Is this appointment related to: Not MVA, WC or Surgery related 6 visits please documented in this encounter Plan of Treatment Not on file documented as of this encounter Visit Diagnoses Not on filedocumented in this encounter Care Teams Hard Hat Diver Relationship Specialty Start Date End Date Viki Hobbs MD PCP - General 10/09/08 06/25/21 Bakari Medina [address] [place] [id number] PCP - General Internal Medicine 06/26/21 documented as of this encounter
--- OUTSIDE RECORDS SUMMARY | 2024-11-15 16:36 | XMS_ITS | Encounter Summary ---
Author Organization [facility] Address [address] [place] [address] Care Team Providers Care Silk Screen Frame Assembler Name Role Phone Bakari Medina Primary Care Provider [phone] Reason for Visit * Reason Onset Date Comments APPOINTMENT 07/23/2021 Reminder Encounter Details Date Type Department Care Team Description 07/23/2021 Telephone Pulmonology - [place] [address] [address] Debbie Murguia MD [address] [address] APPOINTMENT (Reminder ) Social History Tobacco Use Types Packs/Day Years [...] suspected to have Coronavirus/COVID-19? No / Unsure 07/26/2021 2:29 PM EDT documented as of this encounter Miscellaneous Notes * Telephone Encounter - Mariam Thakkar - 07/23/2021 11:58 AM EDT No answer line was busy unable to leave message to remind patient of upcoming appoitment with provider tomorrow. If patient calls back please let them know their appoitment is tomorrow 07/24/[address] Murguia. documented in this encounter Plan of Treatment Not on file documented as of this encounter Visit Diagnoses Not on filedocumented in this encounter Care Teams Silk Screen Frame Assembler Relationship Specialty Start Date End Date Bakari Medina [address] [place] [id number] PCP - General Internal Medicine 06/26/21 documented as of this encounter
--- OUTSIDE RECORDS SUMMARY | 2024-11-15 16:36 | XMS_ITS | Encounter Summary ---
Author Organization [facility] Address [address] [place] [phone] Phone Care Team Providers Care Finishing Inspector Name Role Phone Bakari Medina MD Primary Care Provider Reason for Visit * Reason Onset Date Comments Referral 09/28/2024 Encounter Details Date Type Department Care Team ([facility] st Contact Info) Description 09/28/2024 Telephone [facility] [address] [place] [address] [email or web address] Referral Social History Tobacco Use Types Packs/Day Years Used Date Smoking Tobacco: Former Smokeless Tobacco: Never Education Answer Date Recorded Are you interested in more education? Not on ryan e 07/11/2022 Are you concerned about learning? Not on file 07/11/2022 No 07/11/2022 No 07/11/2022 Digital Access Answer Date Recorded No 08/06/2022 No 08/06/2022 Reliable internet access at home? Not on file 08/06/2022 Device with a working camera? Not on file Comments Unknown Sex and Gender Information Value Date Recorded Sex Assigned at Not on file Legal Sex Female 10:00 PM EDT Gender Identity Not on file Sexual Orientation Not on file documented as of this encounter Progress Notes * Flower Chamorro - 09/28/2024 1:26 PM EDT [facility] PEN Top Smart Phrases: Locating Referral Fax Yoav, We are notifying you that the patient called to schedule a new patient appointment. The referral is not listed on file or in the media tab. The patient has informed us that the referral was faxed out. Please review the SFA and contact the patient with the referral determination if it is on file or not. Thank you If caller not the patient: Name: Relationship: Referral Order Details provided by caller Diagnosis: N/A Reason/Specify: N/A Referred To Name:N/A Referral Fax Out Dates: N/A Additional information: N/A Agent Action: > Route Encounter to FD Pool > Reason for Call: Referral > Comment: Call Back & Locate Referral in SFA Needed > Reiterate Scripting: Provide our referral not on file scripting Required Scripting: If the referral is not on file: Yoav, thank you for calling. I see that you'vementioned your provider faxed over a referral, but we have not yet received it on our end. Sometimes there can be a delay in processing or receiving faxes. Can you please confirm the date it was sent and the fax number that was used? Provide the caller with the office fax number. I will be happy to send a message over to the office for them to review their records and let you know if they've received it. documented in this encounter Plan of Treatment Upcoming Encounters Date Type Department Care Team ([facility] st Contact Info) Description 04/11/2025 10:00 AM EST Office Visit [facility] [address] [place] [address] Alba Encarnacion MD [address] [place] [id number] documented as of this encounter Visit Diagnoses Not on filedocumented in this encounter Care Teams Finishing Inspector Relationship Specialty Start Date End Date Bakari Medina MD [address] [place] [address] PCP - General Internal Medicine 02/03/23 documented as of this encounter Additional Source Comments The information contained in this document represents components of the legal health record. It is not the complete legal health record.[facility]
--- OUTSIDE RECORDS SUMMARY | 2024-11-15 16:36 | XMS_ITS | Encounter Summary ---
Author Organization [facility] [employer] [facility] Address [address] [place] [address] Care Team Providers Care Heating Fixture Tender Name Role Phone Viki Hobbs MD Primary Care Provider Un available Bakari Medina Primary Care Provider [phone] Encounter Details Date Type Department Care Team Description 11/23/2013 Nuclear Medicine Chief Technologist Report Medical Records [address] [place] [address] Isac Vo MD Social History Tobacco Use [...] filedocumented in this encounter Care Teams Heating Fixture Tender Relationship Specialty Start Date End Date Viki Hobbs MD PCP - General 10/09/08 06/25/21 Bakari Medina [address] [place] [address] [id number] PCP - General Internal Medicine 06/26/21 documented as of this encounter
--- OUTSIDE RECORDS SUMMARY | 2024-11-15 16:36 | XMS_ITS | Encounter Summary ---
Author Organization [facility] [employer] [facility] Address [address] [place] [address] Care Team Providers Care Hay Rake Operator Name Role Phone Viki Hobbs MD Primary Care Provider Un available Bakari Medina Primary Care Provider [phone] Encounter Details Date Type Department Care Team Description 11/08/2013 Internet Database Specialist Report Medical Records [address] [place] [address] Mansi Beltrán MD Social History Tobacco Use [...] on filedocumented in this encounter Care Teams Hay Rake Operator Relationship Specialty Start Date End Date Viki Hobbs MD PCP - General 10/09/08 06/25/21 Bakari Medina [address], [place] [phone] PCP - General Internal Medicine 06/26/21 documented as of this encounter
--- OUTSIDE RECORDS SUMMARY | 2024-11-15 16:36 | XMS_ITS | Encounter Summary ---
Author Organization [facility] [employer] [facility] Address [address] [place] [address] Care Team Providers Care Energy Broker Name Role Phone Viki Hobbs MD Primary Care Provider Un available Bakari Medina Primary Care Provider [phone] Encounter Details Date Type Department Care Team Description 07/30/2016 Mechanical Estimator Report Medical Records [address] [place] [address] Alba Encarnacion MD Social History Tobacco Use [...] on filedocumented in this encounter Care Teams Energy Broker Relationship Specialty Start Date End Date Viki Hobbs MD PCP - General 10/09/08 06/25/21 Bakari Medina [address] [place] [address] [id number] PCP - General Internal Medicine 06/26/21 documented as of this encounter
--- OUTSIDE RECORDS SUMMARY | 2024-11-15 16:36 | XMS_ITS | Encounter Summary ---
Author Organization [facility] [employer] [facility] Address [address] [place] [address] Care Team Providers Care Affiliate Marketing Manager Name Role Phone Viki Hobbs MD Primary Care Provider Un available Bakari Medina Primary Care Provider [phone] Encounter Details Date Type Department Care Team Description 05/10/2019 Communication Analyst Report Medical Records [address] [place] [address] Willa Salvador PA-C Social History Tobacco Use Types Packs/Day Years [...] on filedocumented in this encounter Care Teams Affiliate Marketing Manager Relationship Specialty Start Date End Date Viki Hobbs MD PCP - General 10/09/08 06/25/21 Bakari Medina [address] [place] [address] [id number] PCP - General Internal Medicine 06/26/21 documented as of this encounter
--- OUTSIDE RECORDS SUMMARY | 2024-11-15 16:36 | XMS_ITS | Encounter Summary ---
Author Organization [facility] [employer] [facility] Address [address] [place] [address] Care Team Providers Care Advertising Teacher Name Role Phone Viki Hobbs MD Primary Care Provider Un available Bakari Medina Primary Care Provider Encounter Details Date Type Department Care Team Description 06/08/2016 Hospital Medical Records [address] [place] [address] Kari Schroeder NP Social History Tobacco Use Types Packs/Day Years [...] on filedocumented in this encounter Care Teams Advertising Teacher Relationship Specialty Start Date End Date Viki Hobbs MD PCP - General 10/09/08 06/25/21 Bakari Medina [address] [place], [place] [phone] PCP - General Internal Medicine 06/26/21 documented as of this encounter
--- OUTSIDE RECORDS SUMMARY | 2024-11-15 16:36 | XMS_ITS | Encounter Summary ---
Author Organization [facility] Address [address] [place] [address] Care Team Providers Care Social Scientist Name Role Phone Viki Hobbs MD Primary Care Provider Un available Bakari Medina Primary Care Provider [phone] Encounter Details Date Type Department Care Team Description 01/11/2014 Pt. Non Urgent Medic al Question Medicine/Pediatrics - [address] [address] iVki Hobbs MD Social History Tobacco Use Types [...] as of this encounter Progress Notes * Josiane Crocker Rn - 01/12/2014 8:46 AM EDTFrom: Tatiana Barillas To: Viki Hobbs MD Sent: 01/11/2014 7:49 PM EDT Subject: Medication check I have an appointment on Jan 16 for my pre opt visit and I want to know if they can do the medication check while I am there. I go in for surgery on Feb 14 and I have things to do to get ready for surgery. My appointment for this is on Feb 13.. Thank you, Tatiana Barillas documented in this encounter Plan of Treatment Not on file documented as of this encounter Visit Diagnoses Not on filedocumented in this encounter Care Teams Social Scientist Relationship Specialty Start Date End Date Viki Hobbs MD PCP - General 10/09/08 06/25/21 Bakari Medina [address] [place] [address] PCP - General Internal Medicine 06/26/21 documented as of this encounter
--- OUTSIDE RECORDS SUMMARY | 2024-11-15 16:36 | XMS_ITS | Encounter Summary ---
Author Organization [facility] [employer] [facility] Address [address] [place] [address] Care Team Providers Care Pest Control Operator Name Role Phone Viki Hobbs MD Primary Care Provider Un available Bakari Medina Primary Care Provider [phone] Encounter Details Date Type Department Care Team Description 01/28/2021 [facility] Medical Records [address] [place] [address] Abstract, Provider Social History Tobacco Use Types [...] on filedocumented in this encounter Care Teams Pest Control Operator Relationship Specialty Start Date End Date Viki Hobbs MD PCP - General 10/09/08 06/25/21 Bakari Medina [address] [place] [address] [id number] PCP - General Internal Medicine 06/26/21 documented as of this encounter
--- OUTSIDE RECORDS SUMMARY | 2024-11-15 16:36 | XMS_ITS | Encounter Summary ---
Author Organization [facility] [employer] [facility] Address [address] [place] [address] Care Team Providers Care Furnace Converter Name Role Phone Viki Hobbs MD Primary Care Provider Un available Bakari Medina Primary Care Provider [phone] Encounter Details Date Type Department Care Team Description 08/01/2014 Engineer Station Mainline Report Medical Records [address] [place] [address] Alba Encarnacion MD Social History Tobacco Use [...] on filedocumented in this encounter Care Teams Furnace Converter Relationship Specialty Start Date End Date Viki Hobbs MD PCP - General 10/09/08 06/25/21 Bakari Medina [address] [place] [address] [phone] PCP - General Internal Medicine 06/26/21 documented as of this encounter
--- OUTSIDE RECORDS SUMMARY | 2024-11-15 16:36 | XMS_ITS | Encounter Summary ---
Author Organization [facility] [employer] [facility] Address [address] [place] [address] Care Team Providers Care Armored Machine Operator Name Role Phone Viki Hobbs MD Primary Care Provider Un available Bakari Medina Primary Care Provider [phone] Encounter Details Date Type Department Care Team Description 11/03/2018 [facility] Controlled Substance Contract Medical Records [address] [place] [address] Abstract, Provider Social History Tobacco Use Types [...] on filedocumented in this encounter Care Teams Armored Machine Operator Relationship Specialty Start Date End Date Viki Hobbs MD PCP - General 10/09/08 06/25/21 Bakari Medina [address] [place], [place] [phone] PCP - General Internal Medicine 06/26/21 documented as of this encounter
--- OUTSIDE RECORDS SUMMARY | 2024-11-15 16:36 | XMS_ITS | Encounter Summary ---
Author Organization [employer] [facility] Address [address] [place] [address] Care Team Providers Care Correctional Lieutenant Name Role Phone Viki Hobbs MD Primary Care Provider Un available Bakari Medina Primary Care Provider [phone] Encounter Details Date Type Department Care Team Description 05/09/2016 Orders Only Medicine/Pediatrics - [address] [address] Sam Schultz PA-C Social History Tobacco Use Types Packs/Day [...] on filedocumented in this encounter Care Teams Correctional Lieutenant Relationship Specialty Start Date End Date Viki Hobbs MD PCP - General 10/09/08 06/25/21 Bakari Medina [address] [place] [id number] PCP - General Internal Medicine 06/26/21 documented as of this encounter
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
--- OUTSIDE RECORDS SUMMARY | 2024-11-15 16:36 | XMS_ITS | Encounter Summary ---
Author Organization [facility] [employer] [facility] Address [address] [place] [address] Care Team Providers Care Vp Treasurer Name Role Phone Viki Hobbs MD Primary Care Provider Un available Bakari Medina Primary Care Provider [phone] Encounter Details Date Type Department Care Team Description 06/28/2015 [facility] Medical Records [address] [place] [address] Yury Del Rosario MD Social History Tobacco [...] on filedocumented in this encounter Care Teams Vp Treasurer Relationship Specialty Start Date End Date Viki Hobbs MD PCP - General 10/09/08 06/25/21 Bakari Medina [address] [place] [address] [phone] PCP - General Internal Medicine 06/26/21 documented as of this encounter
--- OUTSIDE RECORDS SUMMARY | 2024-11-15 16:36 | XMS_ITS | Encounter Summary ---
Author Organization [facility] [employer] [facility] Address [address] [place] [address] Care Team Providers Care Dispatcher Maintenance Service Name Role Phone Viki Hobbs MD Primary Care Provider Un available Bakari Medina Primary Care Provider [phone] Encounter Details Date Type Department Care Team Description 03/28/2010 Cycle Analyst Report Medical Records [address] [place] [address] Alba Encarnacion MD Social History Tobacco Use [...] on filedocumented in this encounter Care Teams Dispatcher Maintenance Service Relationship Specialty Start Date End Date Viki Hobbs MD PCP - General 10/09/08 06/25/21 Bakari Medina [address] [place] [address] PCP - General Internal Medicine 06/26/21 documented as of this encounter
--- OUTSIDE RECORDS SUMMARY | 2024-11-15 16:36 | XMS_ITS | Encounter Summary ---
Author Organization [facility] Address [address] [place] [address] Care Team Providers Care Agricultural Mechanic Name Role Phone Bakari Medina Primary Care Provider [phone] Reason for Visit * Reason Comments E-prescribe Rx Request Encounter Details Date Type Department Care Team Description 11/22/2021 Refill Medicine/Pediatrics - [address] [address] Viki Hobbs MD E-prescribe Rx Request Social History Tobacco Use Types Packs/Day Years [...] encounter Miscellaneous Notes * Telephone Encounter - Tammie Soto M.A. - 11/22/2021 12:55 PM EDT Lab Results Component Value Date NA 141 09/02/2021 K 4.8 09/02/2021 CO2 28 09/02/2021 CL 106 09/02/2021 BUN 12 09/02/2021 CREAT 0.92 09/02/2021 GLU 98 09/02/2021 CA 9.3 09/02/2021 GFR 60 09/02/2021 Pending appt with pcp 11.04.06 * Telephone Encounter - Skyla Carrillo - 11/22/2021 12:49 PM EDT Patient would like script to be: E-PRESCRIBED/FAXED TO PHARMACY ?? WHEN WAS THE PATIENT'S LAST APPOINTMENT IN ADULT MEDICINE? 09/02/21 ?? WHEN WAS THE LAST TIME THE PATIENT SAW THEIR PCP? Same as above ?? Does patient have an upcoming appointment? Yes 01/14/22 ?? (THE MEDICATION REQUESTED IS ON THE MED LIST ABOVE) All of the medications requested were on the CURRENT MEDS list ?? Did you check the Pharmacy information above?: YES ?? Patient wants: 90 -day supply ?? Is this a mail order prescription request ? NO ?? If the refill is from a FAXED refill request what is the RX # listed on the fax? N/A ?? Patients current insurance carrier is: Payor: [employer] / Plan: HMO $10 HARRIETT [id number] / Product Type: HMO [id number] ?? documented in this encounter Plan of Treatment Not on file documented as of this encounter Visit Diagnoses Not on filedocumented in this encounter Care Teams Agricultural Mechanic Relationship Specialty Start Date End Date Bakari Medina [address] [place] [id number] PCP - General Internal Medicine 06/26/21 documented as of this encounter
--- OUTSIDE RECORDS SUMMARY | 2024-11-15 16:36 | XMS_ITS | Encounter Summary ---
Author Organization [facility] [facility] Address [address] [place] [address] Care Team Providers Care Executive Compensation Analyst Name Role Phone Viki Hobbs MD Primary Care Provider Un available Bakari Medina Primary Care Provider [phone] Encounter Details Date Type Department Care Team Description 06/22/2019 Custom Seamstress Report Medical Records [address] [place] [address] Diana Rubin MD Social History Tobacco Use Types Packs/Day [...] on filedocumented in this encounter Care Teams Executive Compensation Analyst Relationship Specialty Start Date End Date Viki Hobbs MD PCP - General 10/09/08 06/25/21 Bakari Medina [address] [place] [address] [id number] PCP - General Internal Medicine 06/26/21 documented as of this encounter
--- OUTSIDE RECORDS SUMMARY | 2024-11-15 16:36 | XMS_ITS | Encounter Summary ---
Author Organization [facility] Address [address] [place] [address] Care Team Providers Care Driver/Guide Name Role Phone Bakari Medina Primary Care Provider [phone] Encounter Details Date Type Department Care Team Description 11/06/2023 [facility] Medical Records [address] [place] [address] Abstract, Provider Social History Tobacco Use Types [...] on filedocumented in this encounter Care Teams Driver/Guide Relationship Specialty Start Date End Date Bakari Medina [address] [place] [address] PCP - General Internal Medicine 06/26/21 documented as of this encounter
--- OUTSIDE RECORDS SUMMARY | 2024-11-15 16:36 | XMS_ITS | Encounter Summary ---
Author Organization [facility] Address [address] [place] [address] Care Team Providers Care Volcanologist Name Role Phone Viki Hobbs MD Primary Care Provider Un available Bakari Medina Primary Care Provider [phone] Encounter Details Date Type Department Care Team Description 11/07/2020 Tax Accounting Assistant Report Medical Records [address] [place] [address] Amilcar Kan MD Social History Tobacco Use [...] on filedocumented in this encounter Care Teams Volcanologist Relationship Specialty Start Date End Date Viki Hobbs MD PCP - General 10/09/08 06/25/21 Bakari Medina [address] [place] [address] [id number] PCP - General Internal Medicine 06/26/21 documented as of this encounter
--- OUTSIDE RECORDS SUMMARY | 2024-11-15 16:36 | XMS_ITS | Encounter Summary ---
Author Organization [facility] [employer] [facility] Address [address] [place] [address] Care Team Providers Care Power Plant Technician Name Role Phone Bakari Medina Primary Care Provider [phone] Encounter Details Date Type Department Care Team Description 09/03/2021 PNO Controlled Substance Contract Medical Records [address] [place] [address] Abstract, Provider Social History Tobacco Use Types [...] suspected to have Coronavirus/COVID-19? No / Unsure 09/05/2021 12:44 PM EDT documented as of this encounter Plan of Treatment Not on file documented as of this encounter Visit Diagnoses Not on filedocumented in this encounter Care Teams Power Plant Technician Relationship Specialty Start Date End Date Bakari Medina [address] [place] [address] PCP - General Internal Medicine 06/26/21 documented as of this encounter
--- OUTSIDE RECORDS SUMMARY | 2024-11-15 16:36 | XMS_ITS | Encounter Summary ---
Author Organization [facility] Address [address] [place] [address] Care Team Providers Care Lehr Attendant Name Role Phone Bakari Medina MD Primary Care Provider [phone] Reason for Visit * Reason Onset Date Comments blood work 11/15/2024 Encounter Details Date Type Department Care Team (Late st Contact Info) Description 11/15/2024 Telephone Adult Medicine [address] [phone] Bakari Medina MD [address] [place] [address] Social History Tobacco Use Types Packs/Day Years [...] Orientation Straight 02/03/2024 5: 24 PM EST documented as of this encounter Progress Notes * Derek Bolden MA - 11/15/2024 2:47 PM EDT [employer] message sent to patient. See mychart encounter from 11/12/2024 * Derek Bolden MA - 11/15/2024 1:12 PM EDT Message left for patient to return call. When patient returns call please inform her she had labs done in August and should have repeat labs done in Dec. * Meme Pablo - 11/15/2024 12:59 PM EDT The patient went to the lab today to have blood work done and was told by the lab she had to wait until 12/31/24 to have it done. Please call the patient and let her know when she can have the blood work done. documented in this encounter Plan of Treatment Upcoming Encounters Date Type Department Care Team (Late st Contact Info) Description 02/14/2025 3:00 PM EST Office Visit Adult Medicine [address] [phone] Bakari Medina MD [address] [place] [address] documented as of this encounter Visit Diagnoses Not on filedocumented in this encounter Care Teams Lehr Attendant Relationship Specialty Start Date End Date Bakari Medina MD [address] [place] [address] PCP - General Internal Medicine 06/26/21 documented as of this encounter
--- OUTSIDE RECORDS SUMMARY | 2024-11-15 16:36 | XMS_ITS | Encounter Summary ---
Author Organization [facility] [employer] [facility] Address [address] [place] [address] Care Team Providers Care Form Building Supervisor Name Role Phone Viki Hobbs MD Primary Care Provider Un available Bakari Medina Primary Care Provider [phone] Encounter Details Date Type Department Care Team Description 12/23/2019 Controlled Substance Plan Medical Records [address] [place] [address] Abstract, Provider Social History Tobacco Use Types [...] or suspected to have Coronavirus / COVID-19? No / Unsure 12/19/2019 1:05 PM EDT documented as of this encounter Plan of Treatment Not on file documented as of this encounter Visit Diagnoses Not on filedocumented in this encounter Care Teams Form Building Supervisor Relationship Specialty Start Date End Date Viki Hobbs MD PCP - General 10/09/08 06/25/21 Bakari Medina [address] [place] [address] PCP - General Internal Medicine 06/26/21 documented as of this encounter
--- OUTSIDE RECORDS SUMMARY | 2024-11-15 16:36 | XMS_ITS | Encounter Summary ---
Author Organization [facility] Address [address] [place] [address] Care Team Providers Care Boating Safety Officer Name Role Phone Viki Hobbs MD Primary Care Provider Un available Bakari Medina Primary Care Provider [phone] Encounter Details Date Type Department Care Team Description 02/20/2021 Testing Consultant Report Medical Records [address] [place] [address] Amilcar Kan MD Social History Tobacco Use [...] have Coronavirus / COVID-19? No / Unsure 02/04/2021 1:23 PM EST documented as of this encounter Plan of Treatment Not on file documented as of this encounter Visit Diagnoses Not on filedocumented in this encounter Care Teams Boating Safety Officer Relationship Specialty Start Date End Date Viki Hobbs MD PCP - General 10/09/08 06/25/21 Bakari Medina [address] [place], [place] [phone] PCP - General Internal Medicine 06/26/21 documented as of this encounter
--- OUTSIDE RECORDS SUMMARY | 2024-11-15 16:36 | XMS_ITS | Encounter Summary ---
Author Organization [facility] Address [address] [place] [address] Care Team Providers Care Rat Farmer Name Role Phone Viki Hobbs MD Primary Care Provider Un available Bakari Medina Primary Care Provider [phone] Encounter Details Date Type Department Care Team Description 03/29/2019 [facility] Medical Records [address] [place] [address] Abstract, Provider Social History Tobacco Use Types [...] on filedocumented in this encounter Care Teams Rat Farmer Relationship Specialty Start Date End Date Viki Hobbs MD PCP - General 10/09/08 06/25/21 Bakari Medina [address] [place] [address] [id number] PCP - General Internal Medicine 06/26/21 documented as of this encounter
--- OUTSIDE RECORDS SUMMARY | 2024-11-15 16:36 | XMS_ITS | Encounter Summary ---
Author Organization [employer] [facility] Address [address] [place] [address] Care Team Providers Care Garment Sewing Machine Operator Name Role Phone Viki Hobbs MD Primary Care Provider Un available Bakari Medina Primary Care Provider [phone] Encounter Details Date Type Department Care Team Description 03/14/2014 Orders Only Medicine/Pediatrics - [address] [address] Sam Schultz PA-C Social History Tobacco Use [...] on filedocumented in this encounter Care Teams Garment Sewing Machine Operator Relationship Specialty Start Date End Date Viki Hobbs MD PCP - General 10/09/08 06/25/21 Bakari Medina [address] [place] [id number] PCP - General Internal Medicine 06/26/21 documented as of this encounter
--- OUTSIDE RECORDS SUMMARY | 2024-11-15 16:36 | XMS_ITS | Encounter Summary ---
Author Organization [facility] [facility] Address [address] [place] [address] Care Team Providers Care Project Leader Name Role Phone Viki Hobbs MD Primary Care Provider Un available Bakari Medina Primary Care Provider [phone] Encounter Details Date Type Department Care Team Description 09/15/2013 Release of Information Medical Records [address] [place] [address] Abstract, Provider Social History Tobacco Use Types [...] on filedocumented in this encounter Care Teams Project Leader Relationship Specialty Start Date End Date Viki Hobbs MD PCP - General 10/09/08 06/25/21 Bakari Medina [address] [place] [address] [id number] PCP - General Internal Medicine 06/26/21 documented as of this encounter
--- OUTSIDE RECORDS SUMMARY | 2024-11-15 16:36 | XMS_ITS | Encounter Summary ---
Author Organization [facility] [employer] [facility] Address [address] [place] [address] Care Team Providers Care Paint Tinter Name Role Phone Viki Hobbs MD Primary Care Provider Un available Bakari Medina Primary Care Provider [phone] Encounter Details Date Type Department Care Team Description 01/25/2021 [facility] Medical Records [address] [place] [address] Abstract, Provider Social History Tobacco Use Types [...] on filedocumented in this encounter Care Teams Paint Tinter Relationship Specialty Start Date End Date Viki Hobbs MD PCP - General 10/09/08 06/25/21 Bakari Medina [address] [place] [address] [id number] PCP - General Internal Medicine 06/26/21 documented as of this encounter
--- OUTSIDE RECORDS SUMMARY | 2024-11-15 16:36 | XMS_ITS | Encounter Summary ---
Author Organization [facility] [employer] [facility] Address [address] [place] [address] Care Team Providers Care Sports Recruiter Name Role Phone Viki Hobbs MD Primary Care Provider Un available Bakari Medina Primary Care Provider [phone] Encounter Details Date Type Department Care Team Description 12/07/2014 [facility] Medical Records [address] [place] [address] Yury Del Rosario MD Social History Tobacco [...] on filedocumented in this encounter Care Teams Sports Recruiter Relationship Specialty Start Date End Date Viki Hobbs MD PCP - General 10/09/08 06/25/21 Bakari Medina [address] [place] [address] [id number] PCP - General Internal Medicine 06/26/21 documented as of this encounter
--- OUTSIDE RECORDS SUMMARY | 2024-11-15 16:36 | XMS_ITS | Encounter Summary ---
Author Organization [facility] [employer] [facility] Address [address] [place] [address] Care Team Providers Care Licensing Specialist Name Role Phone Viki Hobbs MD Primary Care Provider Un available Bakari Medina Primary Care Provider [phone] Encounter Details Date Type Department Care Team Description 07/27/2019 Laborer Golf Course Report Medical Records [address] [place] [address] Alba Encarnacion MD Social History Tobacco Use [...] on filedocumented in this encounter Care Teams Licensing Specialist Relationship Specialty Start Date End Date Viki Hobbs MD PCP - General 10/09/08 06/25/21 Bakari Medina [address] [place] [address] [id number] PCP - General Internal Medicine 06/26/21 documented as of this encounter
--- OUTSIDE RECORDS SUMMARY | 2024-11-15 16:36 | XMS_ITS | Clinical Summary ---
Author Organization [facility] Address [address] [facility] [address] [place] [phone] Phone Care Team Providers Care Director Of Sales Marketing Name Role Phone Bakari Meidna MD Primary Care Provider Allergies Active Allergy Reactions Criticality Noted Date Comments Butoconazole Nitrate 09/08/2005 WORSENING SYMPTOMS Egg 09/08/2005 SEVER ABDOMINAL PAIN Egg White 09/08/2005 SEVER ABDOMINAL PAIN Morphine Sulfate Nausea And Vomiting Medium 09/08/2005 Nut - Unspecified Swelling Medium 09/08/2005 EARS SWELLED Ofloxacin Unknown Medium 01/25/2021 Unknown reaction/family unable to define. Penicillins Diarrhea,Unknown Low 01/25/2021 Sulfa (Sulfonamide Antibiotics) Other (See Comments) 01/25/2021 Jittery Sulfamethoxazole-Trimet hoprim 09/08/2005 JITTERY Vancomycin Itching 06/19/2016 Medications baclofen (LIORESAL) 10 MG tablet TAKE 1 TABLET BY MOUTH 2 TIMES A DAY 7 Active calcium carbonate-vitamin D3 600-125 mg-unit Tab Take by mouth. Active cyanocobalamin, vitamin B-12, 1,000 mcg Cap Take 1,000 mcg by mouth daily. Active dicyclomine (BENTYL) 20 mg tablet Take 20 mg by mouth every 6 (six) hours as needed. Active ferrous gluconate 256 mg (28 mg elemental) Tab Take 256 mg by mouth daily with breakfast. Active fluconazole (DIFLUCAN) 100 MG tablet Take 100 mg by mouth. Active levothyroxine (SYNTHROID, LEVOTHROID) 75 MCG tablet Take 75 mcg by mouth. 6 Active loratadine (CLARITIN) 10 mg tablet Take 10 mg by mouth. Active LORazepam (ATIVAN) 0.5 MG tablet Take 0.5 mg by mouth every 12 (twelve) hours as needed. 8 Active meclizine (ANTIVERT) 12.5 mg tablet Take 12.5 mg by mouth once as needed. 7 Active meloxicam (MOBIC) 7.5 MG tablet Take 7.5 mg by mouth 2 (two) times a day as needed. 7 Active MULTIVITAMIN ORAL Take by mouth. Active predniSONE (DELTASONE) 20 MG tablet Take 3 tabs by mouth x 3 days, then 2 tabs by mouth x 3 days, then 1 tab by mouth for 3 days, then stop. 8 Active traZODone (DESYREL) 50 MG tablet TAKE TWO TABLETS BY MOUTH AT BEDTIME 8 Active TURMERIC ROOT EXTRACT ORAL Take by mouth. Active raNITIdine (ZANTAC) 150 MG tablet Take 150 mg by mouth every 6 (six) hours as needed for heartburn. Active cetirizine (ZYRTEC) 10 mg disintegrating tablet Take by mouth. Active traMADol (ULTRAM) 50 mg tablet Take 1 tablet (50 mg total) by mouth every 6 (six) hours as needed for pain (specific location in comments). 28 tablet 8 Active albuterol 90 mcg/actuation inhaler Inhale 2 puffs into the lungs every 4 (four) hours as needed. 0 Active alendronate (FOSAMAX) 70 MG tablet Take 70 mg by mouth every 7 days. 0 Active gabapentin (NEURONTIN) 100 MG capsule Take 100 mg by mouth 3 (three) times a day. 0 Active budesonide (ENTOCORT EC) 3 mg 24 hr capsule Take 3 mg by mouth 3 (three) times a day. 0 Active omeprazole (PRILOSEC) 40 MG capsule Take 40 mg by mouth daily. Active mesalamine (ASACOL HD) 800 mg TbEC Take 800 mg by mouth 4 (four) times a day. Active magnesium gluconate (MAG-G) 500 mg (27 mg elemental) Tab Take 1 tablet by mouth 2 (two) times a day. Active acetaminophen (TYLENOL) 650 MG CR tablet Take 1 tablet by mouth every 8 (eight) hours as needed. 3 Active budesonide-formote rol 160-4.5 mcg/actuation inhaler Inhale 2 puffs into the lungs 2 (two) times a day. 3 Active cyclobenzaprine (FLEXERIL) 5 MG tablet TAKE 1 TABLET BY MOUTH 2 TIMES DAILY NEEDED FOR MUSCLE SPASMS FOR UP TO 30 DOSES. 3 Active diclofenac sodium (VOLTAREN) 1 % Gel 3 Active estradioL (ESTRACE) 0.01 % (0.1 mg/gram) vaginal cream PLACE 1 GRAM VAGINALLY TWICE A WEEK 2 Active calcium carbonate-vitamin D3 1500 mg (600 mg elemental)-400 units per tablet Take 1 tablet by mouth daily. Active tiZANidine (ZANAFLEX) 4 MG capsule Take 1 Capsule by mouth at bedtime as needed for Muscle spasms. 4 Active magnesium oxide 500 mg magnesium Tab Take 1 tablet by mouth. 4 Active fluticasone propionate (FLONASE) 50 mcg/actuation nasal spray 2 sprays by Nasal route daily. 5 Active carbamide peroxide (DEBROX) 6.5 % otic solution Place 5 drops in ear(s). 4 Active nqpwgpogiouy-Af-vl on-minerals Tab Take 1 tablet by mouth daily. Active omeprazole (PRILOSEC) 20 MG capsule Take 20 mg by mouth 2 (two) times a day. Active traZODone (DESYREL) 100 MG tablet TAKE 1 TABLET BY MOUTH AT BEDTIME. (TAKE WITH 25MG FOR TOTAL NIGHTLY DOSE OF 125MG.) Active Active Problems Problem Noted Date Diagnosed Date Dizziness and giddiness 09/10/2024 Encounters Date Type Department Care Team Description 10/31/2024 Transcribe Orders [facility] [place] [address] [place] [address] [place] [address] Bakari Medina MD Hypothyroidism, unspecified type (Primary Dx) 09/28/[address] [address] Flower Chamorro 09/10/2024 4:20 PM EDT Office Visit [facility] at [address] [address] Elsy Christianson PA-C Dizziness and giddiness (Primary Dx) from Last 3 Months Social History Tobacco Use Types Packs/Day Years Used Date Smoking Tobacco: Former Smokeless Tobacco: Never Tobacco Cessation:Counseling Given: Not Answered Education Answer Date Recorded Are you interested [...] on file Sexual Orientation Not on file Last Filed Vital Signs Vital Sign Reading Time Taken Comments Blood Pressure 143/85 09/10/2024 4:34 PM EDT Pulse 62 09/10/2024 4:34 PM EDT Temperature 36.6 C (97.9 F) 09/10/2024 4:34 PM EDT Respiratory Rate 16 09/10/2024 4:34 PM EDT Oxygen Saturation 97% 09/10/2024 4:34 PM EDT Inhaled Oxygen Concentration - - Weight 67.1 kg (148 lb) 09/10/2024 4:34 PM EDT Height 160 cm (5' 3 ) 09/10/2024 4:34 PM EDT Body Mass Index 26.22 09/10/2024 4:34 PM EDT Plan of Treatment Upcoming Encounters Date Type Department Care Team (Late st Contact Info) Description 04/11/2025 10:00 AM EST Office Visit [facility] [address] [place] [address] [place] [address] Alba Encarnacion MD [address] [place] [address] Health Maintenance Due Date Last Done Comments DEPRESSION SCREENING 1963 SMOKING Hx and SMOKELESS TOBACCO SCREENING 02/12/1964 HEPATITIS C SCREENING 1969 MAMMOGRAM 1991 COLOGUARD 02/12/1996 COLONOSCOPY 02/12/1996 COLORECTAL CANCER SCREENING 02/12/1996 FIT TEST 02/12/1996 FOBT 02/12/1996 SIGMOIDOSCOPY 02/12/1996 VIRTUAL COLONOSCOPY 02/12/1996 PNEUMOCOCCAL VACCINES (50+ years) (1 of 1 - PCV) 2001 ZOSTER VACCINES (1 of 2) 2001 OSTEOPOROSIS SCREENING INITI AL (ONE-TIME) 02/12/2016 INFLUENZA VACCINE (#1) 2024 COVID-19 VACCINE (4 - 2024-2 6 season) 2024 01/14/2021, 06/07/2020, 05/10/2020 TSH LEVEL 09/08/2025 09/08/2024, 08/06/2022, 01/25/2021 RSV VACCINE (1 - 1-dose 75+ series) 2026 LIPID PANEL 02/17/2028 02/16/2023 Adult Td,Tdap Booster 09/03/2031 09/02/2021 , 06/25/2011, 04/22/2001 HEPATITIS A VACCINES Aged Out No long er eligible based on patient's age to complete this topic HIB VACCINES Aged Out No longer eligi ble based on patient's age to complete this topic MENINGOCOCCAL VACCINES (ACWY) Aged Out No longer eligible based on patient's age to complete this topic MENINGOCOCCAL VACCINES (B) Aged Out N o longer eligible based on patient's age to complete this topic Medical Devices Not on file Procedures Procedure Name Priority Date/Time Associated Diagnosis Comments TSH Routine 08/06/2022 from Last 3 Months or Most Recently Relevant to Health Maintenance Insurance [place] [id number] [place] [id number] [employer] [place] [place] [employer] COMPENSATION Care Teams Director Of Sales Marketing Relationship Specialty Start Date End Date Bakari Medina MD [address] [place] [address] PCP - General Internal Medicine 02/03/23 Additional Source Comments The information contained in this document represents components of the legal health record. It is not the complete legal health record.[facility]
--- OUTSIDE RECORDS SUMMARY | 2024-11-15 16:36 | XMS_ITS | Encounter Summary ---
Author Organization [facility] Address [address] [place] [address] Care Team Providers Care Hospital Internship Name Role Phone Viki Hobbs MD Primary Care Provider Un available Bakari Medina Primary Care Provider [phone] Encounter Details Date Type Department Care Team Description 06/26/2020 [facility] Medical Records [address] [place] [address] Abstract, Provider Social History Tobacco Use Types [...] on filedocumented in this encounter Care Teams Hospital Internship Relationship Specialty Start Date End Date Viki Hobbs MD PCP - General 10/09/08 06/25/21 Bakari Medina [address] [employer] [place], [place] [phone] PCP - General Internal Medicine 06/26/21 documented as of this encounter
--- OUTSIDE RECORDS SUMMARY | 2024-11-15 16:36 | XMS_ITS | Encounter Summary ---
Author Organization [facility] Address [address] [place] [address] Care Team Providers Care Unloader Operator Name Role Phone Viki Hobbs MD Primary Care Provider Un available Bakari Medina Primary Care Provider [phone] Encounter Details Date Type Department Care Team Description 10/08/2016 Manager Assurance Report Medical Records [address] [place] [address] Yury Del Rosario MD Social History Tobacco [...] on filedocumented in this encounter Care Teams Unloader Operator Relationship Specialty Start Date End Date Viki Hobbs MD PCP - General 10/09/08 06/25/21 Bakari Medina [address] [place], [place] [phone] PCP - General Internal Medicine 06/26/21 documented as of this encounter
--- OUTSIDE RECORDS SUMMARY | 2024-11-15 16:36 | XMS_ITS | Encounter Summary ---
Author Organization [facility] Address [address] [place] [address] Care Team Providers Care Crowning Inspector Name Role Phone Viki Hobbs MD Primary Care Provider Un available Bakari Medina Primary Care Provider [phone] Reason for Visit * Reason Onset Date Comments medication problems 06/07/2016 Encounter Details Date Type Department Care Team Description 06/07/2016 Telephone [facility] Ur[facility] [address] [place] [address] Viki Hobbs MD medication problems Social History Tobacco Use Types Packs/Day Years [...] encounter Miscellaneous Notes * Telephone Encounter - Ayaka Stout L.P.N. - 06/07/2016 10:22 AM EDT Pharmacist informed: new script faxed. She states that will be a tough one on a Thursday but she will try to find some . States not a lot of people carry dicloxicillin. She will call us by 5 pm ifshe can't find any, unless you just want to try for something else... * Telephone Encounter - Rahul Ramachandran PA-C - 06/07/2016 10:16 AM EDT Dicloxicillin sent as an alternative due to colitis risk. Thank you. * Telephone Encounter - Iqra Burrell - 06/07/2016 9:24 AM EDT What is the name of the medication patient is having a problem with?: clindamycin (CLEOCIN) 300 MG capsule What is the problem?: needs to make sure pt can take this if he also have ulcerative colitis Is the patient calling about the problem? NO If the patient is not the caller who is[facility] Is this a NEW medication?: YES How long has the patient been taking this medication? Who prescribed this medication for the patient? Sushil Juarez Who is patients PCP?: Viki Hobbs Payor: MEDICARE-[employer] / Plan: MEDICARE-[employer] / Product Type: MEDICARE [id number] documented in this encounter Plan of Treatment Not on file documented as of this encounter Visit Diagnoses Not on filedocumented in this encounter Care Teams Crowning Inspector Relationship Specialty Start Date End Date Viki Hobbs MD PCP - General 10/09/08 06/25/21 [place] [address] PCP - General Internal Medicine 06/26/21 documented as of this encounter
--- OUTSIDE RECORDS SUMMARY | 2024-11-15 16:36 | XMS_ITS | Encounter Summary ---
Author Organization [facility] Address [address] [place] [address] Care Team Providers Care Personal Fitness Trainer Name Role Phone Viki Hobbs MD Primary Care Provider Un available Bakari Medina Primary Care Provider [phone] Encounter Details Date Type Department Care Team Description 02/04/2019 Release of Information Medical Records [address] [place] [address] Abstract, Provider Social History Tobacco Use Types [...] on filedocumented in this encounter Care Teams Personal Fitness Trainer Relationship Specialty Start Date End Date Viki Hobbs MD PCP - General 10/09/08 06/25/21 Bakari Medina [address] [place] [address] [phone] PCP - General Internal Medicine 06/26/21 documented as of this encounter
== END 2024-11-15 15:57 | disposition home or self-care (01) ==
LOC: HO.ENCR 15:36
PROVIDERS: Visit Provider Internal Medicine Endocrinology, Diabetes & Metabolism
DX: E03.9 Hypothyroidism, unspecified (principal)
CPT/HCPCS: 99213

== ENCOUNTER 2024-12-21 14:11 | Outpatient (REF) | payer MEDICARE, SELFPAY ==
[2024-12-21 16:17] LABS: Free T4 (Free Thyroxine) 1.11 ng/dL (0.71-1.85); Thyroid Stimulating Hormone 3.37 uIU/mL (0.32-4.0)
== END 2024-12-21 14:12 | disposition home or self-care (01) ==
LOC: HO.LAB 14:11
PROVIDERS: PCP Internal Medicine; Visit Provider Internal Medicine Endocrinology, Diabetes & Metabolism
DX: E03.9 Hypothyroidism, unspecified (principal)
CPT/HCPCS: 36415; 84439; 84443

== ENCOUNTER 2025-03-01 10:04 | Outpatient (AMB) | payer MEDICARE, SELFPAY ==
--- OUTSIDE RECORDS SUMMARY | 2023-10-19 05:30 | XMS_ITS ---
[facility] Organization [facility] Address [address] [place] [id number] Care Team Providers Care Rehabilitation Services Director Name Role Phone Bakari Medina Primary Care Provider Unavailab Don Lentz Unavailable [phone] Lon Zamora Unavailable [phone] Encounters Encounter Location Date Provider Diagnosis [address] [id number] 10/19/2023 Lon Zamora Plan Of Treatment Next Appt Details Provider Name:Don Hernandez , 04/21/2025 12:00:00 PM, [address] [place] [address], [id number], Progress Notes * Tatiana BARILLASDOB:1950 (75 yo F)Acc No.[id number]:10/19/2023 Progress Note Patient: Tatiana SHETTY Provider: Balaji Ware DPM :1950 A ge:73 Y S ex:Female Date:10/19/2023 Address:[address] [place], [place] [id number] Pcp:Bakari Medina Subjective: * Chief Complaints: * * Medical History: Objective: * Vitals: Assessment: Plan: * Treatment: * Images: * The named appointment provid er may or may not be the originator of this progress note, and it is not deemed complete until electronically signed by the appointment provider. Sign off status: Pending * Provider: Balaji Ware DPM Date: 0 10/19/2023 Generated for Noy Masterson on: 05/02/2024 12:18 PM EST
--- OUTSIDE RECORDS SUMMARY | 2024-12-09 06:15 | XMS_ITS ---
Author Organization [facility] Address [address] [place] [id number] Care Team Providers Care Behavior Clinician Name Role Phone Bakari Medina Primary Care Provider Unavailab Don Lentz Unavailable [phone] Encounters Encounter Location Date Provider Diagnosis [address] [address] 12/09/2024 Don Hernandez Plan Of Treatment Next Appt Details Provider Name:Don Hernandez , 04/21/2025 12:00:00 PM, [address] [place] [address], [phone], Progress Notes * Tatiana BARILLASDOB:1950 (75 yo F)Acc No.[id number]:12/09/2024 Progress Note Patient: Tatiana SHETTY Provider: Diane Hernandez DPM :1950 A ge:74 Y S ex:Female Date:12/09/2024 Address:[address] [place] [address] [phone] Pcp:Bakari Medina Subjective: * Chief Complaints: * * Medical History: Objective: * Vitals: Assessment: Plan: * Treatment: * Images: * The named appointment provid er may or may not be the originator of this progress note, and it is not deemed complete until electronically signed by the appointment provider. Sign off status: Pending * Provider: Diane Hernandez DPM Date: 0 12/09/2024 Generated for Noy ryan/Nellie on: 1 05/02/2024 12:17 PM EST
--- OUTSIDE RECORDS SUMMARY | 2025-02-24 11:30 | XMS_ITS | Encounter Summary ---
Author Organization [facility] Address [address] [place] [address] Care Team Providers Care Repair Supervisor Name Role Phone Bakari Medina MD Primary Care Provider [phone] Reason for Referral * Medications - Denied Specialty Diagnoses / Procedures Referred By Margaret t Referred To Contact Diagnoses Chronic midline low back pain without sciatica Bakari Medina MD [address] [place] [address] Phone: tel: fax: Referral ID Status Reason Start Date Expiration Date Visits Re quested Visits Authorized [id number] Denied 1 1 * Imaging (Routine) - Pending Review Specialty Diagnoses / Procedures Referred By Margaret t Referred To Contact Radiology Diagnoses Encounter for osteoporosis screening in asymptomatic postmenopausal patient Procedures BD Bone Density DXA Axial Skeleton Bakari Medina MD [address] [place] [address] Phone: tel: fax: [facility] Referral ID Status Reason Start Date Expiration Date V isits Requested Visits Authorized [id number] Pending Review 02/24/2025 02/24/2026 1 1 Reason for Visit * Reason Comments Follow-up Medicare Annual Wellness Visit Subsequen t Encounter Details Date Type Department Care Team (Late st Contact Info) Description 02/24/2025 11:30 AM EST [facility] [address], [place] [phone] Bakari Medina MD [address], [place] Urinary frequency (Primary Dx); Acquired hypothyroidism; Moderate persistent asthma without complication; Lung nodule; Stage 3a chronic kidney disease (CMS/HCC V24, CMS/HCC V28); Gastroesophageal reflux disease without esophagitis; Lymphocytic colitis; Chronic midline low back pain without sciatica; Age-related osteoporosis without current pathological fracture; Anxiety disorder, unspecified type; Encounter for subsequent annual wellness visit (AWV) in Medicare patient; Need for vaccination against Streptococcus pneumoniae; Encounter for osteoporosis screening in asymptomatic postmenopausal patient Social History Tobacco Use Types Packs/Day Years Used Date Smoking Tobacco: Former Smokeless Tobacco: Never Alcohol Use Standard Drinks/Week Comments Yes 0 (1 standard drink = 0.6 oz pur e alcohol) Housing Instability Answer Date Recorde d Are you worried that in the next 2 months you may not have stable housing? No 02/24/2025 Food Access & Nutrition Answer Date Rec orded Do you have access to a vari ety of food including fruits and vegetables? Yes 02/24/2025 Access to Healthcare Answer Date Record ed Within the last 3 months, ho w many times did you visit the emergency department for your medical care? 0 02/24/2025 Health Literacy Answer Date Recorded How often do you need to hav e someone help you when you read instructions, pamphlets, or other written material from your doctor or pharmacy? Never 02/24/2025 Caregiver: How often do you need to have someone help you when you read instructions, pamphlets, or other written material from your doctor or pharmacy? Not on file 02/24/2025 Financial Risk Answer Date Recorded How hard is it for you to pa y for the very basics like food, housing, medical care, and air conditioning / heating? Not very hard 02/24/2025 Transportation Answer Date Recorded Has the lack of transportati on kept you from meetings, work, or from getting things needed for daily living? No Has the lack of transportati on kept you from medical appointments or from getting medications? No 02/24/2025 Social Isolation Answer Date Recorded How often do you feel lonely or isolated from th ose around you? Never 02/24/2025 Food Risk Answer Date Recorded Within the past 12 months we worried whether our food would run out before we got money to buy more. Never true 02/24/2025 Within the past 12 months th e food we bought just didn't last and we didn't have money to get more. Never true 02/24/2025 Dependent Care Answer Date Recorded Do you need help finding or paying for care for your loved ones. For example, children's librarian or elderly care for an older adult? No 02/24/2025 Education Answer Date Recorded Do you think completing more education or training, like finishing a GED, going to college, or learning a trade, would be helpful for you? No 02/24/2025 Employment and Income Answer Date Recor ded During the last four weeks, have you been actively looking for work? No 02/24/2025 Living Situation Answer Date Recorded What is your living situation? Unrecognized valu e 02/24/2025 Comments No Sex and Gender Information Value Date Recorded Sex Assigned at Female 02/03/2024 5:24 PM EST Legal Sex Female 7:04 AM EST Gender Identity Female 02/03/2024 5:24 PM EST Sexual Orientation Straight 02/03/2024 5: 24 PM EST documented as of this encounter Last Filed Vital Signs Vital Sign Reading Time Taken Comments Blood Pressure 129/74 02/24/2025 11:40 AM EST Pulse 70 02/24/2025 11:40 AM EST Temperature 36.4 C (97.6 F) 02/24/2025 11:40 AM EST Respiratory Rate - - Oxygen Saturation - - Inhaled Oxygen Concentration - - Weight 68 kg (150 lb) 02/24/2025 11:40 AM EST Height 160 cm (5' 3 ) 02/24/2025 11:40 AM EST Body Mass Index 26.57 02/24/2025 11:40 AM EST documented in this encounter Ordered Prescriptions Prescription Sig Dispense Quantity Refills Last Filled Start Date End Date cyclobenzaprine (FLEXERIL) 5 mg tabletIndications: Chronic midline low back pain without sciatica Take 1 tablet (5 mg total) by mouth at bedtime as needed for muscle spasms. 90 tablet 1 02/24/2025 albuterol HFA (PROAIR HFA ; PROVENTIL HFA ; VENTOLIN HFA) 90 mcg/actuation inhaler Inhale 2 puffs by mouth every 4 (four) hours if needed for wheezing. into the lungs every 4 hours as needed for Cough, Wheezing or Shortness of Breath 6.7 g 2 02/24/2025 documented in this encounter Progress Notes * Bakari Medina MD - 02/24/2025 11:30 AM ESTAssociated Problem(s): Hypothyroidism Orders: Thyroid stimulating hormone with reflex to free t4 and free t3; Future * Bakari Medina MD - 02/24/2025 11:30 AM ESTAssociated Problem(s): Moderate persistent asthma without complication * Bakari Medina MD - 02/24/2025 11:30 AM ESTAssociated Problem(s): Lung nodule * Bakari Medina MD - 02/24/2025 11:30 AM ESTAssociated Problem(s): Stage 3a chronic kidney disease (CMS/HCC V24, CMS/HCC V28) * Bakari Medina MD - 02/24/2025 11:30 AM ESTAssociated Problem(s): GERD (gastroesophageal reflux disease) * Bakari Medina MD - 02/24/2025 11:30 AM ESTAssociated Problem(s): Lymphocytic colitis * Bakari Medina MD - 02/24/2025 11:30 AM ESTAssociated Problem(s): Chronic midline low back pain without sciatica Orders: Drug abuse screen expanded with reflex confirmation, urine; Future cyclobenzaprine (FLEXERIL) 5 mg tablet; Take 1 tablet (5 mg total) by mouth at bedtime as needed for muscle spasms. * Bakari Medina MD - 02/24/2025 11:30 AM ESTAssociated Problem(s): Osteoporosis * Bakari Medina MD - 02/24/2025 11:30 AM EST CHIEF COMPLAINT: Follow-up and Medicare Annual Wellness Visit Subsequent IDENTIFIER: Tatiana Barillas is a 75 y.o. old female. HPI: 75-year-old female patient with the past medical history of chronic low backache/Worker's Comp, three back surgeries in the remote past, anxiety disorder, insomnia, GI bleed, lymphocytic colitis, osteoporosis, asthma, lung nodule, allergic rhinitis, recurrent sinusitis, hypothyroidism and remote his tory of lupus with skin manifestation, who is seen here for med review follow-up exam and annual wellness visit. She complained of increased urinary frequency and pelvic pressure. I will order urinalysis to rule out UTI. She was recently seen by nurse clinician at [facility] and her levothyroxine dose was reduced to 75 mcg daily. She is on Symbicort and albuterol MDI and asthma symptoms are under control. Recent CT scan chest did not show any suspicious lung nodules. Tizanidine 4 mg making her drowsy, I will switch to Flexeril 5 mg as needed at night for muscle spasm/backache. She uses Tylenol as needed, diclofenac gel topical application and tramadol 50 mg as needed for severe pain for chronic backache. She is ambulating independently. She is on Fosamax, calcium and vitamin D supplementation for osteoporosis. She takes trazodone and Ativan 0.5 mg at night for insomnia/anxiety disorder She lives independently. She is fairly active. She would like to enroll her son and daughter as herhealthcare proxies. Health maintenance is reviewed. She will receive PCV-20 vaccine today. Her last colonoscopy was in 03/2024-normal study. Recent mammogram was normal study. I will order bone density scan. Recent CT scan chest did not show any suspicious lung nodules ROS: GENERAL: No malaise, significant weight loss or fever HEENT: No changes in hearing or vision, nose bleeds or other nasal problems NECK: No lumps RESPIRATORY: No cough, wheezing or shortness of breath CARDIOVASCULAR: No chest pain, or palpitations GI: No abdominal pain, hematochezia, melena : Urinary frequency and pelvic pressure MUSCULOSKELETAL: Chronic low backache. SKIN: No lesions, rash or itching NEURO: No persistent headache, syncope, seizures, weakness or numbness PAST MEDICAL HISTORY: Patient Active Problem List Diagnosis Date Noted Stage 3a chronic [place] disease [place] [place] [facility] V28) 09/29/2024 SLE (systemic lupus erythematosus) [place] [place] [facility] [place] 05/07/2023 Subacromial bursitis 05/07/2023 Lung nodule 06/20/2022 Mild persistent asthma without complication 06/20/2022 Chronic midline low back pain without sciatica 09/02/2021 Right hip pain 09/02/2021 Moderate persistent asthma without complication 09/02/2021 Raynaud's disease 02/21/2021 GI bleed 02/21/2021 Leukocytosis 02/21/2021 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 Allergic rhinitis 02/21/2021 Syncope and collapse 01/25/2021 Osteoporosis 12/15/2017 Lymphocytic colitis 06/07/2008 Cataract 06/07/2008 Insomnia, unspecified 08/28/2006 IBS (irritable bowel syndrome) 01/26/2006 GERD (gastroesophageal reflux disease) 09/09/2005 Anxiety state 09/09/2005 Hypothyroidism 09/08/2005 Lupus panniculitis 09/08/2005 Tubular adenoma 03/16/2004 Shingles 09/14/2003 Surgical History[1] SOCIAL HISTORY: Social History Tobacco Use Smoking status: Former Smokeless tobacco: Never Substance Use Topics Alcohol use: Yes FAMILY HISTORY: Family History[2] Family Status Relation Name Status Mother Father Sister Alive Sister Alive Sister Alive Sister (Not Specified) Sister (Not Specified) Brother Alive Brother (Not Specified) Brother (Not Specified) MGM MGF PGM PGF Daughter Alive Son Alive Son Alive Other (Not Specified) Neg Hx (Not Specified) No partnership data on file MEDICATIONS DISCONTINUED/REORDERED: Medications Discontinued During This Encounter Medication Reason LORazepam (ATIVAN) 0.5 mg tablet LORazepam (ATIVAN) 0.5 mg tablet predniSONE (DELTASONE) 20 mg tablet tiZANidine (ZANAFLEX) 4 mg capsule albuterol HFA (PROAIR HFA ; PROVENTIL HFA ; VENTOLIN HFA) 90 mcg/actuation inhaler Reorder ACTIVE MEDICATIONS: Medications Taking[3] ALLERGIES: Current Allergies[4] PHYSICAL EXAM: Visit Vitals BP 129/74 Pulse 70 Temp 36.4 ??C (97.6 ??F) Ht 1.6 m (63 ) Wt 68 kg (150 lb) BMI 26.57 kg/m?? OB Status Postmenopausal Smoking Status Former BSA 1.71 m?? Physical Exam APPEARANCE: Alert and in no acute distress EYES: PERRLA, conjunctiva and sclera normal. EARS: Mild cerumen impaction left ear NOSE/SINUS: Nares normal. MOUTH/THROAT: no erythema or exudates HEART: RRR with normal S1 and S2, no murmurs LUNG: clear to auscultation, no wheezing ABDOMEN: Bowel sounds normoactive, soft, non-tender and no palpable masses. BACK: Chronic backache EXTREMITIES: No pedal edema NEURO: Awake, alert and oriented x 3. No focal neurological deficits SKIN: No rashes LABS: @CBC@ Lab Results Component Value Date NA 141 09/08/2024 K 3.7 09/08/2024 CL 107 09/08/2024 CO2 25 09/08/2024 GLUCOSE 156 (H) 09/08/2024 BUN 15 09/08/2024 CREATININE 1.12 (H) 09/08/2024 CALCIUM 8.8 09/08/2024 PROT 7.2 02/18/2024 ALBUMIN 4.0 02/18/2024 BILITOT 0.5 02/18/2024 AST 32 02/18/2024 ALT 32 02/18/2024 MG 2.0 09/08/2024 ALKPHOS 120 02/18/2024 EGFR 52 (L) 09/08/2024 Lab Results Component Value Date HGBA1C 5.1 02/16/2023 Lab Results Component Value Date TSH 0.70 02/10/2025 Lab Results Component Value Date CHOL 210 (A) 02/16/2023 TRIG 126 02/16/2023 HDL 64 02/16/2023 LDL 121 (A) 02/16/2023 IMAGING: CT scan chest-no suspicious lung nodules IMPRESSION: 1. Urinary frequency 2. Acquired hypothyroidism 3. Moderate persistent asthma without complication 4. Lung nodule 5. Stage 3a chronic kidney disease (CMS/HCC V24, CMS/HCC V28) 6. Gastroesophageal reflux disease without esophagitis 7. Lymphocytic colitis 8. Chronic midline low back pain without sciatica 9. Age-related osteoporosis without current pathological fracture 10. Anxiety disorder, unspecified type 11. Encounter for subsequent annual wellness visit (AWV) in Medicare patient 12. Need for vaccination against Streptococcus pneumoniae 13. Encounter for osteoporosis screening in asymptomatic postmenopausal patient PLAN: She complained of increased urinary frequency and pelvic pressure. I will order urinalysis to rule out UTI. She was recently seen by nurse clinician at [facility] and her levothyroxine dose was reduced to 75 mcg daily. She is on Symbicort and albuterol MDI and asthma symptoms are under control. Recent CT scan chest did not show any suspicious lung nodules. Renal function is stable and she does not use any NSAIDs. GERD symptoms are under control, continue Meprazole 20 mg daily. Lymphocytic colitis is in remission, no history of diarrhea. Tizanidine 4 mg making her drowsy, I will switch to Flexeril 5 mg as needed at night for muscle spasm/backache. She uses Tylenol as needed, diclofenac gel topical application and tramadol 50 mg as needed for severe pain for chronic backache. She is ambulating independently. Ordered urine drug screen. She is on Fosamax, calcium and vitamin D supplementation for osteoporosis. She takes trazodone and Ativan 0.5 mg at night for insomnia/anxiety disorder Repeat TSH level in 1 month Follow-up exam in 4 months All questions and concerns were addressed. Tatiana Barillas verbalizes understanding and agrees with this treatment plan. Patient was reminded to call or return to the office if any new or existing problems arise. Orders Placed This Encounter Procedures BD Bone Density DXA Axial Skeleton Pneumococcal conjugate 20 valent (Prevnar 20, PCV 20) 2mo and older Urinalysis with reflex microscopic and culture Drug abuse screen expanded with reflex confirmation, urine Thyroid stimulating hormone with reflex to free t4 and free t3 PNEUMOCOCCAL CONJUGATE 20 VALENT (PREVNAR 20, PCV 20) 2MO AND OLDER BD BONE DENSITY DXA AXIAL SKELETON Bakari Medina MD on 02/24/2025 at 12:14 PM EST Today's documentation was made using voice recognition software.This note may contain grammatical errors secondary to this software. [1] Past Surgical History: Procedure Laterality Date BACK SURGERY PROCEDURE: HISTORICAL BACK SURGERY; COMMENT: x's 3 L3-L4 CHOLECYSTECTOMY 05/18 PROCEDURE: LA CHOLECYSTECTOMY COLONOSCOPY 12/2017 Dr. Vo, unremarkable (5yr -hx polyp) COLONOSCOPY 2013 Dr. Vo COLONOSCOPY 04/2008 Dr. Vo, nl with bx consistent with lymphocytic colitis ESOPHAGOGASTRODUODENOSCOPY 12/2017 Dr. Vo - unremarkable ESOPHAGOGASTRODUODENOSCOPY 01/2021 [place] as inpt for bleed - unremarkble per notes OTHER SURGICAL HISTORY 04/28/02 PROCEDURE: HISTORICAL TOTAL HYSTERECTOMY W/O BSO OTHER SURGICAL HISTORY 10/12/14 PROCEDURE: MYELOGRAM OF LOWER SPINE; COMMENT: L1-L5 [facility] TUBAL LIGATION PROCEDURE: HISTORICAL TUBAL LIGATION UPPER GASTROINTESTINAL ENDOSCOPY 10/20/02 PROCEDURE: LA UPPER GI ENDOSCOPY PERFORMED [2] Family History Problem Relation Name Age of Onset Other cancer Mother Throat; 50's Lung cancer Other (Other: Emphysema) Father 50 Other (Other: heart) Father No Known Problems Sister No Known Problems Sister No Known Problems Sister Thyroid disease Sister corinne Other (Other: anemia) Sister love No Known Problems Brother Hypertension Brother Hyperlipidemia Brother high No Known Problems Maternal Grandmother No Known Problems Maternal Grandfather No Known Problems Paternal Grandmother No Known Problems Paternal Grandfather No Known Problems Daughter No Known Problems Son No Known Problems Son No Known Problems Other Breast cancer Neg Hx [3] Outpatient Medications Marked as Taking for the 02/24/25 encounter (Office Visit) with Bakari Medina MD Medication Sig Dispense Refill acetaminophen (TYLENOL 8 HOUR) 650 mg 8 hr tablet TAKE 1 TABLET BY MOUTH EVERY 8 HOURS NEEDED FOR PAIN 90 tablet 1 albuterol HFA (PROAIR HFA ; PROVENTIL HFA ; VENTOLIN HFA) 90 mcg/actuation inhaler Inhale 2 puffs by mouth every 4 (four) hours if needed for wheezing. into the lungs every 4 hours as needed for Cough, Wheezing or Shortness of Breath 6.7 g 2 alendronate (FOSAMAX) 70 mg tablet Take 1 tablet (70 mg total) by mouth. ONCE A WEEK calcium carbonate-vitamin D3 600 mg-5 mcg (200 unit) capsule Take by mouth. 1 tab po tid diclofenac (VOLTAREN) 1 % topical gel Apply 2 g topically 2 (two) times a day if needed (pain). 100g 3 dicyclomine (BENTYL) 20 mg tablet Take 1 tablet (20 mg total) by mouth 4 (four) times a day (beforemeals and nightly). 360 tablet 1 estradioL (ESTRACE) 0.01 % (0.1 mg/gram) vaginal cream PLACE 1 GRAM VAGINALLY TWICE A WEEK 42.5 g 1 fluticasone propionate (FLONASE) 50 mcg/actuation nasal spray SPRAY 2 SPRAYS BY NASAL ROUTE DAILY 16 mL 1 inhalat.spacing dev,large mask spacer Use with inhaler as needed levothyroxine (SYNTHROID, LEVOTHROID) 75 mcg tablet TAKE 1 TABLET BY MOUTH 1 TIME EACH DAY BEFORE BREAKFAST. 90 tablet 1 loratadine (CLARITIN) 10 mg tablet Take 1 tablet (10 mg total) by mouth 1 (one) time each day. LORazepam (ATIVAN) 0.5 mg tablet TAKE 1 TABLET BY MOUTH EVERY DAY AT BEDTIME NEEDED FOR INSOMNIA/ANXIETY 28 tablet 0 magnesium oxide 500 mg magnesium tablet Take 1 tablet by mouth 1 (one) time each day. meclizine (ANTIVERT) 12.5 mg tablet TAKE 1 TABLET BY MOUTH 3 TIMES DAILY NEEDED FOR VERTIGO 90 tablet 1 MULTIVITAMIN ORAL Take by mouth. ONE QD omeprazole (PriLOSEC) [address] capsule TAKE 1 CAPSULE BY MOUTH TWICE A DAY 180 capsule 1 Symbicort 160-4.5 mcg/actuation inhaler INHALE 2 PUFFS INTO THE LUNGS TWICE A DAY 10.2 each 4 traMADoL (ULTRAM) 50 mg tablet Take 1 tablet (50 mg total) by mouth 1 (one) time each day if neededfor severe pain. Max Daily Amount: 50 mg 28 tablet 0 traZODone (DESYREL) 100 mg tablet TAKE 1 TABLET BY MOUTH AT BEDTIME. (TAKE WITH 25MG FOR TOTAL NIGHTLY DOSE OF 125MG.) 90 tablet 1 traZODone (DESYREL) 50 mg tablet TAKE 1/2 TABLET (25 MG) BY MOUTH AT BEDTIME (WITH 100MG TOTAL 125MG) 45 tablet 1 [DISCONTINUED] albuterol HFA (PROAIR HFA ; PROVENTIL HFA ; VENTOLIN HFA) 90 mcg/actuation inhaler Inhale 2 puffs by mouth every 4 (four) hours if needed for wheezing. into the lungs every 4 hours as needed for Cough, Wheezing or Shortness of Breath 6.7 g 0 [DISCONTINUED] LORazepam (ATIVAN) 0.5 mg tablet Take 1 tablet (0.5 mg total) by mouth 1 (one) time each day if needed for anxiety. Max Daily Amount: 0.5 mg 28 tablet 0 [DISCONTINUED] tiZANidine (ZANAFLEX) 4 mg capsule TAKE 1 CAPSULE BY MOUTH AT BEDTIME NEEDED FOR MUSCLE SPASMS. 30 capsule 3 [4] Allergies Allergen Reactions Vancomycin Anaphylaxis and Itching Morphine Sulfate Nausea And Vomiting Ofloxacin Swelling Unknown reaction/family unable to define. Floxin Otic : EARS SWELLED Amoxicillin-Pot Clavulanate Diarrhea Egg Nausea And Vomiting & Albumen: SEVER ABDOMINAL PAIN Penicillins Sulfa (Sulfonamide Antibiotics) Other Jittery Bactrim [Sulfamethoxazole-Trimethoprim] JITTERY Butoconazole Nitrate WORSENING SYMPTOMS * Bakari Medina MD - 02/24/2025 11:30 AM EST Images from the original note were not included. Medicare Annual Wellness Visit Note Patient Name: Tatiana Barillas Date of : 1950 Race: White Ethnicity: Not Hispan/Lat Date of Service: 02/24/2025 Tatiana is a 75 y.o. female presenting for Follow-up and Medicare Annual Wellness Visit Subsequent History of Present Illness 75-year-old female patient with the past medical history of chronic low backache/Worker's Comp, three back surgeries in the remote past, anxiety disorder, insomnia, GI bleed, lymphocytic colitis, osteoporosis, asthma, lung nodule, allergic rhinitis, recurrent sinusitis, hypothyroidism and remote his tory of lupus with skin manifestation, who is seen here for med review follow-up exam and annual wellness visit. She complained of increased urinary frequency and pelvic pressure. I will order urinalysis to rule out UTI. She was recently seen by nurse clinician at [facility] and her levothyroxine dose was reduced to 75 mcg daily. She is on Symbicort and albuterol MDI and asthma symptoms are under control. Recent CT scan chest did not show any suspicious lung nodules. Tizanidine 4 mg making her drowsy, I will switch to Flexeril 5 mg as needed at night for muscle spasm/backache. She uses Tylenol as needed, diclofenac gel topical application and tramadol 50 mg as needed for severe pain for chronic backache. She is ambulating independently. She is on Fosamax, calcium and vitamin D supplementation for osteoporosis. She takes trazodone and Ativan 0.5 mg at night for insomnia/anxiety disorder She lives independently. She is fairly active. She would like to enroll her son and daughter as herhealthcare proxies. Health maintenance is reviewed. She will receive PCV-20 vaccine today. Her last colonoscopy was in 03/2024-normal study. Recent mammogram was normal study. I will order bone density scan. Recent CT scan chest did not show any suspicious lung nodules Comprehensive Medical and Social History: Problem List[1] Allergies[2] Current Medications[3] Medical History[4] Surgical History[5] Social History Socioeconomic History Marital status: Spouse name: Not on file Number of children: Not on file Years of education: Not on file Highest education level: Not on file Occupational History Not on file Tobacco Use Smoking status: Former Smokeless tobacco: Never Substance and Sexual Activity Alcohol use: Yes Drug use: Never Sexual activity: Not on file Other Topics Concern Not on file Social History Narrative Not on file Family History[6] Immunizations: Immunization History Administered Date(s) Administered Moderna SARS-CoV-2 COVID-19, mRNA, LNP-S, preservative free 05/10/2020, 06/07/2020, 01/14/2021 Pneumococcal conjugate 20 valent (Prevnar 20, PCV 20) 2mo and older 02/24/2025 Td Tetanus diptheria (Tdvax) 7yo and older 04/22/2001 Tdap Tetanus diptheria acellular pertussis (Boostrix; Adacel) 7yo and older 06/25/2011, 09/02/2021 Hospitalization in the last year: Has not been hospitalized in the past 12 months. Current Providers and Suppliers: Patient Care Team: Bakari Medina MD as PCP - General (Internal Medicine) Diana Rubin MD as Consulting Physician (Gastroenterology) Patient does not have/use current medical supplier Risk Assessments: Cognitive Function Assessment Mini-Cognitive screening performed, results reviewed Clock Drawing Test: Normal Word Recall: Two Words Mini Cog Score: 4 Mini Cog Results: Negative screen for dementia Depression Screening (PHQ2/9): Depression Screening Over the last 2 weeks, how often have you been bothered by little interest or pleasure in doing things?: Not at all Over the last 2 weeks, how often have you been bothered by feeling down, depressed, or hopeless?: Not at all Depression Risk: 0 PHQ9 Full Set of Questions Over the last 2 weeks, how often have you been bothered by little interest or pleasure in doing things?: Not at all Over the last 2 weeks, how often have you been bothered by feeling down, depressed, or hopeless?: Not at all PHQ -9 Depression Risk Score: 0 Screening Result: Negative Risk Category: Negative Depression Plan : Screen was negative Anxiety Screening: Alcohol Screening: Substance Abuse Screening: Pain: Pain Medications: Discussed opioid prescription(s) and benefit of alternate medication options. Opioid Risk Screen completed. Opioid Risk Score she is under controlled substance contract for low-dose of tramadol. Urine drug screen is appropriate. BMI: Body mass index is 26.57 kg/m??. The BMI is above average. The patient received dietary education, feeding regime, and exercise education because they have an above normal BMI. Functional Ability and Level of Safety Review Health Status: In general, the patient reports health as: good In general, patient reports life as: good Patient reports sleep pattern as: restless Have you seen a dentist in the last year?: Yes Activity of Daily Living (ADLs): She is independent with ADLs Instrumental Activities of Daily Living (IADLs): Do you need help with using the telephone?: No Do you need help with shopping?: No Do you need help with food preparation?: No Do you need help with housekeeping?: No Do you need help with laundry?: No Do you need help handling finances?: No Do you drive?: Yes Do you manage your own medication?: Yes, independent Physical Activity: Do you exercise for about 20 minutes or more three days a week?: No Nutritional Assessment: Do you eat a balanced diet including daily serving of fruits, vegetables, and whole grains?: Yes, most of the time Social Influencer of Health (SIOH): Social Influencers of Health Who provided answers?: Self Within the past 12 months we worried whether our food would run out before we got money to buy more.: Never true Within the past 12 months the food we bought just didn't last and we didn't have money to get more.: Never true How hard is it for you to pay for the very basics like food, housing, medical care, and air conditioning / heating?: Not very hard Are you worried that in the next 2 months you may not have stable housing?: No Do you have access to a variety of food including fruits and vegetables?: Yes Within the last 3 months, how many times did you visit the emergency department for your medical care?: 0 Has the lack of transportation kept you from meetings, work, or from getting things needed for daily living?: No Has the lack of transportation kept you from medical appointments or from getting medications?: No How often do you feel lonely or isolated from those around you?: Never How often do you need to have someone help you when you read instructions, pamphlets, or other written material from your doctor or pharmacy?: Never Sexual Health: Have you been bothered by sexual problems: No Fall Risk: Have you fallen in the past year? no. Are you worried about falling? no. . Hearing: Whisper Test: PASS Vision Screening: Required for Medicare Initial Preventative Physical Exam (IPPE) Was a Snellen eye exam done?: No Was an eye exam done in the last year?: Yes Review of Systems Review of Systems GENERAL: No malaise, significant weight loss or fever HEENT: No changes in hearing or vision, nose bleeds or other nasal problems NECK: No lumps RESPIRATORY: No cough, wheezing or shortness of breath CARDIOVASCULAR: No chest pain, or palpitations GI: No abdominal pain, hematochezia, melena : Urinary frequency MUSCULOSKELETAL: Chronic backache. SKIN: No lesions, rash or itching NEURO: No persistent headache, syncope, seizures, weakness or numbness Objective BP 129/74 Pulse 70 Temp 36.4 ??C (97.6 ??F) Ht 1.6 m (63 ) Wt 68 kg (150 lb) BMI 26.57 kg/m?? Physical Exam APPEARANCE: Alert and in no acute distress EYES: PERRLA, conjunctiva and sclera normal. EARS: External ears normal. NOSE/SINUS: Nares normal. MOUTH/THROAT: no erythema or exudates HEART: RRR with normal S1 and S2, no murmurs LUNG: clear to auscultation, no wheezing ABDOMEN: Bowel sounds normoactive, soft, non-tender and no palpable masses. BACK: Chronic backache EXTREMITIES: No edema NEURO: Awake, alert and oriented x 3. No focal neurological deficits SKIN: No rashes Assessment/Plan Patient presented today for an Subsequent Medicare Wellness Visit with management of chronic condition(s). Assessment & Plan Urinary frequency Orders: Urinalysis with reflex microscopic and culture; Future Acquired hypothyroidism Orders: Thyroid stimulating hormone with reflex to free t4 and free t3; Future Moderate persistent asthma without complication Lung nodule Stage 3a chronic kidney disease ([facility] V24, [facility] V28) Gastroesophageal reflux disease without esophagitis Lymphocytic colitis Chronic midline low back pain without sciatica Orders: Drug abuse screen expanded with reflex confirmation, urine; Future cyclobenzaprine (FLEXERIL) 5 mg tablet; Take 1 tablet (5 mg total) by mouth at bedtime as needed for muscle spasms. Age-related osteoporosis without current pathological fracture Anxiety disorder, unspecified type Orders: Drug abuse screen expanded with reflex confirmation, urine; Future Encounter for subsequent annual wellness visit (AWV) in Medicare patient Need for vaccination against Streptococcus pneumoniae Orders: Pneumococcal conjugate 20 valent (Prevnar 20, PCV 20) 2mo and older Encounter for osteoporosis screening in asymptomatic postmenopausal patient Orders: BD Bone Density DXA Axial Skeleton; Future Advance Care Planning Discussion: Advance Care Planning was discussed. Tatiana reports that she does have advance directives and/or surrogate decision maker. Patient has identified their surrogate decision maker. During the visit we discussed: Code Status was discussed No Order A total time of 16 minutes or greater was spent on Advance Care Planning today :No Her son and daughter will be her healthcare proxies. CODE STATUS is discussed with patient. Fall Prevention Education Discussed: removal of throw rugs in home, adequate lighting/night lights,pausing with transitional movements, paying attention to surroundings, clear pathways/stairs, not rushing through tasks, and safe mobility over [place]ina transitions Health Maintenance Topic Date Due Naloxone Order Never done Opioid Substance Agreement Never done Pain Assessment Never done Non-Opioid Controlled Substance Agreement Never done Zoster Vaccines (1 of 2) Never done RSV Immunization Adult Patients (1 - Risk 50-74 years 1-dose series) Never done Social Influencers of Health Screening Never done Medicare Annual Wellness Visit Never done Falls Risk Assessment 09/16/2023 Influenza Vaccine (1) Never done COVID-19 Vaccine (4 - 2024- season) 2024 Drug Screen 09/30/2025 Breast Cancer Screening 10/18/2026 Osteoporosis Screening (Bone Density Screening) 12/10/2027 Cholesterol Screening (Lipid Panel) 02/17/2028 Colorectal Cancer Screening: Colonoscopy 04/12/2029 DTaP,Tdap,and Td Vaccines (4 - Td or Tdap) 09/03/2031 Pneumococcal Vaccine: 50+ Years Completed Hepatitis C Screening Completed Depression Screening Completed HIB Vaccines Aged Out Hepatitis B Vaccines Aged Out IPV Vaccines Aged Out Hepatitis A Vaccines Aged Out MMR Vaccines Aged Out Varicella Vaccines Aged Out Meningococcal ACWY Vaccine Aged Out Meningococcal B Vaccine Aged Out HPV Vaccines Aged Out RSV Immunization Patients Under 20 months Aged Out Bakari Medina MD ADULT MEDICINE [address] [address] Dept: [phone] Dept [1] Patient Active Problem List Diagnosis Raynaud's disease Hypothyroidism GERD (gastroesophageal reflux disease) GI bleed IBS (irritable bowel syndrome) Lymphocytic colitis Leukocytosis Tubular adenoma Chronic midline low back pain without sciatica Shingles Anxiety state Insomnia, unspecified Osteoporosis Polychondritis Right hip pain SLE (systemic lupus erythematosus) (CMS/HCC V24, CMS/HCC V28) Subacromial bursitis Allergic rhinitis Cataract Syncope and collapse Lung nodule Mild persistent asthma without complication Moderate persistent asthma without complication Lupus panniculitis Stage 3a chronic kidney disease (CMS/HCC V24, CMS/HCC V28) [2] Allergies Allergen Reactions Vancomycin Anaphylaxis and Itching Morphine Sulfate Nausea And Vomiting Ofloxacin Swelling Unknown reaction/family unable to define. Floxin Otic : EARS SWELLED Amoxicillin-Pot Clavulanate Diarrhea Egg Nausea And Vomiting & Albumen: SEVER ABDOMINAL PAIN Penicillins Sulfa (Sulfonamide Antibiotics) Other Jittery Bactrim [Sulfamethoxazole-Trimethoprim] JITTERY Butoconazole Nitrate WORSENING SYMPTOMS [3] Current Outpatient Medications Medication Sig Dispense Refill acetaminophen (TYLENOL 8 HOUR) 650 mg 8 hr tablet TAKE 1 TABLET BY MOUTH EVERY 8 HOURS NEEDED FOR PAIN 90 tablet 1 albuterol HFA (PROAIR HFA ; PROVENTIL HFA ; VENTOLIN HFA) 90 mcg/actuation inhaler Inhale 2 puffs by mouth every 4 (four) hours if needed for wheezing. into the lungs every 4 hours as needed for Cough, Wheezing or Shortness of Breath 6.7 g 2 alendronate (FOSAMAX) 70 mg tablet Take 1 tablet (70 mg total) by mouth. ONCE A WEEK calcium carbonate-vitamin D3 600 mg-5 mcg (200 unit) capsule Take by mouth. 1 tab po tid diclofenac (VOLTAREN) 1 % topical gel Apply 2 g topically 2 (two) times a day if needed (pain). 100g 3 dicyclomine (BENTYL) 20 mg tablet Take 1 tablet (20 mg total) by mouth 4 (four) times a day (beforemeals and nightly). 360 tablet 1 estradioL (ESTRACE) 0.01 % (0.1 mg/gram) vaginal cream PLACE 1 GRAM VAGINALLY TWICE A WEEK 42.5 g 1 fluticasone propionate (FLONASE) 50 mcg/actuation nasal spray SPRAY 2 SPRAYS BY NASAL ROUTE DAILY 16 mL 1 inhalat.spacing dev,large mask spacer Use with inhaler as needed levothyroxine (SYNTHROID, LEVOTHROID) 75 mcg tablet TAKE 1 TABLET BY MOUTH 1 TIME EACH DAY BEFORE BREAKFAST. 90 tablet 1 loratadine (CLARITIN) 10 mg tablet Take 1 tablet (10 mg total) by mouth 1 (one) time each day. LORazepam (ATIVAN) 0.5 mg tablet TAKE 1 TABLET BY MOUTH EVERY DAY AT BEDTIME NEEDED FOR INSOMNIA/ANXIETY 28 tablet 0 magnesium oxide 500 mg magnesium tablet Take 1 tablet by mouth 1 (one) time each day. meclizine (ANTIVERT) 12.5 mg tablet TAKE 1 TABLET BY MOUTH 3 TIMES DAILY NEEDED FOR VERTIGO 90 tablet 1 MULTIVITAMIN ORAL Take by mouth. ONE QD omeprazole (PriLOSEC) [address] capsule TAKE 1 CAPSULE BY MOUTH TWICE A DAY 180 capsule 1 Symbicort 160-4.5 mcg/actuation inhaler INHALE 2 PUFFS INTO THE LUNGS TWICE A DAY 10.2 each 4 traMADoL (ULTRAM) 50 mg tablet Take 1 tablet (50 mg total) by mouth 1 (one) time each day if neededfor severe pain. Max Daily Amount: 50 mg 28 tablet 0 traZODone (DESYREL) 100 mg tablet TAKE 1 TABLET BY MOUTH AT BEDTIME. (TAKE WITH 25MG FOR TOTAL NIGHTLY DOSE OF 125MG.) 90 tablet 1 traZODone (DESYREL) 50 mg tablet TAKE 1/2 TABLET (25 MG) BY MOUTH AT BEDTIME (WITH 100MG TOTAL 125MG) 45 tablet 1 cyclobenzaprine (FLEXERIL) 5 mg tablet Take 1 tablet (5 mg total) by mouth at bedtime as needed formuscle spasms. 90 tablet 1 No current facility-administered medications for this visit. [4] Past Medical History: Diagnosis Date Allergic rhinitis DX:Allergic rhinitis Anxiety state, unspecified 09/09/2005 DX:Anxiety state, unspecified Cataract DX:Cataract; COMMENT: bilat eyes GERD (gastroesophageal reflux disease) 02/21/2021 DX:GERD (gastroesophageal reflux disease) GI bleed 02/21/2021 DX:GI bleed; COMMENT: 01/25/2021 Transferred from [facility] to [facility]. Received multiple blood transfusions. Heartburn 09/09/2005 DX:Heartburn History of syncope 02/21/2021 DX:History of syncope; COMMENT: Described to have seizure-like activity. Highly suspected myoclonicjerking 2nd to orthostatic syncope event in setting of GI bleed. IBS (irritable bowel syndrome) 01/26/2006 DX:IBS (irritable bowel syndrome) Insomnia 08/28/2006 DX:Insomnia Irritable bowel syndrome 01/26/2006 DX:Irritable bowel syndrome Leukocytosis 02/21/2021 DX:Leukocytosis; COMMENT: During GI Bleed hospitalization 01/25/2021. Lumbago 09/09/2005 DX:Lumbago Lupus panniculitis 09/08/2005 DX:Lupus panniculitis Lymphocytic colitis 05/17/2008 DX:Lymphocytic colitis Osteoporosis 12/15/2017 DX:Osteoporosis 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 DX:Polychondritis Raynaud's disease 02/21/2021 DX:Raynaud's disease Shingles 09/2003 DX:Shingles SLE (systemic lupus erythematosus) ([facility] V24, [facility] V28) DX:SLE (systemic lupus erythematosus) ([facility]); COMMENT: Dr. Beltrán, Subacromial bursitis DX:Subacromial bursitis; COMMENT: R, injected by Dr Beltrán, 02/22 Systemic lupus erythematosus ([facility] V24, [facility] V28) 09/08/2005 DX:Systemic lupus erythematosus (HCC) Systemic lupus erythematosus ([facility] V24, [facility] V28) 09/08/2005 DX:Systemic lupus erythematosus (HCC) Tubular adenoma 2004 DX:Tubular adenoma Unspecified hypothyroidism 09/08/2005 DX:Unspecified hypothyroidism [5] Past Surgical History: Procedure Laterality Date BACK SURGERY PROCEDURE: HISTORICAL BACK SURGERY; COMMENT: x's 3 L3-L4 CHOLECYSTECTOMY 05/18 PROCEDURE: LA CHOLECYSTECTOMY COLONOSCOPY 12/2017 Dr. Vo, unremarkable (5yr -hx polyp) COLONOSCOPY 2013 Dr. Vo COLONOSCOPY 04/2008 Dr. Vo, nl with bx consistent with lymphocytic colitis ESOPHAGOGASTRODUODENOSCOPY 12/2017 Dr. Vo - unremarkable ESOPHAGOGASTRODUODENOSCOPY 01/2021 [place] as inpt for bleed - unremarkble per notes OTHER SURGICAL HISTORY 04/28/02 PROCEDURE: HISTORICAL TOTAL HYSTERECTOMY W/O BSO OTHER SURGICAL HISTORY 10/12/14 PROCEDURE: MYELOGRAM OF LOWER SPINE; COMMENT: L1-L5 [facility] TUBAL LIGATION PROCEDURE: HISTORICAL TUBAL LIGATION UPPER GASTROINTESTINAL ENDOSCOPY 10/20/02 PROCEDURE: LA UPPER GI ENDOSCOPY PERFORMED [6] Family History Problem Relation Name Age of Onset Other cancer Mother Throat; 50's Lung cancer Other (Other: Emphysema) Father 50 Other (Other: heart) Father No Known Problems Sister No Known Problems Sister No Known Problems Sister Thyroid disease Sister corinne Other (Other: anemia) Sister love No Known Problems Brother Hypertension Brother Hyperlipidemia Brother high No Known Problems Maternal Grandmother No Known Problems Maternal Grandfather No Known Problems Paternal Grandmother No Known Problems Paternal Grandfather No Known Problems Daughter No Known Problems Son No Known Problems Son No Known Problems Other Breast cancer Neg Hx documented in this encounter Plan of Treatment Upcoming Encounters Date Type Department Care Team (Late st Contact Info) Description 05/16/2025 2:30 PM EST Appointment [facility] Bone Density [address] [place] [id number] 06/27/2025 11:00 AM EDT [facility] [address] [place] [address] Bakari Medina MD [address] [place] [address] Scheduled Orders Name Type Priority Associated Diagnoses Orde r Schedule BD Bone Density DXA Axial Skeleton Imaging Routine Encounter for osteoporosis screening in asymptomatic postmenopausal patient Expected: 03/10/2025 (Approximate), Expires: 02/24/2026 Thyroid stimulating hormone with reflex to free t4 and free t3 Lab Routine Acquired hypothyroidism Expected: 03/27/2025, Expires: 02/24/2026 documented as of this encounter Goals Goal Patient Goal Type Associated Problems Recent Progress Patient-Stated? Author feel better General Yes Umair Solano, PT PT STG x 8 visits from [facility] on 12/28/2024 General No Umair Solano, PT Note: [x] = goal MET [] = goal NOT MET [] Pt will improve lumbar flexion to 60 degrees to allow dressing LE without assist, [] Pt will report average pain level decrease of 2 /10, [] Pt will increase sitting capacity to 90 minutes, [] Pt will be able to perform full bridge in order to improve bed mobility PT LTG x 16 visits from [facility] on 12/28/2024 General No Umair Solano PT Note: [x] = goal MET [] = goal NOT MET [] Pt will be able to stand fully erect immediately after sit to stand, [] Pt will require no LE support for sit to stand and car transfers [] Pt will be able to clean tub without having to rest due to back pain [] Pt will be able to go shopping x 2 hrs without having to lay down on heating pad once returned home documented as of this encounter Results * Drug abuse screen expanded with reflex confirmation, urine (02/24/2025 12:16 PM EST) Amphetamine Screen, Ur Negative Negative 4:34 PM EST [facility] Comment:Certain OTC medicati ons containing ephedrine, phenylephrine, pseudoephedrine and phenylpropanolamine can cause false positive results. Barbiturate Screen, Ur Negative Negative 4:34 PM [facility] Benzodiazepine Screen, Ur Negative Negative 02/24/2025 4:34 PM [facility] Cocaine Screen, Ur Negative Negative 2024 4:34 PM [facility] Opiate Screen, Ur Negative Negative 025 4:34 PM [facility] Cannabinoid (THC) Screen, Ur Negative Negative 02/24/2025 4:34 PM EST [facility] Comment:Specimens from patie nts taking pantoprazole sodium (Protonix) have been shown to produce false positive results. Fentanyl, Ur Negative Negative 02/24/2025 4:34 PM [facility] Oxycodone Screen, Ur Negative Negative 02/13 4:34 PM [facility] Urine Urine specimen obtained by clean catch procedure / Unknown Non-blood Collection / Unknown 02/24/2025 12:16 PM EST 02/24/2025 12:16 PM EST [facility] - 02/24/2025 4:34 PM EST Assay cutoffs: Amphetamines 1000 ng/mL Barbiturates 200 ng/mL Benzodiazepines 200 ng/mL Cocaine 300 ng/mL Fentanyl 1 ng/mL Opiates 300 ng/mL Oxycodone 100 ng/mL THC 50 ng/mL Semi-quantitative assay for screening purposes only. Unconfirmed screening result should not be used for non-medical purposes. *POSITIVE RESULTS ARE AUTOMATICALLY SENT FOR ALTERNATE METHOD CONFIRMATION* Bakari Medina MD LAB URINE ORDERABLES Final Result [facility] [address] [place] [address], [place] [phone] documented in this encounter Visit Diagnoses Diagnosis Urinary frequency- Primary Acquired hypothyroidism Unspecified hypothyroidism Moderate persistent asthma without complication Lung nodule Other diseases of lung, not elsewhere classified Stage 3a chronic kidney disease ([facility] V24, [facility] V28) Gastroesophageal reflux disease without esophagitis Esophageal reflux Lymphocytic colitis Other and unspecified noninfectious gastroenteritis and colitis Chronic midline low back pain without sciatica Age-related osteoporosis without current pathological fracture Anxiety disorder, unspecified type Encounter for subsequent annual wellness visit (AWV) in Medicare patient Need for vaccination against Streptococcus pneumoniae Encounter for osteoporosis screening in asymptomatic postmenopausal patient documented in this encounter Discontinued Medications Medication Sig Discontinue Reason Start Date End Da te LORazepam (ATIVAN) 0.5 mg tablet Take 1 tablet (0.5 mg total) by mouth 1 (one) time each day if needed for anxiety. Max Daily Amount: 0.5 mg 12/13/2024 02/24/2025 LORazepam (ATIVAN) 0.5 mg tablet Take 1 tablet (0.5 mg total) by mouth 1 (one) time each day if needed for anxiety. Max Daily Amount: 0.5 mg 01/12/2025 02/24/2025 predniSONE (DELTASONE) 20 mg tablet Take 1 tablet (20 mg total) by mouth 1 (one) time each day. 11/23/2024 02/24/2025 tiZANidine (ZANAFLEX) 4 mg capsule TAKE 1 CAPSULE BY MOUTH AT BEDTIME NEEDED FOR MUSCLE SPASMS. 10/10/2024 02/24/2025 albuterol HFA (PROAIR HFA ; PROVENTIL HFA ; VENTOLIN HFA) 90 mcg/actuation inhaler Inhale 2 puffs by mouth every 4 (four) hours if needed for wheezing. into the lungs every 4 hours as needed for Cough, Wheezing or Shortness of Breath Reorder 02/16/2025 02/24/2025 documented as of this encounter Orders Immunization/Injection Count Last Ordered Date First Ordered Date PNEUMOCOCCAL CONJUGATE 20 VA LENT (PREVNAR 20, PCV 20) 2MO AND OLDER 1 02/24/2025 documented in this encounter Additional Health Concerns Assessment Noted Time PHQ-9 Depression Total Score: 0 02/25/20 25 11:49 AM EST documented as of this encounter Care Teams Repair Supervisor Relationship Specialty Start Date End Date Bakari Medina MD [address] [place] [address] PCP - General Internal Medicine 06/26/21 documented as of this encounter
--- OUTSIDE RECORDS SUMMARY | 2025-02-24 12:15 | XMS_ITS | Encounter Summary ---
Author Organization [facility] [place] [address] Care Team Providers Care Room Cooler Installer Name Role Phone Bakari Medina MD Primary Care Provider [phone] Encounter Details Date Type Department Care Team ([facility] Contact Info) Description 02/24/2025 12:15 PM EST Lab Draw Station [address] [address] Chronic midline low back pain without sciatica; Anxiety disorder, unspecified type; Urinary frequency Social History Tobacco Use Types Packs/Day Years [...] care for your loved ones. For example, child care cook or elderly care for an older adult? [...] as of this encounter Plan of Treatment Upcoming Encounters Date Type Department Care Team (Late st Contact Info) Description 05/16/2025 2:30 PM EST Appointment [facility] Bone Density [address] [place] [address] 06/27/2025 11:00 AM EDT Office Visit Adult Medicine [address] [address] Bakari Medina MD [address] [place] [address] documented as of this encounter Goals Goal Patient Goal Type Associated Problems Recent Progress Patient-Stated? Author feel better General Yes Umair Solano M, PT PT STG x 8 visits from [facility] on 12/28/2024 General No RussUmair saba M, PT Note: [x] = goal MET [] [...] mobility PT LTG x 16 visits from [facility] on 12/28/2024 General No RussUmair saba M, PT Note: [x] = goal MET [] [...] returned home documented as of this encounter Procedures Procedure Name Priority Date/Time Associated Diagnosis Comments URINALYSIS WITH REFLEX MICROSCOPIC AND CULTURE Routine 02/24/2025 12:16 PM EST Urinary frequency MAXWELL URINE CULTURE TUBE Routine 02/24/2025 12:16 PM EST Urinary frequency DRUG ABUSE SCREEN EXPANDED WITH REFLEX CONFIRMATION, URINE Routine 02/24/2025 12:16 PM EST Chronic midline low back pain without sciatica Anxiety disorder, unspecified type URINALYSIS WITH REFLEX MICROSCOPIC AND CULTURE Routine 02/24/2025 12:16 PM EST Urinary frequency documented in this encounter Results * Maxwell urine culture tube (02/24/2025 12:16 PM EST) Extra Tube Hold for add-ons. 02/24/2025 2:01 PM [facility] Comment:Auto resulted. Urine Urine specimen obtained by clean catch procedure / Unknown Non-blood Collection / Unknown 02/24/2025 12:16 PM EST 02/24/2025 12:16 PM EST us Bakari Medina MD LAB URINE ORDERABLES Final Result [facility] [address] [place] [address], [place] [phone] * Urinalysis with reflex microscopic and culture (02/24/2025 12:16 PM EST) Pathologist [facility] Specific [employer] Urine 1.006 1.003 - 1.030 LAB URINALYSIS - AUTOMATED METHOD 02/24/2025 2:08 PM [facility] pH, Urine 6.0 5.0 - 8.0 pH LAB URINALYSIS - AUTOMATED METHOD 02/24/2025 2:08 PM [facility] Leukocytes, Urine Negative Negative LAB URINALYSIS - AUTOMATED METHOD 02/24/2025 2:08 PM [facility] Nitrite, Urine Negative Negative LAB URINALYSIS - AUTOMATED METHOD 02/24/2025 2:08 PM [facility] Protein, Urine Negative <=Trace mg/dL LAB URINALYSIS - AUTOMATED METHOD 02/24/2025 2:08 PM [facility] Glucose, Urine Negative Negative mg/dL LAB URINALYSIS - AUTOMATED METHOD 02/24/2025 2:08 PM [facility] Ketones, Urine Negative Negative mg/dL LAB URINALYSIS - AUTOMATED METHOD 02/24/2025 2:08 PM [facility] Urobilinogen, Urine 0.2 0.2 - 1.0 mg/dL LAB URINALYSIS - AUTOMATED METHOD 02/24/2025 2:08 PM [facility] Bilirubin, Urine Negative Negative LAB URINALYSIS - AUTOMATED METHOD 02/24/2025 2:08 PM [facility] Blood, Urine Negative Negative LAB URINALYSIS - AUTOMATED METHOD 02/24/2025 2:08 PM [facility] Urine Urine specimen obtained by clean catch procedure / Unknown Non-blood Collection / Unknown 02/24/2025 12:16 PM EST 02/24/2025 12:16 PM EST us Bakari Medina MD LAB URINE ORDERABLES Final Result [facility] [address] [place] [address], [place] [phone] * Drug abuse screen expanded with reflex confirmation, urine (02/24/2025 12:16 PM EST) Amphetamine Screen, Ur Negative Negative 4:34 PM [facility] Comment:Certain OTC medicati ons containing ephedrine, phenylephrine, pseudoephedrine and phenylpropanolamine can cause false positive results. Barbiturate Screen, Ur Negative Negative 4:34 PM [facility] Benzodiazepine Screen, Ur Negative Negative 02/24/2025 4:34 PM [facility] Cocaine Screen, Ur Negative Negative 2024 4:34 PM [facility] Opiate Screen, Ur Negative Negative 025 4:34 PM [facility] Cannabinoid (THC) Screen, Ur Negative Negative 02/24/2025 4:34 PM [facility] Comment:Specimens from patie nts taking pantoprazole sodium (Protonix) have been shown to produce false positive results. Fentanyl, Ur Negative Negative 02/24/2025 4:34 PM [facility] Oxycodone Screen, Ur Negative Negative 02/13 4:34 PM EST [facility] Urine Urine specimen obtained by clean catch procedure / Unknown Non-blood Collection / Unknown 02/24/2025 12:16 PM EST 02/24/2025 12:16 PM EST Narrative [facility] - 02/24/2025 4:34 PM EST Assay [...] Medina MD LAB URINE ORDERABLES Final Result [facility] [address] [place] [address], documented in this encounter Visit Diagnoses Diagnosis Chronic midline low back pain without sciatica Anxiety disorder, unspecified type Urinary frequency documented in this encounter Additional Health Concerns Assessment Noted Time PHQ-9 Depression Total Score: 0 02/25/20 25 11:49 AM EST documented as of this encounter Care Teams Room Cooler Installer Relationship Specialty Start Date End Date Bakari Medina MD [address] [place] [address] PCP - General Internal Medicine 06/26/21 documented as of this encounter
--- NOTE | 2025-03-01 10:06 | MHC.OFFVIS ---
Vital Signs 03/01/25 10:07 Height 5 ft 3 in Weight 150 lb 12.739 oz BMI 26.7 BP 112/70 Blood Pressure Location Rt brachial Position Sitting Pulse 72 Pulse Source Pulse Oximeter Pulse Oximetry (%) 99 Oxygen Delivery Method Room Air Intake Visit Reasons: follow up Intake Note: Patient presents for follow up on arthritis and bursitis. Accompanied by: Self / Same As Patient Allergies vancomycin (VANCOMYCIN) Allergy (Severe, Verified 11/15/24 15:42) ANAPHYLAXIS amoxicillin (From AUGMENTIN) Allergy (Intermediate, Verified 11/15/24 15:42) DIARRHEA clavulanic acid (From AUGMENTIN) Allergy (Intermediate, Verified 11/15/24 15:42) DIARRHEA egg (EGG) Allergy (Intermediate, Verified 11/15/24 15:42) ABD PAIN morphine (MORPHINE) Allergy (Intermediate, Verified 11/15/24 15:42) VOMITING ofloxacin (From FLOXIN) Allergy (Mild, Verified 11/15/24 15:42) WORSENING EAR SX Sulfa (Sulfonamide Antibiotics) Allergy (Mild, Verified 11/15/24 15:42) Unknown sulfamethoxazole (From BACTRIM) Allergy (Mild, Verified 11/15/24 15:42) JITTERY trimethoprim (From BACTRIM) Allergy (Mild, Verified 11/15/24 15:42) JITTERY EGGS Allergy (Unknown, Uncoded 11/15/24 15:42) Unknown POLLEN MOLD Allergy (Unknown, Uncoded 11/15/24 15:42) Unknown HPI HPI follow up: Details: Worsening right hip pain for the last month. She had to delay her appointment. She has been experiencing more pain in her hands and feet. No new joint swelling. PFSH Medical History Hypothyroidism FH: cholecystectomy Cook's neuroma Osteoarthritis Raynauds disease Osteopenia Lymphocytic colitis Polychondritis Vipul's thyroiditis Lupus profundus Surgical History H/O shoulder surgery H/O: hysterectomy History of back surgery Family History Mother Lung cancer Father Heart problem Social History Alcohol intake: former Patient Tobacco Use Status: Never used Tobacco Physical Exam Vital Signs: Last Vital Signs Pulse 72 03/01/25 10:07 BP 112/70 03/01/25 10:07 Pulse Ox 99 03/01/25 10:07 Oxygen Delivery Method Room Air 03/01/25 10:07 BMI result Body Mass Index 26.7 Const Other: General: Comfortable Skin: No lesions seen MSK: She has a nodule proximal to radial carpal joint along the 3rd extensor tendon. No pain on palpation of nodule. No tenderness of any joints. Heberden's nodes present. Subluxation of DIPJ. R trochanteric bursa tenderness found. Normal range of motion of hip. Office Procedures AMB Joint Injection/Aspiration Joint Injection/Aspiration Details: Right trochanteric bursa Prep: site was prepped using aseptic technique Injected: 40 mg of, Kenalog, with 1 mL of and 1% plain lidocaine Procedure: Informed verbal consent was obtained. The patient tolerated the procedure well. Postprocedure protocol was discussed with patient. Coding 22408 - Large joint Procedure code (CPT) selection complete Office Meds lidocaine (PF) 10 mg/mL (1 %) injection solution Performing Provider: Amilcar Kan MD Performing Location: [facility] Administered by: Amilcar Kan MD on 03/01/25 11:31 Dose Route Admin Location Dispensed Lot Number Expiration Date [facility] Cushion Builder 1 mL Infiltration right hip 2 mL [id number] 08/13/26 69748-568-41 [employer] Total Dispensed Waste 2 mL 50 % Kenalog 40 mg/mL suspension for injection Performing Provider: Amilcar Kan MD Performing Location: [facility] Administered by: Amilcar Kan MD on 03/01/25 11:31 Dose Route Admin Location Dispensed Lot Number Expiration Date [facility] C[employer]ion Builder 40 mg intrabursal right hip 1 mL [id number] 09/12/26 [address]-2 [employer] Total Dispensed Waste 1 mL 0 % Assessment & Plan Assessment & Plan (1) Trochanteric bursitis: Comment: Right recurrent. Right. Code(s): M70.60 - Trochanteric bursitis, unspecified hip Category: Medical Qualifiers: Laterality: right Qualified Code(s): M70.61 - Trochanteric bursitis, right hip Plan: Patient received right trochanteric bursa cortisone injection this visit Continue home exercise program. High co-pay for PT. Return to clinic in 3 months (2) Osteoarthritis, hand: Comment: Clinical diagnosis. Symptomatic. Code(s): M19.049 - Primary osteoarthritis, unspecified hand Category: Medical Qualifiers: Laterality: bilateral Osteoarthritis type: primary Qualified Code(s): M19.041 - Primary osteoarthritis, right hand; M19.042 - Primary osteoarthritis, left hand Plan: Apply diclofenac gel 1% to affected area every 4-6 hours as needed Exercises printed for patient. She has high co-pay with PT/OT Return to clinic in 3 months (3) Nodule of skin of right hand: Comment: Unclear etiology. Nonpainful. X-ray revealed degenerative changes. No specific pathology contributing to nodule. Code(s): R22.31 - Localized swelling, mass and lump, right upper limb Category: Medical Plan: Monitor clinically Return to clinic in 3 months (4) Foot pain, bilateral: Comment: Intermittent. She recently received insert from military pilot to help support subluxation of her toes. Code(s): M79.671 - Pain in right foot; M79.672 - Pain in left foot Category: Medical Plan: Continue to wear supportive footwear and insert provided by military pilot Follow up with military pilot as needed Continue diclofenac gel 1% applied to affected area PRN pain Return to clinic in 3 months Orders: Orders AMB Joint Injection/Aspiration Today M70.61 - Trochanteric bursitis, right hip Coding Level of Care Code Est Pt Level 4 (37444) Add On Problem Visit Only Diagnoses Trochanteric bursitis of right hip M70.61 Laterality: right Primary osteoarthritis of both hands M19.041; M19.042 Laterality: bilateral Osteoarthritis type: primary Nodule of skin of right hand R22.31 Foot pain, bilateral M79.671; M79.672 CPT Codes Coding - Large joint: 72881 - Large joint ([id number])
[2025-03-01 10:07] VITALS: BP 112/70; PULSE 72; O2SAT 99; BMI 26.7
--- OUTSIDE RECORDS SUMMARY | 2025-03-01 12:18 | XMS_ITS | Clinical Summary ---
Author Organization [facility] Address [address] [place] [address] Phone Care Team Providers Care Hazardous Material Technician Name Role Phone Bakari Medina MD Primary [...] 01/25/2021 J[place]y Vancomycin Anaphylaxis,Itching High 06/19/2016 Medications alendronate (FOSAMAX) 70 mg tablet Take 1 tablet (70 mg total) by mouth. ONCE A WEEK 04/21/19 24 Active calcium carbonate-geraldo min D3 600 mg-5 mcg (200 unit) capsule Take by mouth. 1 tab po tid Active loratadine (CLARITIN) 10 mg tablet Take 1 tablet (10 mg total) by mouth 1 (one) time each day. Active MULTIVITAMIN ORAL Take by mouth. ONE QD Active inhalat.spacin g dev,large mask spacer Use with inhaler as needed 09/23/19 20 Active magnesium oxide 500 mg magnesium tablet Take 1 tablet by mouth 1 (one) time each day. 02/05/20 24 Active fluticasone propionate (FLONASE) 50 mcg/actuation nasal spray SPRAY 2 SPRAYS BY NASAL ROUTE DAILY 16 mL 1 06/01/19 25 Active diclofenac (VOLTAREN) 1 % topical gel Apply 2 g topically 2 (two) times a day if needed (pain). 100 g 3 10/01/19 25 Active dicyclomine (BENTYL) 20 mg tablet [...] DAY 180 capsule 1 11/10/19 25 Active acetaminophen (TYLENOL 8 HOUR) 650 mg 8 hr tablet TAKE 1 TABLET BY MOUTH EVERY 8 HOURS NEEDED FOR PAIN 90 tablet 1 11/16/19 25 Active levothyroxine (SYNTHROID, LEVOTHROID) 75 mcg tablet TAKE 1 TABLET BY MOUTH 1 TIME EACH DAY BEFORE BREAKFAST. 90 tablet 1 12/06/19 25 Active estradioL (ESTRACE) 0.01 % (0.1 mg/gram) vaginal cream PLACE 1 GRAM VAGINALLY TWICE A WEEK 42.5 g 1 12/08/19 25 Active traZODone (DESYREL) 100 mg tablet TAKE 1 TABLET BY MOUTH AT BEDTIME. (TAKE WITH 25MG FOR TOTAL NIGHTLY DOSE OF 125MG.) 90 tablet 1 01/24/20 25 Active Symbicort 160-4.5 mcg/actuation inhaler INHALE 2 PUFFS INTO THE LUNGS TWICE A DAY 10.2 each 4 02/17/20 25 Active traMADoL (ULTRAM) 50 mg tablet Take 1 tablet (50 mg total) by mouth 1 (one) time each day if needed for severe pain. Max Daily Amount: 50 mg 28 tablet 02/17/20 25 Active LORazepam (ATIVAN) 0.5 mg tablet TAKE 1 TABLET BY MOUTH EVERY DAY AT BEDTIME NEEDED FOR INSOMNIA/ANXI ETY 28 tablet 02/21/20 25 Active meclizine (ANTIVERT) 12.5 mg tablet TAKE 1 TABLET BY MOUTH 3 TIMES DAILY NEEDED FOR VERTIGO 90 tablet 1 02/24/20 25 Active albuterol HFA (PROAIR HFA ; PROVENTIL HFA ; VENTOLIN HFA) 90 mcg/actuation inhaler Inhale 2 puffs by mouth every 4 (four) hours if needed for wheezing. into the lungs every 4 hours as needed for Cough, Wheezing or Shortness of Breath 6.7 g 2 02/25/20 25 Active cyclobenzaprin e (FLEXERIL) 5 mg tabletIndicati ons:Chronic midline low back pain without sciatica Take 1 tablet (5 mg total) by mouth at bedtime as needed for muscle spasms. 90 tablet 1 02/25/20 25 Active albuterol HFA (PROAIR HFA ; PROVENTIL HFA ; VENTOLIN HFA) 90 mcg/actuation inhaler Inhale 2 puffs by mouth. into the lungs every 4 hours as needed for Cough, Wheezing or Shortness of Breath 02/17/20 23 025 Discontinued(Re order) budesonide-for moteroL (SYMBICORT) 160-4.5 mcg/actuation inhaler Inhale 2 puffs by mouth. into the lungs 2 times daily. 02/17/20 23 025 Discontinued meclizine (ANTIVERT) 12.5 mg tablet Take 1 tablet (12.5 mg total) by mouth. 3 TIMES DAILY NEEDED FOR VERTIGO 04/09/19 19 025 Discontinued tiZANidine (ZANAFLEX) 4 mg capsule TAKE 1 CAPSULE BY MOUTH AT BEDTIME NEEDED FOR MUSCLE SPASMS. 30 capsule 3 10/11/19 25 025 Discontinued predniSONE (DELTASONE) 20 mg tablet Take 1 tablet (20 mg total) by mouth 1 (one) time each day. 7 each 11/24/19 25 025 Discontinued LORazepam (ATIVAN) 0.5 mg tablet Take 1 tablet (0.5 mg total) by mouth 1 (one) time each day if needed for anxiety. Max Daily Amount: 0.5 mg 28 tablet 12/14/19 25 025 Discontinued traMADoL (ULTRAM) 50 mg tablet Take 1 tablet (50 mg total) by mouth 1 (one) time each day if needed for severe pain. Max Daily Amount: 50 mg 28 tablet 01/05/20 25 025 Discontinued(Re order) LORazepam (ATIVAN) 0.5 mg tablet Take 1 tablet (0.5 mg total) by mouth 1 (one) time each day if needed for anxiety. Max Daily Amount: 0.5 mg 28 tablet 01/13/20 25 025 Discontinued albuterol HFA (PROAIR HFA ; PROVENTIL HFA ; VENTOLIN HFA) 90 mcg/actuation inhaler Inhale 2 puffs by mouth every 4 (four) hours if needed for wheezing. into the lungs every 4 hours as needed for Cough, Wheezing or Shortness of Breath 6.7 g 02/17/20 25 025 Discontinued(Re order) meclizine (ANTIVERT) 12.5 mg tablet TAKE 1 TABLET BY MOUTH 3 TIMES DAILY NEEDED FOR VERTIGO 90 tablet 1 02/22/20 25 025 Discontinued Active Problems Problem Noted Date Diagnosed Date Stage 3a chronic kidney disease 09/29/2024 Assessment & Plan (02/24/2025 12:38 PM EST): SLE (systemic lupus erythematosus) 05/07/2023 Overview (05/07/2023): Dr. Beltrán, Subacromial bursitis 05/07/2023 Overview (05/07/2023): R, injected by Dr Beltrán, 02/22 Lung nodule 06/20/2022 Assessment & Plan (02/24/2025 12:38 PM EST): Mild persistent asthma without complication 09/2022 Chronic midline low back pain without sciatica 0 09/02/2021 Assessment & Plan (02/24/2025 12:38 PM EST): Orders: Drug abuse screen expanded with reflex confirmation, urine; Future cyclobenzaprine (FLEXERIL) 5 mg tablet; Take 1 tablet (5 mg total) by mouth at bedtime as needed for muscle spasms. Right hip pain 09/02/2021 Moderate persistent asthma without complication 09/02/2021 Assessment & Plan (02/24/2025 12:38 PM EST): Raynaud's disease 02/21/2021 GI bleed 02/21/2021 Overview (05/07/2023): 01/25/2021 Transferred from [facility] to [facility]. Received multiple blood transfusions. Leukocytosis 02/21/2021 Overview (05/07/2023): During GI Bleed hospitalization 01/25/2021. 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 Allergic rhinitis 02/21/2021 Syncope and collapse 01/25/2021 Osteoporosis 12/15/2017 Assessment & Plan (02/24/2025 12:38 PM EST): Lymphocytic colitis 06/07/2008 Assessment & Plan (02/24/2025 12:38 PM EST): Assessment & Plan (03/30/2024 9:49 AM EST): Assessment & Plan (02/18/2024 4:00 PM EST): Add a second imodium daily Cataract 06/07/2008 Overview (05/07/2023): Bilat eyes Insomnia, unspecified 08/28/2006 IBS (irritable bowel syndrome) 01/26/2006 GERD (gastroesophageal reflux disease) 6 Assessment & Plan (02/24/2025 12:38 PM EST): Anxiety state 09/09/2005 Overview (12/15/2023): ANXIETY Hypothyroidism 09/08/2005 Assessment & Plan (02/24/2025 12:38 PM EST): Orders: Thyroid stimulating hormone with reflex to free t4 and free t3; Future Lupus panniculitis 09/08/2005 Tubular adenoma 03/16/2004 Shingles 09/14/2003 Overview (12/15/2023): History of shingles Encounters Date Type Department Care Team Description 02/24/2025 12:15 PM EST Lab Draw Station - [address] Chronic midline low back pain without sciatica; Anxiety disorder, unspecified type; Urinary frequency 02/24/2025 11:30 AM EST Office Visit Adult [address] [phone] Bakari Medina MD Urinary frequency (Primary Dx); Acquired hypothyroidism; Moderate [...] for osteoporosis screening in asymptomatic postmenopausal patient 02/24/2025 Results Follow-Up Adult Medicine [address] [phone] Bakari Medina MD 02/24/2025 Telephone Adult Medicine [address] [phone] Bakari Medina MD 02/12/2025 Results Follow-Up Adult [address] [phone] Bakari Medina MD 02/10/2025 12:50 PM EST Lab Draw Station - [address] 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 11:30 AM EDT Evaluation [address] [place] [address] Umair Solano M, PT Low back pain, unspecified back pain laterality, unspecified chronicity, unspecified whether sciatica present (Primary Dx); Encounter related to worker's compensation claim 12/16/2024 Telephone Adult Medicine [facility] [address] [place] [id number] Bakari Medina MD from Last 3 Months Immunizations Immunization Administration Dates Next Due Moderna SARS-CoV-2 COVID-19, mRNA, LNP-S, preservative free 01/14/2021 Pneumococcal conjugate 20 va lent (Prevnar 20, PCV 20) 2mo and older 02/24/2025 Td Tetanus diptheria (Tdvax) 7yo and older 04/22 Tdap Tetanus diptheria acell ular pertussis (Boostrix; Adacel) 7yo and older 09/02/2021,06/25/2011 Surgical History Surgery Date Site/Laterality Comments BACK SURGERY PROCEDURE: HISTORICAL BACK SURGERY; COMMENT: x's 3 L3-L4 OTHER SURGICAL HISTORY 04/28/02 PROCEDURE: HISTORICAL TOTAL HYSTERECTOMY W/O BSO CHOLECYSTECTOMY 05/18 PROCEDURE: UT CHOLECYSTECTOMY UPPER GASTROINTESTINAL ENDOSCOPY 10/20/02 PROCEDURE: UT UPPER GI ENDOSCOPY PERFORMED TUBAL LIGATION PROCEDURE: HISTORICAL TUBAL LIGATION OTHER SURGICAL HISTORY 10/12/14 PROCEDURE: MYELOGRAM OF LOWER SPINE; COMMENT: L1-L5 [facility] COLONOSCOPY 12/14/2017 - 01/13/2018 Dr. Vo, unremarkable (5yr -hx polyp) COLONOSCOPY 03/16/2013 - 03/15/2014 Dr. Vo COLONOSCOPY 04/16/2008 - 05/13/2008 Dr. Vo, nl with bx consistent with lymphocytic colitis ESOPHAGOGASTRODUODENOSCOPY 12/14/2017 - 01/13/2018 Dr. Vo - unremarkable ESOPHAGOGASTRODUODENOSCOPY 01/14/2021 - 02/12/2021 [place] as inpt for bleed - unremarkble per notes Medical History Medical History Date Comments Systemic lupus erythematosus (CMS/HCC V24, CMS/HCC V28) 09/08/2005 DX:Systemic lupus erythemato martin (HCC) Systemic lupus erythematosus (CMS/HCC V24, CMS/HCC V28) 09/08/2005 DX:Systemic lupus erythemato martin ([facility]) Unspecified hypothyroidism 09/08/2005 DX:Un specified hypothyroidism Anxiety state, unspecified 09/09/2005 DX:An xiety state, unspecified Heartburn 09/09/2005 DX:Heartburn Lumbago 09/09/2005 DX:Lumbago Irritable bowel syndrome 01/26/2006 DX:Irri table bowel syndrome Lymphocytic colitis 05/17/2008 DX:Lymphocyt ic colitis Cataract DX:Cataract; COM MENT: bilat eyes Allergic rhinitis DX:Allergic rh initis Tubular adenoma 2004 DX:Tubular adeno ma Shingles 09/2003 DX:Shingles SLE (systemic lupus erythema tosus) ([facility] V24, [facility] V28) DX:SLE (systemic lupus eryt hematosus) ([facility]); COMMENT: Dr. Beltrán, Subacromial bursitis DX:Subacrom ial bursitis; COMMENT: R, injected by Dr Beltrán, 02/22 Lupus panniculitis 09/08/2005 DX:Lupus pann iculitis GI bleed 02/21/2021 DX:GI bleed; COM MENT: 01/25/2021 Transferred from [facility] to [facility]. Received multiple blood transfusions. Polychondritis [...] care for your loved ones. For example, special needs child caregiver or elderly care for an older adult? [...] F) 02/24/2025 11:40 AM EST Respiratory Rate 16 09/30/2024 1:55 PM EDT Oxygen Saturation 97% 05/25/2024 1:27 PM EDT Inhaled Oxygen Concentration - - Weight 68 kg (150 lb) 02/24/2025 11:40 AM EST Height 160 cm (5' 3 ) 02/24/2025 11:40 AM EST Body Mass Index 26.57 02/24/2025 11:40 AM EST Plan of Treatment Upcoming Encounters Date Type Department Care Team (Late st Contact Info) Description 05/16/2025 2:30 PM EST Appointment [facility] Bone Density [address] [place] [address] 06/27/2025 11:00 AM EDT Office Visit Adult Medicine [address] [phone] Bakari Medina MD [address], [place] Health Maintenance Due Date Last Done Comments Naloxone Order 1950 Non-Opioid Controlled Substance Agreement 1950 Opioid Substance Agreement 1950 Pain Assessment 1950 RSV Immunization Adult Patients (1 - Risk 50-74 years 1-dose series) 2001 Zoster Vaccines (1 of 2) 2001 COVID-19 Vaccine ( - season) 2024 01/14/2021, 06/07/2020, 05/10/2020 Influenza Vaccine (#1) 2024 Drug Screen 02/24/2026 02/24/2025, 09/30/2024 Falls Risk Assessment 02/24/2026 02/24/2025, 023 Medicare Annual Wellness Visit 02/24/2026 02/24/2025 Social Influencers of Health Screening 02/24/2026 02/24/2025 Breast Cancer Screening 10/18/2026 10/19/19, 09/30/2023, 09/30/2023, Additional history exists Osteoporosis Screening (Bone Density Screening) 12/10/2027 12/09/2017 Cholesterol Screening (Lipid Panel) 02/17/2028 02/16/2023 Colorectal Cancer Screening: Colonoscopy 04/12/2029 04/12/2024, 03/31/2024, 01/05/2018 DTaP,Tdap,and Td Vaccines (4 - Td or Tdap) 09/03/2031 09/02/2021, 06/25/2011, 04/22/2001 Hepatitis C Screening Completed 07/18/2013 Depression Screening Completed 02/24/2025, 09/15/19 24 Pneumococcal Vaccine: 50+ Years Completed 02/24/2025 HIB Vaccines Aged Out No longer eligi [...] on patient's age to complete this topic Goals Goal Patient Goal Type Associated Problems Recent Progress Patient-Stated? Author feel better General Yes Umair Solano PT PT STG x 8 visits from [facility] on 12/28/2024 General No Umair Solano PT [...] mobility PT LTG x 16 visits from [facility] on 12/28/2024 General No Umair Solano, PT [...] down on heating pad once returned home Procedures Procedure Name Priority Date/Time Associated Diagnosis Comments MAXWELL URINE CULTURE TUBE Routine 02/24/2025 12:16 PM EST Urinary frequency URINALYSIS WITH REFLEX MICROSCOPIC AND CULTURE Routine 02/24/2025 12:16 PM EST Urinary frequency URINALYSIS WITH REFLEX MICROSCOPIC AND CULTURE Routine 02/24/2025 12:16 PM EST Urinary frequency DRUG ABUSE SCREEN EXPANDED WITH REFLEX CONFIRMATION, URINE Routine 02/24/2025 12:16 PM EST Chronic midline low back pain without sciatica Anxiety disorder, unspecified type THYROID STIMULATING HORMONE WITH REFLEX TO FREE T4 AND FREE T3 Routine 02/10/2025 12:51 PM EST Myxedema heart disease EXTERNAL CLINICAL LAB 12/21/2024 MG MAMMO DIGITAL SCREENING W WILI BILAT Routine 10/18/2024 3:46 PM EDT Encounter for screening mammogram for breast cancer EXTERNAL COLONOSCOPY REPORT Routine 04/12/2024 5:08 PM EST HM DEPRESSION SCREENING Routine 09/15/2023 LIPID PANEL Routine 02/16/2023 DXA BONE DENSITY STUDY 1+ SITS AXIAL SKEL Routine 12/09/2017 12:14 PM EDT Encounter for screening for osteoporosis HM HEPATITIS C SCREENING Routine 07/18/2013 from Last 3 Months or Most Recently Relevant to Health Maintenance Results * Urinalysis with reflex microscopic and culture (02/24/2025 12:16 PM EST) Specific [place] Urine 1.006 1.003 - 1.030 LAB URINALYSIS - AUTOMATED METHOD 02/24/2025 2:08 PM [facility] pH, Urine 6.0 5.0 - 8.0 pH LAB URINALYSIS - AUTOMATED METHOD 02/24/2025 2:08 PM [facility] Leukocytes, Urine Negative Negative LAB URINALYSIS - AUTOMATED METHOD 02/24/2025 2:08 PM [facility] Nitrite, Urine Negative Negative LAB URINALYSIS - AUTOMATED METHOD 02/24/2025 2:08 PM [facility] Protein, Urine Negative <=Trace mg/dL LAB URINALYSIS - AUTOMATED METHOD 02/24/2025 2:08 PM [facility] Glucose, Urine Negative Negative mg/dL LAB URINALYSIS - AUTOMATED METHOD 02/24/2025 2:08 PM [facility] Ketones, Urine Negative Negative mg/dL LAB URINALYSIS - AUTOMATED METHOD 02/24/2025 2:08 PM [facility] Urobilinogen, Urine 0.2 0.2 - 1.0 mg/dL LAB URINALYSIS - AUTOMATED METHOD 02/24/2025 2:08 PM [facility] Bilirubin, Urine Negative Negative LAB URINALYSIS - AUTOMATED METHOD 02/24/2025 2:08 PM [facility] Blood, Urine Negative Negative LAB URINALYSIS - AUTOMATED METHOD 02/24/2025 2:08 PM [facility] Urine Urine specimen obtained by clean catch procedure / Unknown Non-blood Collection / Unknown 02/24/2025 12:16 PM EST 02/24/2025 12:16 PM EST us Bakari Medina MD LAB URINE ORDERABLES Final Result Performing Organization Address City/[facility]/ZIP Co de Phone Number [facility] [address] [place] [address], * Maxwell urine culture tube (02/24/2025 12:16 PM EST) Extra Tube Hold for add-ons. 02/24/2025 2:01 PM EST [facility] Comment:Auto resulted. Urine Urine specimen obtained by clean catch procedure / Unknown Non-blood Collection / Unknown 02/24/2025 12:16 PM EST 02/24/2025 12:16 PM EST us Bakari Medina MD LAB URINE ORDERABLES Final Result [facility] [address] [place] [address], [place] [phone] * Drug abuse screen expanded with reflex confirmation, urine (02/24/2025 12:16 PM EST) Amphetamine Screen, Ur Negative Negative 4:34 PM EST [facility] Comment:Certain OTC medicati ons containing ephedrine, phenylephrine, pseudoephedrine and phenylpropanolamine can cause false positive results. Barbiturate Screen, Ur Negative Negative 4:34 PM EST [facility] Benzodiazepine Screen, Ur Negative Negative 02/24/2025 4:34 PM [facility] Cocaine Screen, Ur Negative Negative 2024 4:34 PM [facility] Opiate Screen, Ur Negative Negative 4:34 PM [facility] Cannabinoid (THC) Screen, Ur Negative Negative 02/24/2025 4:34 PM EST [facility] Comment:Specimens from patie nts taking pantoprazole sodium (Protonix) have been shown to produce false positive results. Fentanyl, Ur Negative Negative 02/24/2025 4:34 PM [facility] Oxycodone Screen, Ur Negative Negative 02/13 4:34 PM [facility] Urine Urine specimen obtained by clean catch procedure / Unknown Non-blood Collection / Unknown 02/24/2025 12:16 PM EST 02/24/2025 12:16 PM EST [facility] - 02/24/2025 4:34 PM EST Assay [...] URINE ORDERABLES Final Result Performing Organization Address [facility]/ZIP Co de Phone Number [facility] [address] [place] [address], [place] [phone] * Thyroid stimulating hormone with reflex to free t4 and free t3 (02/10/2025 12:51 PM EST) TSH 0.70 0.40 - 4.00 mcIU/mL 02/10/2025 4:52 PM EST [facility] Blood Venous blood specimen / Unknown Venipuncture / Unknown 02/10/2025 12:51 PM EST 02/10/2025 12:51 PM EST Bakari Medina MD LAB BLOOD ORDERABLES Final Result Performing Organization Address [facility] [[email or web address]] Co de Phone Number [facility] [address] [place] [address], [place] [phone] * External clinical lab (12/21/2024) Provider [facility] LAB BLOOD ORDERABLES Fin al Result * MG Mammo Digital Screening w Wili bilat (10/18/2024 3:46 PM EDT) Anatomical Region Laterality Modality Breast Bilateral Mammography 10/19/2024 2:32 PM EDT Impressions 10/19/2024 2:36 PM EDT Benign. BI-RADS CATEGORY: 2 - BENIGN RECOMMENDATION: Screening bilateral mammogram is recommended in 1 year. Mammo Location: [facility], [address] [place] [address], [address], . -------- FINAL REPORT -------- Dictated By: Adore Mendez Dictated Date: 10/19/2024 14:32 ET Assigned Physician: Adore Mendez Reviewed and Electronically Signed By: Adore Mendez Signed Date: 10/19/2024 14:36 ET Workstation ID: [id number] Transcribed By: Self Edit Transcribed Date: 10/19/2024 [...] is recommended in 1 year. Mammo Location: [facility], [address] [place] [address], [id number], . -------- FINAL REPORT -------- Dictated By: Adore Mendez Dictated Date: 10/19/2024 14:32 ET Assigned Physician: Adore Mendez Reviewed and Electronically Signed By: Adore Mendez Signed Date: 10/19/2024 14:36 ET Workstation ID: [id number] Transcribed By: Self Edit Transcribed Date: 10/19/2024 14:32 ET Bakari Medina MD IMG BI PROCEDURES Final Res ult * External Colonoscopy Report (04/12/2024 5:08 PM EST) Anatomical Region Laterality Modality Endoscopy Historical Provider GI~PROCEDURE ORDERABLES F inal Result * Depression Screening (09/15/2023) Depression Screening Abstracted Historical Provider HEALTH MAINTENANCE [...] should be classified as having osteoporosis. [facility] Department of Internal Medicine recommends [...] [place] should beclassified as having osteoporosis. [facility] Department of Internal Medicine recommendsusing [...] fracture risk by FRAX. Viki Hobbs MD IMG DXA PROCEDURES Pascale l Result * Hepatitis C Screening (07/18/2013) Hepatitis C Screening Negative Historical Provider HEALTH MAINTENANCE Final Result from Last 3 Months or Most Recently Relevant to Health Maintenance Insurance [employer] Care Teams Hazardous Material Technician Relationship Specialty Start Date End Date Bakari Medina MD [address] [place] [address] PCP - General Internal Medicine 06/26/21
--- OUTSIDE RECORDS SUMMARY | 2025-03-01 12:18 | XMS_ITS | Patient Health Record ---
Author Organization [facility] Address [address] [place] [address] Care Team Providers Care Hims Coder Name Role Phone [place] [place] [facility] Primary Care Provider Unavailable ANAM Rosado Unavailable [phone] Allergies Allergen (clinical drug ingredient) Drug/Non Drug Allergy documented on EMR Reaction Allergy Type Onset Date Status FEMSTAT 3 (uncoded) Unknown Allergy Active sulfamethoxazole / trimethoprim Bactrim Unknown Drug Allergy Active ofloxacin Ofloxacin otic Drug Allergy Active Eggs or Egg-derived Products Unknown Drug Allergy Active morphine Morphine Unknown Drug Allergy Active vancomycin Vancomycin Unknown Drug Allergy Activ e Reason For Referral No Information Medications Medication SIG (Take, Route, Frequency, Duration) Notes Start Date End Date Status Meloxicam 7.5 MG Tablet 1 tab(s) orally once a day prn Active Alendronate Sodium 70 MG Tablet 1 tab(s) orally once a week; Duration: 28 day(s) Active LORazepam 0.5 MG Tablet 1-2 tab(s) orally q day Active traZODone HCl 100 MG Tablet 1 ab(s) Orally hs Active traZODone HCl 50 MG Tablet 1 tablet at bedtime as needed Orally Once a day; Duration: 30 day(s) Active Omeprazole 40 MG Capsule Delayed Release 1 cap(s) orally daily prn 10/16/2017 Active MULTI VITAMINS WITH MINERALS DIRECTED *Please review for potential replacement for e-prescription and drug interaction check* Active Claritin 10 MG Tablet 1 tab(s) orally once daily prn Active Calcium 600 MG 1 TAB W/D 400MG ORAL BID NAME ONLY Conversion from Multum Review and pick correct strength-formulatio n from Medispan options. If intended option is not shown, discontinue and re-order from Quick Search. 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 exposure: no Past year's travels: [place] alcohol use: yes occasionally drug use: No Hobbies/Exercise habits: cross s titching Coffee/Tea/Soda: yes Coffee 1 cup da y, Tea 1 cups day Marital Status experience no Living with smokers in household yes out side Section Notes: quit smoking 25 - 30 yrs ago quit smoking 25 - 30 yrs ago quit smoking 25 - 30 yrs ago quit smoking 25 - 30 yrs ago quit smoking 25 - 30 yrs ago quit smoking 25 - 30 yrs ago quit smoking 25 - 30 yrs ago quit smoking 25 - 30 yrs ago quit smoking 25 - 30 yrs ago quit smoking 25 - 30 yrs ago quit smoking 25 - 30 yrs ago quit smoking 25 - 30 yrs ago quit smoking 25 - 30 yrs ago quit smoking 25 - 30 yrs ago quit smoking 25 - 30 yrs ago quit smoking 25 - 30 yrs ago quit smoking 25 - 30 yrs ago quit smoking 25 - 30 yrs ago quit smoking 25 - 30 yrs ago quit smoking 25 - 30 yrs ago quit smoking 25 - 30 yrs ago quit smoking 25 - 30 yrs ago quit smoking 25 - 30 yrs ago quit smoking 25 - 30 yrs ago quit smoking 25 - 30 yrs ago quit smoking 25 - 30 yrs ago Problems Problem Type SNOMED Code ICD Code Onset Dates Problem Status W/U Status Risk Notes Problem Hypothyroidism (01655523) Hypothyroidism (acquired) (244.9) Active confirmed Problem Dysphagia (51727271) Dysphagia (438.82) Active confirmed Problem Disseminated lupus erythematosus (20516969) Disseminated lupus erythematosus (710.0) Active confirmed Problem Primary localized osteoarthrosis of hand (709446712) Primary localized osteoarthrosis of hand (715.14) Active confirmed Problem Shoulder joint pain (385366394) Joint pain, shoulder (719.41) Active confirmed Problem Disorder of tendon of shoulder region (43262180) Disorder of tendon of shoulder region NOS (726.10) Active confirmed Problem Bursitis of hip (25917852) Bursitis of hip (726.5) Active confirmed Problem Irritable bowel syndrome (04165246) Irritable bowel syndrome (564.1) Active confirmed Problem Diarrhea (61756564) Diarrhea (787.91) Active confirmed Problem History of polyp of colon (650991701) PRSNL HST COLONIC POLYPS (V12.72) Active confirmed Problem Vipul's disease (37187874) Vipul's disease (245.2) Active confirmed Problem Raynaud's phenomenon (729186806) Raynaud's phenomenon (443.0) Active confirmed Problem 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 Problem Lymphocytic colitis (9353842447) Lymphocytic colitis (558.9) Active confirmed Problem Fatigue (81368682) Other fatigue (R53.83) Active confirmed Problem Reflux esophagitis (538744137) Reflux esophagitis (K21.0) Active confirmed Problem Acquired hypothyroidism (689500755) Acquired hypothyroidism (E03.9) Active confirmed Problem History of polyp of colon (situation) (260913551) History of colonic polyps (Z86.010) Active confirmed Problem Polychondritis (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) Active confirmed Problem Vipul's disease (31562079) Vipul's disease (E06.3) Active confirmed Problem Lymphocytic colitis (8979606586) Lymphocytic colitis (K52.832) Active confirmed Plan Of Treatment Future Test Test Name Order Date TSH WITH REFLEX TO FT4 03/19/2019 TSH WITH REFLEX TO FT4 09/27/2021 Insurance Providers Payer Name Payer Address Payer Phone Subscriber Number Group Number Insured Name Patient Relationship to Insured Coverage Start Date Coverage End Date [employer] [address] [place]ZA[place] [phone] [id number] CRISTOFER CHRISTIANSEN Self - patient is the insured 7 Medical (General) History Medical History History ICD Code Colon rectal tubular adenoma 12/18-Complete colonoscopy //Colon2/07/22to TI=LYMPHOCYTIC COLITIS//COlon11/23/13nl///Colon01/05/18nl to zhkhn-otia-Uhdas 5yrs Esophageal reflux EGD 10/16 n l,HPneg-requires bid Nexium(qd s relief). --Chronic cough-EGD10/16/17nl-Poor vocal cord viz- REc omerazole 40bid x 2 month trial, consier ENT eval. lupus profundus (POPEYE 1:320 H/1:640 SP 03 07) IBS-Bentyl helps. Abdominal Pain, abd bloat andWght Loss, distension-Incomplete 03/17 colonoscopy 12/04/04 Ziggy.Told of IBS,CTAbd and Pelvis 01/06/05nl,UGI/SBF nl 02/17/////Lower Abd pain,cramps,Dabrljcpt8vv-Mnfwmi,Activia s relief-Bentyl started10/21-Cdiff,Giardia neg---//CT ABd 05/24-nl osteoarthritis hands Raynaud's syndrome migraine headache cardiac murmur Hypothyroidism d/t Hashimotos, dx 2003 [id number] Disabled-back pain anemia Bilateral Cataracts lymphocytic colitis Hip Pain - both hips - trx c excercise gall bladder disease osteoarthritis osteopenia does BMD with PCP LFT Elevation-ST/ALT=11 1156, 11/23=72/67---03/19/10- HEpCnl,HepBsAgNEg, AST/ALT+45/41,Ferritin nl//04/01CBC,LFTnl-web AbdPAin, Bloat-Wght Loss- omp=ast/ALT=61/58-, CBCnl-CT ABd/11nl(CBD dil s/pGBectomy) tendinitis shoulder R Injected 04/2009, 1 04/2009, 07/2010, 11/2010 Bone spurs & calcification deposits in R shoulder Spinal stenosis--dx. 2014 bronchitis 02/2017 sinusitis 02/2017 Weak sacrum Wears back brace. Surgical History Surgery Date(Month/Year) bone fragment and calcium deposit remova l R shoulder 02/2014 cholecystectomy-Panitch05/18, post op patrizia n MRCP nl tubal ligation spinal fusion x 3-Linson back hysterectomy, total with BSO 04/28/02 Hospitalization History Reason Date(Month/Year) polychondritis - [facility] 06/08- 06/11/16 [facility] [place]21 [facility] 5 days 01/2021
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
--- OUTSIDE RECORDS SUMMARY | 2025-03-01 12:19 | XMS_ITS | Clinical Summary ---
Author Organization [facility] Address [address] [place] [address] Care Team Providers Care Shine Worker Name Role Phone Viki Hobbs MD Primary Care Provider Allergies Active Allergy Reactions Criticality Noted Date Comments Amoxicillin-Pot Clavulanate Diarrhea Low 01/25/2021 Egg Protein-Containing Drug Products GI Intolerance/Nausea/Vomitin g Low 01/25/2021 Morphine [...] Health Maintenance Due Date Last Done Comments Advance Care Planning 1950 Hepatitis C Virus Screening 1950 DTaP/Tdap/Td Vaccines (1 - Tdap) 1970 Mammogram 1991 Colonoscopy 02/12/1996 Pneumococcal Vaccines 50+ (1 of 1 - PCV) 2001 RSV Vaccine 50 years and older and Patients (1 - Risk 50-74 years 1-dose series) 2001 Zoster (Shingles) Vaccine (1 of 2) 2001 DXA Bone Density (Females,Ages 65 and older) 02/12/2016 Influenza Vaccine 10/14/2024 COVID-19 Vaccine (4 - 2024-2 6 season) 2024 01/14/2021, 06/07/2020, 05/10/2020 Hepatitis B Vaccines Aged Out No long er eligible based on patient's age to complete this topic Insurance [facility] MEDICARE [facility] MEDICARE Advance Directives * Full Code (Latest Code Status on File) Date Activated Date Inactivated Comments 01/25/2021 7:04 AM Care Teams Shine Worker Relationship Specialty Start Date End Date Viki Hobbs MD [address] [place] [address] PCP - General 01/25/21
--- OUTSIDE RECORDS SUMMARY | 2025-03-01 12:19 | XMS_ITS | Encounter Summary ---
Author Organization [place] [address] Care Team Providers Care Rim Buster Name Role Phone Bakari Medina MD Primary Care Provider [phone] Encounter Details Date Type Department Care Team ([facility] Contact Info) Description 02/24/2025 Results Follow-Up Adult Medicine [address] [phone] Bakari Medina MD [address] [place] [address] Social History Tobacco Use Types Packs/Day Years [...] care for your loved ones. For example, early childhood lead teacher or elderly care for an older adult? [...] Info) Description 05/16/2025 2:30 PM EST Appointment [facility] Bone Density [address] [place] [address] 06/27/2025 11:00 AM EDT Office Visit [facility] [place] [address] [place], [place] [phone] Bakari Medina MD [address] [place] [address] documented as of this encounter Goals Goal Patient Goal Type Associated Problems Recent Progress Patient-Stated? Author feel better General Yes Umair Solano, PT PT STG x 8 visits from [facility] on 12/28/2024 General No Umair Solano, PT [...] mobility PT LTG x 16 visits from [facility] on 12/28/2024 General No Umair Solano, PT [...] returned home documented as of this encounter Visit Diagnoses Not on filedocumented in this encounter Additional Health Concerns Assessment Noted Time PHQ-9 Depression Total Score: 0 02/25/20 25 11:49 AM EST documented as of this encounter Care Teams Rim Buster Relationship Specialty Start Date End Date Bakari Medina MD [address] [place] [address] PCP - General Internal Medicine 06/26/21 documented as of this encounter
--- OUTSIDE RECORDS SUMMARY | 2025-03-01 12:19 | XMS_ITS | Encounter Summary ---
Author Organization [facility] [place] [address] Care Team Providers Care Credit Union Teller Name Role Phone Bakari Medina MD Primary Care Provider [phone] Encounter Details Date Type Department Care Team ([facility] Contact Info) Description 02/12/2025 Results Follow-Up [address] [phone] Bakari Medina MD [address] [place] [address] Social History Tobacco Use Types Packs/Day Years [...] Upcoming Encounters Date Type Department Care Team ([facility] [address] Contact Info) Description 05/16/2025 2:30 PM EST Appointment [facility] Bone Density [address] [place] [address] 06/27/2025 11:00 AM EDT Office Visit Adult [address] [phone] Bakari Medina MD [address], [place] documented as of this encounter Goals Goal Patient Goal Type Associated Problems Recent Progress Patient-Stated? Author feel better General Yes Umair Solano, PT PT STG x 8 visits from [facility] on 12/28/2024 General No Umair [...] mobility PT LTG x 16 visits from [facility] on 12/28/2024 General No Umair [...] Assessment Noted Time PHQ-9 Depression Total Score: 1 11/23/19 25 6:49 PM EDT documented as of this encounter Care Teams Credit Union Teller Relationship Specialty Start Date End Date Bakari Medina MD [address] [place] [address] PCP - General Internal Medicine 06/26/21 documented as of this encounter
--- OUTSIDE RECORDS SUMMARY | 2025-03-01 12:19 | XMS_ITS | Clinical Summary ---
Author Organization [facility] Address [address] [employer] [address] [place] [address] Phone Care Team Providers Care Dispatch Coordinator Name Role Phone Bakari Medina MD Primary [...] Place 5 drops in ear(s). 4 Active hojybpzylqqa-Bb-hn on-minerals Tab Take 1 tablet by mouth daily. Active omeprazole (PRILOSEC) 20 MG capsule Take 20 mg by mouth 2 (two) times a day. Active traZODone (DESYREL) 100 MG tablet TAKE 1 TABLET BY MOUTH AT BEDTIME. (TAKE WITH 25MG FOR TOTAL NIGHTLY DOSE OF 125MG.) Active Active Problems Problem Noted Date Diagnosed Date Dizziness and giddiness 09/10/2024 Social History Tobacco Use Types Packs/Day Years [...] Description 04/11/2025 10:00 AM EST Office Visit [facility] [address] [place] [address] Alba Encarnacion MD [address] [place] [address] [email or web address] Health Maintenance Due Date Last Done Comments [...] 02/12/2016 INFLUENZA VACCINE (#1) 2024 COVID-19 VACCINE (2024-2 6 season) 2024 01/14/2021, 06/07/2020, 05/10/2020 TSH [...] Procedure Name Priority Date/Time Associated Diagnosis Comments THYROID STIMULATING HORMONE (TSH) Routine 08/06/2022 from Last 3 Months or Most Recently Relevant to Health Maintenance Results * TSH (08/06/2022) Alba Encarnacion MD LAB BLOOD BKR ORDERABLES Final Result from Last 3 Months or Most Recently Relevant to Health Maintenance Insurance [employer] REPLAC[employer] WORK[employer] COMPENSATION Care Teams Dispatch Coordinator Relationship Specialty Start Date End Date Bakari Medina MD [address] [place] [address] PCP - General Internal Medicine 02/03/23 Additional Source Comments The information contained in this document represents components of the legal health record. It is not the complete legal health record.[facility]
--- OUTSIDE RECORDS SUMMARY | 2025-03-01 12:19 | XMS_ITS | Encounter Summary ---
Author Organization [facility] [place] [address] Care Team Providers Care Icu Registered Nurse Name Role Phone Bakari Medina MD Primary Care Provider [phone]- [phone] Encounter Details Date Type Department Care Team ([facility] Contact Info) Description 02/24/2025 Telephone Adult Medicine [facility] [address] [place] [address] Bakari Medina MD [address] [place], [place] Social History Tobacco Use Types Packs/Day Years [...] for your loved ones. For example, child advocate or elderly care for an older adult? [...] Info) Description 05/16/2025 2:30 PM EST Appointment [facility] Bone Density [address] [place] [address] 06/27/2025 11:00 AM EDT Office Visit Adult [facility] - [address] [phone] Bakari Medina MD [address] [place] [address] documented as of this encounter Goals Goal Patient Goal Type Associated Problems Recent Progress Patient-Stated? Author feel better General Yes Umair Solano, PT PT STG x 8 visits from [facility] on 12/28/2024 General No Umair Solaon, PT Note: [x] = goal MET [] [...] mobility PT LTG x 16 visits from [facility] on 12/28/2024 General No Umair Solano, [...] documented as of this encounter Care Teams Icu Registered Nurse Relationship Specialty Start Date End Date Bakari Medina MD [address] [place] [address] PCP - General Internal Medicine 06/26/21 documented as of this encounter
== END 2025-03-01 10:37 | disposition home or self-care (01) ==
LOC: HO.RHES 10:04
PROVIDERS: PCP Internal Medicine; Visit Provider Internal Medicine Rheumatology
DX: M70.61 Trochanteric bursitis, right hip (principal); M25.551 Pain in right hip; M19.041 Primary osteoarthritis, right hand; M19.042 Primary osteoarthritis, left hand; R22.31 Localized swelling, mass and lump, right upper limb; M79.671 Pain in right foot; M79.672 Pain in left foot
CPT/HCPCS: 20610; 99213

== ENCOUNTER → 2025-03-01 10:04 | Outpatient (BNVA) | payer MEDICARE, SELFPAY | PROVIDERS: PCP Internal Medicine; Visit Provider Internal Medicine Rheumatology | DX: M70.61 Trochanteric bursitis, right hip (principal); M19.041 Primary osteoarthritis, right hand; M19.042 Primary osteoarthritis, left hand; R22.31 Localized swelling, mass and lump, right upper limb; M79.671 Pain in right foot; M79.672 Pain in left foot | CPT/HCPCS: 20610; 99212; J2003; J3301 ==